=== PATIENT | male | born 2000 | race Caucasian/White ===

== ENCOUNTER 2023-02-16 22:16 | Inpatient (IN) | payer MEDICAID, SELFPAY ==
[2023-02-16 22:25] VITALS: BP 154/103; PULSE 87; RESP 18; TEMP 36.4; O2SAT 94
[2023-02-16 22:35] VITALS: BMI 64.5
[2023-02-17 06:00] VITALS: BP 158/101; PULSE 95; RESP 18; O2SAT 94
[2023-02-17 14:00] VITALS: BP 149/103; PULSE 75; RESP 16; TEMP 36.6; O2SAT 96
--- NOTE | 2023-02-17 16:03 | P.NPUHP_ITS ---
Providers/Chief Complaint Admitting Physician: Robbin Rojo MD Chief Complaint: Manic-Schi HPI NPU History of Present Illness Giovanni Bo is a 22 year old male who presented initially to [facility] ED in [facility] with disorganized thinking and disorganized behavior. The patient was transferred to the neuropsychiatric unit in [facility] for further treatment and diagnostic clarification. Patient reports that he has been hospitalized more than 20 times and per records he has been previously prescribed monthly injections for treating schizophrenia but had stopped the injection a few months ago. The patient's mother had corroborated this information and stated that the patient had been residing with the grandmother and had been more agitated while making physical threats to throw objects at the grandmother. Patient acknowledges that he resides with his grandmother and states that he has been gaining weight. He reports that he had previously been treated through [facility] in [facility]. He reports that he hears several voices in his head and stated that it interferes with his thoughts. He reports that he struggles with knowing the difference between reality and fantasy. Patient reports that he has been in the hospital for several days and appeared somewhat confused during the initial evaluation. Inpatient psychiatric history: He had acknowledged having been diagnosed with schizophrenia and states he has been hospitalized more than 20 times throughout his life. Outpatient psychiatric history: Followed by [facility] per patient in [place]. Previous medications-schizoaffective disorder. Drug and alcohol history: He had reported previously using marijuana but states that he uses no drugs or alcohol currently. Allergies: No known drug allergies Surgical history: None reported Medical history: He reports a history of a back injury with some history of disc herniation, history of morbid obesity Current medications: None Family psychiatric history: None Social history: He is a 2 pack/day smoker lives with his grandparents. He has 2 brothers and 1 sister. He dropped out of school in the 12th grade. He reports that he was raised by his grandparents. He had denied any history of abuse. He had reported having some difficulties with learning growing up. Meds NPU Home Medications Medication Instructions Recorded Confirmed Last Taken Type Unable to Assess 02/16/23 02/16/23 Unknown History Allergies Allergy/AdvReac Type Severity Reaction Status Date / Time No Known Allergies Allergy Verified 02/16/23 23:04 Mental Status Exam MSE Comments: He is an morbidly obese white male who appeared his stated age with poor eye contact. His hygiene was poor. There was no evidence of any abnormal involuntary motor movements tics or tremors appreciated. His speech was monotone in quality within significant paucity of speech and increased latency in speech with normal volume. His mood was described as confused. His affect was blunted. His thought process appeared linear and logical. His thought content showed no evidence of homicidal or suicidal ideation. He did appear to be responding to internal stimuli. There were no overt delusions noted. There was significant evidence of confusion with recent and remote memory being impaired. His insight is impaired. His judgment is poor. His impulse control appeared limited. He was alert and oriented to person and place only. Vitals/I&O/Wt Last Vital Signs Temp 98 F 02/17/23 14:00 Pulse 75 02/17/23 14:00 Resp 16 02/17/23 14:00 BP 149/103 02/17/23 14:00 Pulse Ox 96 02/17/23 14:00 O2 Del Method Room Air 02/17/23 14:00 Weight last 48 hrs Weight 204.117 kg A&P Assessment and plan (1) Schizophrenia: (2) Schizoaffective disorder: Plan 22-year-old male with a history of psychosis likely schizophrenia or schizoaffective disorder currently not taking his medications and actively psychotic. 1. Encourage individual, group and milieu therapy. 2. Recommend sober living treatment at the highest level of care to which the patient is willing to commit. 3. Continue q-15 minute checks for safety.? 4.? Trial of oral antipsychotic, discussed trial of latuda 20mg at night. Involuntary Hold Information 96 Hour Hold: 96 Hour Involuntary Admission: No Attestations NPU Medical Necessity Statement*: Inpatient hospitalization is medically necessary and deemed to be the clinically appropriate intervention at this time. The patient will be started on medicatio ns and medications will be titrated as indicated. Patient will be hospitalized for at least 2 midnights. The patient's likely length of stay is 8-10 days. Coding Level of Care Code Acute Code for [facility] Fwd Diagnoses Schizophrenia F20.9 Schizoaffective disorder F25.9
[2023-02-17] MEDS: lurasidone 20 mg Tablet PO (17:20)
[2023-02-17 19:47] VITALS: BP 156/104; PULSE 98; RESP 18; TEMP 36.8; O2SAT 98
[2023-02-17] MEDS: hyDROXYzine 25 mg Capsule 50 MG PO (23:49)
[2023-02-18 06:00] VITALS: BP 133/79; PULSE 78; RESP 15; TEMP 36.6; O2SAT 96
--- NOTE | 2023-02-18 08:53 | PC.NURSE ---
limited assessment r/t pt asleep in bed in room snoring. rest even et unlabored
--- NOTE | 2023-02-18 10:14 | PC.NURSE ---
contact info mother Megan Noriega [phone]
[2023-02-18 14:00] VITALS: BP 141/104; PULSE 114; RESP 20; TEMP 36.6; O2SAT 95
--- NOTE | 2023-02-18 15:12 | W.PM.NPUPNS ---
Subjective NPU Subjective: 22-year-old male with a history of schizophrenia admitted with disorganized thinking and disorganized behavior along with the presence of command auditory hallucinations. He continued to report that he was hearing voices and stated that it was difficult to hear his own thoughts due to the intensity and frequency of the hallucinations. He had isolated himself on the milieu. He had reported no side effects from his Latuda given last night. There was no evidence of aggression on the milieu. He continued to isolate himself on the milieu and had required some prompting to eat food. Mental Status Exam MSE Comments: He is an morbidly obese white male who appeared his stated age with poor eye contact and extremely poor hygiene. There was no evidence of any abnormal involuntary motor movements tics or tremors appreciated. His speech was monotone in quality with significant paucity of speech and increased speech latency with normal volume. His mood was described as okay. His affect was blunted and mood incongruent. His thought process appeared linear and logical. His thought content showed no evidence of homicidal or suicidal ideation. He did appear to be responding to internal stimuli. There were no overt delusions noted. There was significant evidence of confusion with recent and remote memory being impaired. His insight is impaired. His judgment is poor. His impulse control appeared limited. He was alert and oriented to person and place only. Vitals/I&O/Wt Last Vital Signs Temp 97.9 F 02/18/23 14:00 Pulse 114 H 02/18/23 14:00 Resp 20 H 02/18/23 14:00 BP 141/104 02/18/23 14:00 Pulse Ox 95 02/18/23 14:00 O2 Del Method Room Air 02/18/23 06:00 Weight last 48 hrs Weight 204.117 kg A&P Assessment and plan (1) Schizophrenia: (2) Schizoaffective disorder: Plan 22-year-old male with a history of psychosis likely schizophrenia or schizoaffective disorder currently not taking his medications and actively psychotic. 1. Encourage individual, group and milieu therapy. 2. Recommend sober living treatment at the highest level of care to which the patient is willing to commit. 3. Continue q-15 minute checks for safety.? 4.? Increase latuda 40mg at night. Involuntary Hold Information 96 Hour Hold: 96 Hour Involuntary Admission: No Attestations NPU Medical Necessity Statement*: Inpatient hospitalization is medically necessary and deemed to be the clinically appropriate intervention at this time. The patient will be started on medications and medications will be titrated as indicated. The patient's likely length of stay is 8-10 days. Coding Level of Care Code Acute Code for [facility] Fwd Diagnoses Schizophrenia F20.9 Schizoaffective disorder F25.9
[2023-02-18] MEDS: lurasidone 20 mg Tablet 40 MG PO (18:20)
[2023-02-18 19:51] VITALS: BP 117/76; PULSE 84; RESP 18; TEMP 36.6; O2SAT 95
[2023-02-19 06:00] VITALS: RESP 16
[2023-02-19 14:00] VITALS: BP 120/78; PULSE 86; RESP 18; TEMP 36.6; O2SAT 97
--- NOTE | 2023-02-19 15:58 | P.NPUPN_ITS ---
Subjective NPU Subjective: 22-year-old male with a history of schiz ophrenia admitted with disorganized thinking and disorganized behavior along with the presence of command auditory hallucinations. The patient had appeared excessively tired and continued to have limited interaction with staff or peers. He had made some attempt to try to leave the hospital but was redirectable. He had reported no side effects from his Latuda. He continued to endorse being distracted by his thoughts. Mental Status Exam MSE Comments: He is an morbidly obese white male who appeared his stated age with poor eye contact and extremely poor hygiene. There was no evidence of any abnormal involuntary motor movements tics or tremors appreciated. His speech was monotone in quality with significant paucity of speech and increased speech latency with normal volume. His mood was described as allright. His affect was blunted and mood incongruent. His thought process appeared linear but derailed later. His thought content showed no evidence of homicidal or suicidal ideation. He did appear to be responding to internal stimuli reporting multiple voices around him. There were no overt delusions noted. There was signi ficant evidence of confusion with recent and remote memory being impaired. His insight is impaired. His judgment is poor. His impulse control appeared limited. He was alert and oriented to person and place only. Vitals/I&O/Wt Last Vital Signs Temp 97.9 F 02/18/23 19:51 Pulse 84 02/18/23 19:51 Resp 16 02/19/23 06:00 BP 117/76 02/18/23 19:51 Pulse Ox 95 02/18/23 19:51 O2 Del Method Room Air 02/18/23 19:51 A&P Assessment and plan (1) Schizophrenia: (2) Schizoaffective disorder: Plan 22-year-old male with a history of psychosis likely schizophrenia or schizoaffective disorder currently not taking his medications and actively psychotic. 1. Encourage individual, group and milieu therapy. 2. Recommend sober living treatment at the highest level of care to which the patient is willing to commit. 3. Continue q-15 minute checks for safety.? 4.? Continue latuda 40mg at night. Involuntary Hold Information 96 Hour Hold: 96 Hour Involuntary Admission: No Attestations NPU Medical Necessity Statement*: Inpatient hospitalization is medically necessary and deemed to be the clinically appropriate intervention at this time. The patient will be started on medications and medications will be titrated as indicated. The patient's likely length of stay is 8-10 days. Coding Level of Care Code Acute Code for [facility] Fwd Diagnoses Schizophrenia F20.9 Schizoaffective disorder F25.9
[2023-02-19] MEDS: lurasidone 20 mg Tablet 40 MG PO (17:48)
[2023-02-19] MEDS: OLANZapine 5 mg ODT PO (19:43)
--- NOTE | 2023-02-19 20:13 | PC.NURSE ---
SITTING ON BED STARRING AT FLOOR, LIMITED EYE CONTACT NOTED. PT IS OBSERVED TO HAVE A FLAT AFFECT AND GUARDED, SPEECH IS DELAYED OR POSSIBLY LIMITED. PT DENIES SI/HI AND AVH AT THIS TIME. 5ATES ANXIETY 11/10 AND DEPRESSION 12/10. PT WAS OFFERED MEDICATION TO HELP HIS ANXIETY GO DOWN. PT ACCEPTED. PT WAS GIVEN ZYDIS 5 MG ORDERED FOR INCREASED ANXIETY AND AGITATION. PT DENIES PAIN. PT WAS OFFERED A SHOWER DUE TO HYGIENE BEING POOR. PT SHOWERED AND HOSPITAL WARD CLERK WENT TO GET CLOTHING THAT FIT. PT AGREES TO WEAR GOWN IF SCRUBS DO NOT GO UP TO HIS SIZE. ALL QUESTIONS ANSWERED AND SUPPORT VOICED.
[2023-02-19 20:47] VITALS: BP 141/95; PULSE 129; RESP 20; TEMP 36.4; O2SAT 93
--- NOTE | 2023-02-19 22:24 | PC.NURSE ---
AT 2200 PT WAS OBSERVED ON PHONE TALKING AND STATING YOU BETTER TELL THEM TO LET ME OUT OR I'M GONNA START PUNCHING PEOPLE. PT STARTED TO YELL AND CUSS WHILE ON PHONE. STAFF INFORMED PT THAT OTHER PATIENTS ARE SLEEPING AND HE NEEDS TO BE QUIET. PT THEN TOLD STAFF TO FUCK OFF AND LET ME OUT. THEN BANGED THE PHONE AGAINST THE HANDSET ON THE WALL. PT THEN WALKED OFF STOMPING SAYING I'M GOING TO GET OUT OF HERE IF YOU LET ME OUT OR NOT. PT STARTED CHECKING DOORS AND RATTLING KNOBS. SECURITY AND [employer] EMERGENCY DISPATCHER CALLED FOR STANDBY ASSIST IF NEEDED. PT CONTINUED TO CHECK DOORS BUT DID STOP YELLING. AT 2228 PT IS CURRENTLY SITTING ON BED STARRING OUT THE WINDOW.
[2023-02-20 06:00] VITALS: RESP 18
--- NOTE | 2023-02-20 12:08 | PC.NURSE ---
Patient yelled at nurses' station, macarenay, is anyone gonna talk to the doctor?! This RN was on the phone and told him we would be with him in a moment. After getting off of the phone patient was asked what we could do for him and he asked again, has anyone talked to the doctor? This RN asked him what he would like us to talk to the doctor about and he rolled his eyes and walked to his room.
[2023-02-20 14:00] VITALS: BP 146/109; PULSE 98; RESP 15; O2SAT 93
--- NOTE | 2023-02-20 14:55 | W.PM.NPUPNS ---
Subjective NPU Subjective: 22-year-old male with a history of schizophrenia admitted with disorganized thinking and disorganized behavior along with the presence of command auditory hallucinations. The patient reported no side effects from his Latuda at this time. He continued to appear very confused on the milieu. He continued to report that his thoughts were not his own. He reported hearing several voices in his head that interfered with his ability to concentrate and think. He had isolated himself throughout the day in his room. He continued to show evidence of poor hygiene with significant prompting required for showering and engaging in self-care including brushing his teeth. Mental Status Exam MSE Comments: He is an morbidly obese white male who appeared his stated age with poor eye contact and extremely poor hygiene. There was no evidence of any abnormal involuntary motor movements tics or tremors appreciated. His speech was monotone in quality with significant paucity of speech and continued increase in speech latency with normal volume. His mood was described as okay. His affect was blunted and mood incongruent. His thought process appeared linear but derailed later. His thought content showed no evidence of homicidal or suicidal ideation. He did appear to be responding to internal stimuli. There were no overt delusions noted. There was significant evidence of confusion with recent and remote memory being impaired. His insight is impaired. His judgment is poor. His impulse control appeared limited. He was alert and oriented to person and place only. Vitals/I&O/Wt Last Vital Signs Temp 97.6 F 02/19/23 20:47 Pulse 129 H 02/19/23 20:47 Resp 18 02/20/23 06:00 BP 141/95 02/19/23 20:47 Pulse Ox 93 02/19/23 20:47 O2 Del Method Room Air 02/19/23 20:47 A&P Assessment and plan (1) Schizophrenia: (2) Schizoaffective disorder: Plan 22-year-old male with a history of psychosis likely schizophrenia or schizoaffective disorder currently not taking his medications and actively psychotic. 1. Encourage individual, group and milieu therapy. 2. Recommend sober living treatment at the highest level of care to which the patient is willing to commit. 3. Continue q-15 minute checks for safety.? 4.?Increase latuda to 60mg at night. Involuntary Hold Information 96 Hour Hold: 96 Hour Involuntary Admission: No Attestations NPU Medical Necessity Statement*: Inpatient hospitalization is medically necessary and deemed to be the clinically appropriate intervention at this time. The patient will be started on medications and medications will be titrated as indicated. The patient's likely length of stay is 8-10 days. Coding Level of Care Code Acute Code for [facility] Fwd Diagnoses Schizophrenia F20.9 Schizoaffective disorder F25.9
--- NOTE | 2023-02-20 16:16 | PC.NURSE ---
Patient checking doors and demanding to be discharged. He appears somewhat confused, making strange statements such as, you guys pushed the button. You did it. Patient was unable to clarify what this statement meant. He also walked to room 170 and pushed the code blue button. This RN attempted to redirect him and he stated, I did something for you, now you do something for me. Let me out. Nursing staff also attempted to give patient clothes that would fit him better, but he refused to try to utilize them.
[2023-02-20 19:55] VITALS: BP 127/80; PULSE 85; RESP 18; O2SAT 93
[2023-02-20] MEDS: trazodone 50 mg Tablet PO (20:03)
[2023-02-20] MEDS: lurasidone 20 mg Tablet 60 MG PO (20:03)
[2023-02-20] MEDS: haloperidol 5 mg Tablet PO (20:03)
--- NOTE | 2023-02-20 20:22 | PC.NURSE ---
IN BED AWAKE, PT HAS BEEN TO NURSES STATION WITHOUT SHIRT AND KEEPS CLOSING HIS DOOR ALL THE WAY. PT HAS BEEN VERBALLY REDIRECTED AND INSTRUCTED TO LEAVE DOOR OPEN AND PUT SHIRT ON WHEN HE COMES OUT OF ROOM. PT DID GET UPSET BUT WAS ABLE TO FOLLOW DIRECTIONS. PT DENIES PAIN. DENIES SI/HI AND AVH AT THIS TIME. PT STILL STATES HE WANTS TO LEAVE. PT EDUCATED HE IS ON A HOLD AND STAFF ARE TRYING TO HELP HIM. PT REFUSED LATUDA AT 1900 FOR AM NURSE. PT REQUESTED MEDICATIONS FOR SLEEP AND ANXIETY. RATES ANXIETY 07/10 AND DEPRESSION 12/10. PT DID TAKE LATUDA 60 MG WITH EDUCATION AND ENCOURAGEMENT FROM THIS RN. PT WAS ALSO GIVEN TRAZODONE 50 MG REQUESTED FOR SLEEP ORDERED AND HALDOL 5 MG FOR INCREASED ANXIETY ORDERED. PT TOOK MEDICATIONS WITHOUT ISSUES. ALL QUESTIONS ANSWERED AND SUPPORT WAS VOICED. PT NOTED TO HAVE FLAT AFFECT AND IS GUARDED AND SUSPICIOUS ABOUT STAFF AND WHY HE IS HERE.
--- NOTE | 2023-02-21 06:38 | PC.NURSE ---
pt resp documented.
--- NOTE | 2023-02-21 13:18 | P.NPUPN_ITS ---
Subjective NPU Subjective: 22-year-old male with a history of schiz ophrenia admitted with disorganized thinking and disorganized behavior along with the presence of command auditory hallucinations. The patient continue to isolate himself on the milieu. He appeared to have extremely poor hygiene and was disinterested. He had been compliant with his medication and reported no change in his thoughts. He continued to report hearing multiple voices in his head. He stated that he continued to be distracted by his thoughts. Mental Status Exam MSE Comments: He is an morbidly obese white male who appeared his stated age with poor eye contact and extremely poor hygiene. There was no evidence of any abnormal involuntary motor movements tics or tremors appreciated. His speech was monotone in quality with significant paucity of speech and continued increase in speech latency with normal volume. His mood was described as okay. His affect was blunted and mood incongruent. His thought process appeared walker perficial but linear. His thought content showed no evidence of homicidal or suicidal ideation. He did appear to be responding to internal stimuli. There were no overt delusions noted although there was vague ideas of reference. There was significant evidence of confusion with recent and remote memory being impaired. His insight is impaired. His judgment is poor. His impulse control appeared limited. He was alert and oriented to person and place only. Vitals/I&O/Wt Last Vital Signs Temp 97.6 F 02/19/23 20:47 Pulse 85 02/20/23 19:55 Resp 18 02/20/23 19:55 BP 127/80 02/20/23 19:55 Pulse Ox 93 02/20/23 19:55 O2 Del Method Room Air 02/20/23 19:55 A&P Assessment and plan (1) Schizophrenia: (2) Schizoaffective disorder: Plan 22-year-old male with a history of psychosis likely schizophrenia or schizoaffective disorder currently not taking his medications and actively psychotic. 1. Encourage individual, group and milieu therapy. 2. Recommend sober living treatment at the highest level of care to which the patient is willing to commit. 3. Continue q-15 minute checks for safety.? 4.?Continue latuda at 60mg at night. Involuntary Hold Information 96 Hour Hold: 96 Hour Involuntary Admission: No Attestations NPU Medical Necessity Statement*: Inpatient hospitalization is medically necessary and deemed to be the clinically appropriate intervention at this time. The patient will be started on medications and medications will be titrated as indicated. The patient's likely length of stay is 8-10 days. Coding Level of Care Code Acute Code for [facility] Fwd Diagnoses Schizophrenia F20.9 Schizoaffective disorder F25.9
[2023-02-21 16:00] VITALS: BP 132/77; PULSE 78; RESP 14; TEMP 36.6; O2SAT 93
[2023-02-21] MEDS: lurasidone 20 mg Tablet 60 MG PO (17:44)
[2023-02-21 21:22] VITALS: BP 156/106; PULSE 87; RESP 20; TEMP 36.3; O2SAT 92
[2023-02-21] MEDS: nicotine 2 mg Gum BUCCAL (22:06)
[2023-02-22 06:00] VITALS: RESP 16
[2023-02-22] MEDS: nicotine 2 mg Gum BUCCAL ×2 (07:13→18:03)
--- NOTE | 2023-02-22 07:54 | PC.NURSE ---
Patient denies avh and hi. Patient did say he felt very depressed and described it as you know when you're at a republican and then you come back and it doesn't feel the same anymore? That's how it feels. When asked if he had felt like hurting himself he replied, I wouldn't say that. But I would definitely say I'm at my lowest. Patient does endorse low energy and decreased desire to do things he would normally want to do.
--- NOTE | 2023-02-22 12:10 | W.PM.NPUPNS ---
Subjective NPU Subjective: Patient presented today reporting that he is feeling okay. We did talk about trying to get him close this felt better. He reports that he feels the medication is helping and it does not appear that he had been on medication prior to coming to the hospital. We discussed that taking time and that we would monitor him daily to identify improvement in the medication. Mental Status Exam MSE Comments: This is a morbidly obese white male who appeared his stated age with poor eye contact and extremely poor hygiene. There was no evidence of any abnormal involuntary motor movements tics or tremors appreciated. There was mild psychomotor retardation. He was mostly cooperative with exam in mild distress. His speech was monotone in quality with significant paucity of speech and continued increase in speech latency with normal volume. His mood was described as okay. His affect was blunted . His thought process appeared superficial but linear. His thought content showed no evidence of homicidal or suicidal ideation. He did appear to be responding to internal stimuli. There were no overt delusions noted although there was vague ideas of reference. There was significant evidence of confusion with recent and remote memory being impaired. His insight is impaired. His judgment is poor. His impulse control appeared limited. He was alert and oriented to person and place only. Vitals/I&O/Wt Last Vital Signs Temp 97.3 F L 02/21/23 21:22 Pulse 87 02/21/23 21:22 Resp 16 02/22/23 06:00 BP 156/106 02/21/23 21:22 Pulse Ox 92 02/21/23 21:22 O2 Del Method Room Air 02/21/23 16:00 A&P Assessment and plan (1) Schizophrenia: (2) Schizoaffective disorder: Plan 22-year-old male with a history of psychosis likely schizophrenia or schizoaffective disorder currently not taking his medications and actively psychotic. 1. Encourage individual, group and milieu therapy. 2. Recommend sober living treatment at the highest level of care to which the patient is willing to commit. 3. Continue q-15 minute checks for safety.? 4.?Continue latuda at 60mg at night. Involuntary Hold Information 96 Hour Hold: 96 Hour Involuntary Admission: No Attestations NPU Medical Necessity Statement*: Inpatient hospitalization is medically necessary and deemed to be the clinically appropriate intervention at this time. The patient will be started on medications and medications will be titrated as indicated. The patient's likely length of stay is 7-9 days. Coding Level of Care Code Acute Code for g Fwd Diagnoses Schizophrenia F20.9 Schizoaffective disorder F25.9
[2023-02-22 14:00] VITALS: BP 128/77; PULSE 80; RESP 16; TEMP 36.8; O2SAT 95
[2023-02-22] MEDS: lurasidone 20 mg Tablet 60 MG PO (18:02)
[2023-02-22 19:58] VITALS: BP 144/82; PULSE 110; RESP 18; O2SAT 94
[2023-02-23 06:00] VITALS: BP 102/63; PULSE 69; RESP 15; TEMP 36.8; O2SAT 83
[2023-02-23] MEDS: nicotine 2 mg Gum BUCCAL ×5 (08:08→20:03)
--- NOTE | 2023-02-23 11:59 | PC.NURSE ---
PT MOTHER CALLED THIS NURSE ENSURED THAT PT HAS MOTHER ON HIS PT CONTACT LIST AND SHE IS. PT MOTHER IS CONCERNED ABOUT PT PLACEMENT AFTER HOSPITAL STAY. PT MOTHER DOES NOT WISH FOR PT TO GO BACK TO STAY WITH HIS GRANDMOTHER SHE DOES NOT FEEL SHE IS ABLE TO CARE FOR HIM AT THIS TIME. PT MOTHER WOULD PREFER TO HAVE PLACEMENT IN A FACILITY OR A NURSING HOME TO CARE FOR HIM THAT IS NEAR HER.
--- NOTE | 2023-02-23 12:22 | P.NPUPN_ITS ---
Subjective NPU Subjective: Patient presented today continuing to struggle with his psychosis. He identified that he was supposed to be discharged today with there being no evidence to that end. He also claimed that he had been here for 4 weeks when he has not been here for even a week. He said that they are doing something with the time. At 1 point while reporting that he was calling a friend he called 911 and they called us back and identified that they know him from this kind of behavior. We discussed the fact that we are going to need to increase the Latuda and possibly add another agent in an attempt to clear his psychosis and will likely need a 21-day hold. Mental Status Exam MSE Comments: This is a morbidly obese white male who appeared his stated age with poor eye contact and extremely poor hygiene. There was no evidence of any abnormal involuntary motor movements tics or tremors appreciated. There was mild psychomotor retardation. He was mostly cooperative with exam in mild distress. His speech was monotone in quality with significant paucity of speech and continued increase in speech latency with normal volume. His mood was described as okay. His affect was blunted . His thought process appeared superficial but linear. His thought content showed no evidence of homicidal or suicidal ideation. He did appear to be responding to internal stimuli. There were no overt delusions noted although there was vague ideas of reference. There was significant evidence of confusion with recent and remote memory being impaired. His insight is impaired. His judgment is poor. His impulse control appeared limited. He was alert and oriented to person and place only. Vitals/I&O/Wt Last Vital Signs Temp 98.2 F 02/23/23 06:00 Pulse 69 02/23/23 06:00 Resp 15 02/23/23 06:00 BP 102/63 02/23/23 06:00 Pulse Ox 83 L 02/23/23 06:00 O2 Del Method Room Air 02/23/23 06:00 Weight last 48 hrs Weight 199.581 kg Weight 204.117 kg A&P Assessment and plan (1) Schizophrenia: (2) Schizoaffective disorder: Plan 22-year-old male with a history of psychosis likely schizophrenia or schizoaffective disorder currently not taking his medications and actively psychotic. 1. Encourage individual, group and milieu therapy. 2. Recommend sober living treatment at the highest level of care to which the patient is willing to commit. 3. Continue q-15 minute checks for safety.? 4.?Continue latuda at 60mg at night. May have to consider Invega or Abilify in addition to increasing Latuda to assist with psychosis Involuntary Hold Information 96 Hour Hold: 96 Hour Involuntary Admission: No Attestations NPU Medical Necessity Statement*: Inpatient hospitalization is medically necessary and deemed to be the clinically appropriate intervention at this time. The patient will be started on me dications and medications will be titrated as indicated. The patient's likely length of stay is 7-9 days. Coding Level of Care Code Acute Code for [facility] Fwd Diagnoses Schizophrenia F20.9 Schizoaffective disorder F25.9
--- NOTE | 2023-02-23 13:31 | PC.NURSE ---
THE POLICE DEPARTMENT CONTACTED THE UNIT STATING THAT THIS PT HAD CONTACTED THEM TELLING THEM TAHT WE NEEDED THEM. ATTEMPTED EDUCATION ON THAT THE PT SHOULD NOT CONTACT 911 HE IS ON A HOLD. PT IS RESISTANT TO LEARNING AND IRRITABLE ABOUT NOT BEING ABLE TO LEAVE THE UNIT AT THIS TIME.
[2023-02-23 14:00] VITALS: BP 153/86; PULSE 85; RESP 15; TEMP 36.4; O2SAT 92
[2023-02-23] MEDS: lurasidone 20 mg Tablet 60 MG PO (18:06)
[2023-02-23 19:38] VITALS: BP 145/94; PULSE 87; RESP 15; TEMP 36.7; O2SAT 95
[2023-02-24 06:00] VITALS: BP 153/83; PULSE 69; RESP 16; TEMP 36.5; O2SAT 93
--- NOTE | 2023-02-24 09:45 | P.NPUPN_ITS ---
Subjective NPU Subjective: Patient presented today reporting that he is doing okay. He was appearing a little less confused per staff and slightly less so and direct interview. He reports he is not having any problems with the Latuda but insinuated or alluded to the fact that he is essentially doing what ever is asked of him and likely will not take the medication when he is gone. We discussed how that would likely lead to him returning or some situation with him having less control. He then alluded to his grandmother being his guardian and it was unclear if he understood what that meant but he suggested that his head is attached to her house. We agreed we would have the social work team connect with her to make sure we understood the relationship. Mental Status Exam MSE Comments: This is a morbidly obese white male who appeared his stated age with poor eye contact and extremely poor hygiene. There was no evidence of any abnormal involuntary motor movements tics or tremors appreciated. There was mild psychomotor retardation. He was mostly cooperative with exam in mild distress. His speech was monotone in quality with significant paucity of speech and continued increase in speech latency with normal volume. His mood was described as okay. His affect was blunted . His thought process appeared superficial but linear. His thought content showed no evidence of homicidal or suicidal ideation. He did appear to be responding to internal stimuli. There were no overt delusions noted although there was vague ideas of reference. There was significant evidence of confusion with recent and remote memory being impaired. His insight is impaired. His judgment is poor. His impulse control appeared limited. He was alert and oriented to person and place only. Vitals/I&O/Wt Last Vital Signs Temp 97.7 F 02/24/23 06:00 Pulse 69 02/24/23 06:00 Resp 16 02/24/23 06:00 BP 153/83 02/24/23 06:00 Pulse Ox 93 02/24/23 06:00 O2 Del Method Room Air 02/24/23 06:00 Weight last 48 hrs Weight 199.581 kg Weight 204.117 kg A&P Assessment and plan (1) Schizophrenia: (2) Schizoaffective disorder: Plan 22-year-old male with a history of psychosis likely schizophrenia or schizoaffective disorder currently not taking his medications and actively psychotic. 1. Encourage individual, group and milieu therapy. 2. Recommend sober living treatment at the highest level of care to which the patient is willing to commit. 3. Continue q-15 minute checks for safety.? 4.?Continue latuda at 60mg at night. May have to consider Invega or Abilify in addition to increasing Latuda to assist with psychosis Involuntary Hold Information 96 Hour Hold: 96 Hour Involuntary Admission: No Attestations NPU Medical Necessity Statement*: Inpatient hospitalization is medically necessary and deemed to be the clinically appropriate intervention at this time. The patient will be started on medications and medications will be titrated as indicated. The patient's likely length of stay is 7-9 days. Coding Level of Care Code Acute Code for [facility] Fwd Diagnoses Schizophrenia F20.9 Schizoaffective disorder F25.9
[2023-02-24] MEDS: nicotine 2 mg Gum BUCCAL (13:08)
[2023-02-24 14:00] VITALS: BP 141/87; PULSE 68; RESP 20; TEMP 36.9; O2SAT 96
[2023-02-24] MEDS: lurasidone 20 mg Tablet 60 MG PO (17:54)
[2023-02-24 20:09] VITALS: BP 138/82; PULSE 110; RESP 18; TEMP 36.9; O2SAT 94
[2023-02-24] MEDS: trazodone 50 mg Tablet PO ×2 (20:34→22:08)
[2023-02-24] MEDS: haloperidol 5 mg Tablet PO (20:34)
--- NOTE | 2023-02-24 21:47 | PC.NURSE ---
IN BED RESTING AROUSES TO VOICE. PT DENIES SI/HI AND AVH AT THIS TIME. PT DENIES PAIN. CONTINUES TO HAVE A FLAT AFFECT AND ISOLATES AND IS WITHDRAWN TO ROOM. PT APPEARS SAD AND DISTANT. RATES ANXIETY AND DEPRESSION 10/. PT REQUEST SOMETHING FOR ANXIETY AND TO HELP HIM SLEEP. PT WAS GIVENS HALDOL 5 MG FOR INCREASED ANXIETY AND TRAZODONE 50 MG ORDERED FOR INSOMNIA. PT WAS GIVEN A SANDWHICH AND DRINK REQUESTED. ALL QUESTIONS ANSWERED AND SUPPORT VOICED.
[2023-02-24] MEDS: hyDROXYzine 25 mg Capsule 50 MG PO (22:08)
--- NOTE | 2023-02-25 05:12 | PC.NURSE ---
PT CONTINUED TO BE AGITATED AND UNABLE TO SLEEP AFTER TRAZODONE 50 MG AND HALDOL 5MG THAT WAS GIVEN LAST NIGHT. TRAZODONE 50 MG WAS REPEATED ORDERED AND VISTARIL 50 MG WAS GIVEN ORDERED FOR CONTINUED ANXIETY. MEDICATIONS DEEMED EFFECTIVE. PT HAS SLEPT APPROXIMATELY 9 HOURS THIS SHIFT.
[2023-02-25 06:00] VITALS: RESP 16
[2023-02-25] MEDS: eucerin cream 113 gm Jar 1 APPLIC TOPICAL (10:48)
[2023-02-25] MEDS: nicotine 2 mg Gum BUCCAL (11:21)
[2023-02-25 14:00] VITALS: BP 122/80; PULSE 73; RESP 20; TEMP 36.3; O2SAT 95
[2023-02-25] MEDS: lurasidone 80 mg Tablet PO (18:27)
--- NOTE | 2023-02-25 18:47 | P.NPUPN_ITS ---
Subjective NPU Subjective: Patient presented today reporting that he is doing okay. He was appearing confused still per staff. He reports he is not having any problems with the Latuda but insinuated or alluded to the fact that he is essentially doing what ever is asked of him and likely will not take the medication when he is gone. He then alluded to his grandmother being his guardian and so we discussed we are trying to reach her to figure this out. We discussed likelihood we would need to file for 21 day hold. Mental Status Exam MSE Comments: This is a morbidly obese white male who appeared his stated age with poor eye contact and extremely poor hygiene. There was no evidence of any abnormal involuntary motor movements tics or tremors appreciated. There was mild psychomotor retardation. He was mostly cooperative with exam in mild distress. His speech was monotone in quality with significant paucity of speech and continued increase in speech latency with normal volume. His mood was described as okay. His affect was blunted . His thought process appeared superficial but linear. His thought content showed no evidence of homicidal or suicidal ideation. He did appear to be responding to internal stimuli. There were no overt delusions noted although there was vague ideas of reference. There was significant evidence of confusion with recent and remote memory being impaired. His insight is impaired. His judgment is poor. His impulse control appeared limited. He was alert and oriented to person and place only. Vitals/I&O/Wt Last Vital Signs Temp 98.2 F 02/25/23 20:01 Pulse 86 02/25/23 20:01 Resp 20 H 02/25/23 20:01 BP 136/81 02/25/23 20:01 Pulse Ox 97 02/25/23 20:01 O2 Del Method Room Air 02/25/23 20:01 A&P Assessment and plan (1) Schizophrenia: (2) Schizoaffective disorder: Plan 22-year-old male with a history of psychosis likely schizophrenia or schizoaffective disorder currently not taking his medications and actively psychotic. 1. Encourage individual, group and milieu therapy. 2. Recommend sober living treatment at the highest level of care to which the patient is willing to commit. 3. Continue q-15 minute checks for safety.? 4.?Continue latuda at 60mg at night. Increase to 80 mg. May have to consider Invega or Abilify to assist with psychosis Involuntary Hold Information 96 Hour Hold: 96 Hour Involuntary Admission: No Attestations NPU Medical Necessity Statement*: Inpatient hospitalization is medically necessary and deemed to be the clinically appropriate intervention at this time. The patient will be started on medications and medications will be titrated as indicated. The patient's likely length of stay is 7-9 days. Coding Level of Care Code Acute Code for [facility] Fwd Diagnoses Schizophrenia F20.9 Schizoaffective disorder F25.9
[2023-02-25 20:01] VITALS: BP 136/81; PULSE 86; RESP 20; TEMP 36.8; O2SAT 97
[2023-02-26 06:00] VITALS: RESP 18
[2023-02-26] MEDS: nicotine 2 mg Gum BUCCAL ×4 (08:38→18:54)
[2023-02-26 14:00] VITALS: RESP 18
--- NOTE | 2023-02-26 14:16 | PC.NURSE ---
at phone, patient upset, stating that he needs to be discharged. patient states that if he had a cigarrette then he might be able to stay. patient at door. patient stating that we need to release him
--- NOTE | 2023-02-26 14:36 | W.PM.NPUPNS ---
Subjective NPU Subjective: Patient presented today reporting that he is wanting to leave but unable to articulate the reason why speaking about a lot of different subjects not relating to discharge. He had a code 10 moment yesterday and discussed filing for the 21-day hold. We discussed not having a guardian and need for a more reliable antipsychotic like injectable or Clozaril. Mental Status Exam MSE Comments: This is a morbidly obese white male who appeared his stated age with poor eye contact and extremely poor hygiene. There was no evidence of any abnormal involuntary motor movements tics or tremors appreciated. There was mild psychomotor retardation. He was mostly cooperative with exam in mild distress. His speech was monotone in quality with significant paucity of speech and continued increase in speech latency with normal volume. His mood was described as okay. His affect was blunted . His thought process appeared superficial but linear. His thought content showed no evidence of homicidal or suicidal ideation. He did appear to be responding to internal stimuli. There were no overt delusions noted although there was vague ideas of reference. There was significant evidence of confusion with recent and remote memory being impaired. His insight is impaired. His judgment is poor. His impulse control appeared limited. He was alert and oriented to person and place only. Vitals/I&O/Wt Last Vital Signs Temp 98.2 F 02/25/23 20:01 Pulse 86 02/25/23 20:01 Resp 18 02/26/23 06:00 BP 136/81 02/25/23 20:01 Pulse Ox 97 02/25/23 20:01 O2 Del Method Room Air 02/25/23 20:01 A&P Assessment and plan (1) Schizophrenia: (2) Schizoaffective disorder: Plan 22-year-old male with a history of psychosis likely schizophrenia or schizoaffective disorder currently not taking his medications and actively psychotic. 1. Encourage individual, group and milieu therapy. 2. Recommend sober living treatment at the highest level of care to which the patient is willing to commit. 3. Continue q-15 minute checks for safety.? 4.?Continue latuda at 60mg at night. Increased to 80 mg. May have to consider Invega or Abilify to assist with psychosis Involuntary Hold Information 96 Hour Hold: 96 Hour Involuntary Admission: No Attestations NPU Medical Necessity Statement*: Inpatient hospitalization is medically necessary and deemed to be the clinically appropriate intervention at this time. The patient will be started on medications and medications will be titrated as indicated. The patient's likely length of stay is 7-9 days. Which may be lengthened by 21-day hold. Coding Level of Care Code Acute Code for [facility] Fwd Diagnoses Schizophrenia F20.9 Schizoaffective disorder F25.9
--- NOTE | 2023-02-26 15:03 | DCPLANNER ---
IMM was printed and copy was placed in pts file.
--- NOTE | 2023-02-26 17:03 | PC.NURSE ---
CODE 10 called. Patient at using full body weight against door. patient punching at glass around nurse station. Patient demanding to be let out. No medications administered. Patient appears to be delusional. talking to self about DNA patches and how DNA is intermingled. Difficult to redirect patient. After code called, patient eventually calmed down and staff gave him space. Patient continued to talk to self.
--- NOTE | 2023-02-26 18:16 | PC.NURSE ---
REFUSED VITALS PT REFUSED 1400 VITALS. RESPIRATIONS WERE COUNTED AT 18. WILL CONTINUE TO MONITOR.
[2023-02-26] MEDS: lurasidone 80 mg Tablet PO (18:56)
--- NOTE | 2023-02-26 19:00 | PC.NURSE ---
patient refused latuda, stating that the timing isn't right. When asked about what timing would be more fitting, patient stated in a next life . Multiple attempts, patient still refused.
[2023-02-26 20:30] VITALS: BP 165/106; PULSE 113; RESP 18; TEMP 36.3; O2SAT 96
--- NOTE | 2023-02-26 21:11 | PC.NURSE ---
Patient has been on the bench by the nurses station for at least the past hour. Patient has been talking to himself about delusional thoughts. Talking about the law and bible. Demanding that we let him out and stating that he does not have a problem with fighting anyone that messes with him. Patient stated that he has been waiting all day to be discharged and we just need to open the doors and let him out.
--- NOTE | 2023-02-26 21:42 | PC.NURSE ---
AT NURSES STATION DEMANDING HE BE DISCHARGED,APPEARS TO BE RESPONDING TO EXTERNAL STIMULI, HAS BEEN CONVERSING WITH UNSEEN OTHERS NOW FOR 3 HOURS. REFUSED ANY ANTI ANXIETY MEDICATIONS TO HELP HIM RELAX. PT IS CONSTANTLY SPEAKING WITHOUT TAKING A BREAK, CONVERSATION IS NONSENSICAL IN NATURE. MAKING STATEMENT ABOUT HOW THINGS ARE ILLEGAL AND HE KNOWS IT. PT VERBALLY REDIRECTED WITH LITTLE RESOLVE. PT DENIES SI/HI AND AVH AT THIS TIME. DENIES PAIN. DECLINES RATING ANXIETY AND DEPRESSION STATING I'M DONE BEING FORCED MEDICATIONS. PT WAS EDUCATED THAT NO ONE HERE HAS FORCED HIM TO TAKE MEDICATIONS. PT STATED I KNOW ITS JUST NOT GOING TO HAPPEN ANYMORE. SUPPORT VOICED, INCREASE IN STAFF PRESENCE FOR VERBAL REDIRECTION AND PT CHOICES.
--- NOTE | 2023-02-26 22:20 | PC.NURSE ---
Patient continues to talk to himself with delusional thoughts near the nurses station. Patient stated that for legal reason we need to let him out. Patient then proceeded to push on the door to the front lobby. Patient then continue to talk about releasing him for legal reason.
--- NOTE | 2023-02-27 00:26 | PC.NURSE ---
Patient still on the bench near the nurses station stating that this is malpractice and that he will be leaving tomorrow no matter what. This tech informed patient that he would need to speak with the doctor about this in the morning. Patient is not being compliant with directions or instructions of lowering his voice or walking away from the nurses station. Patient is continuing to speak in a loud voice about how people need to stop pushing his fucking buttons and that this is all malpractice and that we had better let him out. Patient is now making treats that if anyone has anything to say to him they can step in the akers and say it to his fucking face Charge Nurse informed of patients threats.
--- NOTE | 2023-02-27 00:59 | PC.NURSE ---
PT CONTINUES TO SIT ON BENCH BY NURSES STATION AND SPEAK TO UNSEEN OTHERS WELL YELL AT THE NURSING STAFF THINGS LIKE THIS IS MALPRACTICE AND YOU KNOW IT. MAYBE YOU ALL NEED TO COME OUT IN THE [place] AND TELL ME THAT SHIT TO MY FACE AND I'M GONNA KNOCK YOU ALL OUT. PT HAS BEEN ENCOURAGED TO GO TO DAY ROOM OR TO ROOM. PT HAS ALSO BEEN OFFERED PHARMACEUTICAL INTERVENTION BUT PT STATES :NAH THAT STUFF DON'T WORK ON MY SYSTEM ANYMORE I CAN'T TAKE IT, RN INFORMED PT HE COULD TRY AND SEE IF THE MEDICATIONS HELPS AND HE CAN GET SOME REST THEN TALK TO THE DRKatheryn IN THE MORNING. PT CONTINUES TO DECLINE DEMANDING HE BE LET OUT OF THE FACILITY AT ONCE. SUPPORT VOICED.
--- NOTE | 2023-02-27 04:09 | PC.NURSE ---
CONTINUES TO SIT ON BENCH BY NURSES STATION DEMANDING TO LEAVE. PT IS DELUSIONAL THREATENS STAFF AND REFUSES TO GO TO ROOM OR DAY ROOM.
--- NOTE | 2023-02-27 05:02 | PC.NURSE ---
DR. LEIJA IN [place]. NOTIFIED OF PT BEHAVIORS AND PT NOT SLEEPING. NO NEW ORDERS WERE RECEIVED. IS CONSIDERING A LONG ACTING INJECTABLE.
--- NOTE | 2023-02-27 05:51 | PC.NURSE ---
PT HAS BEEN ON BENCH NEAR NURSES STATION ALL SHIFT SINCE 190 LAST NIGHT. PT HAS NOT SLEPT AND HAS REFUSED ALL PHARMACEUTICAL INTERVENTIONS. PT HAS BEEN GIVEN MULTIPLE CHOICES AND VERBAL REDIRECTION WITHOUT ANY RESOLVE. PT CONTINUES TO MAKE THREATS TO STAFF IF IS NOT ALLOWED TO LEAVE THIS MORNING. PT HAS BEEN EDUCATED THAT HE WILL NOT BE DISCHARGING. ALL QUESTIONS ANSWERED AND SUPPORT VOICED.
[2023-02-27 06:00] VITALS: BP 126/70; PULSE 73; RESP 20; TEMP 36.6; O2SAT 97
--- NOTE | 2023-02-27 08:26 | PC.NURSE ---
Resting in bed this morning. He says he slept poorly last night, which coinsides with the report shift supervisor rn gave. Patient denies avh and si/hi. When asked to rate his depression and anxiety he responded that he feels rough and that they are up there. He denies any exacerbating factors.
[2023-02-27] MEDS: nicotine 2 mg Gum BUCCAL (14:19)
--- NOTE | 2023-02-27 15:55 | PC.NURSE ---
Patient repeatedly asking if he is going to be released today despite being told he is not multiple times. Patient then ran into the door near the vestibule to try to get it to open and when it did not he began saying staff was holding him hostage. After that, he walked to the door at the end of the akers that leads to the [facility] and attempted multiple times to open that door. Security, Ian, was already present and nursing staff were able to redirect patient. He is now on the phone and is saying, this is like a sentence man. Why won't you come and get me? When someone already has problems because of certain situations it's laura like putting someone in a sentence.
--- NOTE | 2023-02-27 19:23 | W.PM.NPUPNS ---
Subjective NPU Subjective: Patient is a 22-year-old male with schizophrenia with a rule out of schizoaffective disorder. The patient remained confused on the unit. the patient had made attempts to call 911 stating that he was being kidnapped. He had made attempts to leave the hospital and required addition as needed medications as he had become increasingly agitated on the unit. A code 10 was called and the patient had refused his Latuda initially. He continued to appear confused and was unable to state where he was today on interview. He had refused his Latuda yesterday. The patient had limited oral intake as he had appeared somewhat suspicious about his food being poisoned. Mental Status Exam MSE Comments: This is a morbidly obese white male who appeared his stated age with poor eye contact and extremely poor hygiene. There was no evidence of any abnormal involuntary motor movements tics or tremors appreciated. There was mild psychomotor retardation. He was minimally cooperative with exam in mild distress. His speech was monotone in quality with significant paucity of speech and continued increase in speech latency with normal volume. His mood was not endorsed. His affect was blunted . His thought process appeared superficial but linear. His thought content showed no evidence of homicidal or suicidal ideation. He did appear to be responding to internal stimuli. There was overt paranoia. There was significant evidence of confusion with recent and remote memory being impaired. His insight is impaired. His judgment is poor. His impulse control appeared limited. He was alert and oriented to person only. Vitals/I&O/Wt Last Vital Signs Temp 97.8 F 02/27/23 06:00 Pulse 73 02/27/23 06:00 Resp 20 H 02/27/23 06:00 BP 126/70 02/27/23 06:00 Pulse Ox 97 02/27/23 06:00 O2 Del Method Room Air 02/27/23 06:00 A&P Assessment and plan (1) Schizophrenia: (2) Schizoaffective disorder: Plan 22-year-old male with a history of psychosis likely schizophrenia or schizoaffective disorder currently not taking his medications and actively psychotic. 1. Encourage individual, group and milieu therapy. 2. Recommend sober living treatment at the highest level of care to which the patient is willing to commit. 3. Continue q-15 minute checks for safety.? 4.?Continue latuda to 80 mg. Patient not taking medications and may require forced medications. Involuntary Hold Information 96 Hour Hold: 96 Hour Involuntary Admission: No Attestations NPU Medical Necessity Statement*: Inpatient hospitalization is medically necessary and deemed to be the clinically appropriate intervention at this time. The patient will be started on medications and medications will be titrated as indicated. The patient's likely length of stay is 10-14 days. Coding Level of Care Code Acute Code for [facility] Fwd Diagnoses Schizophrenia F20.9 Schizoaffective disorder F25.9
[2023-02-28 05:56] VITALS: RESP 18
--- NOTE | 2023-02-28 08:54 | PC.NURSE ---
patient upset, stating that he is wanting to be let out. Patient called 911 so staff shut off phone. patient beat phone against wall a few times. Patient then slammed himself against the door. Security called. Attempts to redirect were not beneficial to situation. Security is doing well at redirection
--- NOTE | 2023-02-28 08:54 | PC.NURSE ---
patient stated to security that he knows the door is invinsible because he made it. Patient states that he made it for punching
[2023-02-28] MEDS: nicotine 2 mg Gum BUCCAL (08:56)
[2023-02-28] MEDS: haloperidol inj 5 mg/mL INJ 1 mL IM (09:40)
[2023-02-28] MEDS: diphenhydrAMINE 50 mg/mL SDV 1mL IM (09:40)
[2023-02-28] MEDS: LORazepam 2 mg/mL INJ 1 mL IM (09:40)
--- NOTE | 2023-02-28 09:43 | PC.NURSE ---
Patient began banging phone against wall. Patient then started ramming the door. Security and Code 10 called. Attempts to stop patient were not successful. Attempts to redirect were not successful. Dr. Covington ordered B52 IM and restraints. This nurse went to pull meds as staff had to physically transfer patient to restraints room. Nate came quickly. Attempts to de-esculate were not successful. When this nurse attempted to administer shots, patient began flalling, attempting to get out of restraints. Patient was able to escape the leg restrains. Staff present: warehouse trainer Judith Grewal, Dakota Watson, Kush Villanueva, Stephan Lanier, Nate Langston.
--- NOTE | 2023-02-28 10:35 | W.PM.BREST ---
Face to Face: Restrn/Seclusion Events leading up to initiation: Demonstrating self-destructive behavior (cutting, hitting velasco etc.) Evaluation of patient's immediate situation: Alert and oriented and Signs of psychological distress Patient reaction since intervention applied: De-escalation/no displays of violent/destructive behavior Recent labs reviewed: No Review of medications: Yes Patient's current medical/behavioral condition: No new concerns since last ROS Need for restraint or seclusion is: No longer present Attending notified: Attending completed assessment
--- NOTE | 2023-02-28 11:28 | PC.NURSE ---
Dr. Covington performed an evaluation on patient at 1040. Security and pressing department supervisor were present. Patient cooperative.
--- NOTE | 2023-02-28 11:28 | PC.NURSE ---
Patient released from restrains/seclusion at 1050 and then lead to his room
--- NOTE | 2023-02-28 19:27 | W.PM.NPUPNS ---
Subjective NPU Subjective: Patient is a 22-year-old male with schizophrenia with a rule out of schizoaffective disorder. the patient had required restraint and seclusion today as he had attempted to leave the hospital and break the door on the unit. Patient had continued to report that it was too late for Latuda to work. He had stated that he wished to go home to live with his grandmother. Patient had been informed that the patient's family had wanted the patient to get treatment the patient was unable to provide any information regarding his current whereabouts and how he would be able to get home. He had defecated on himself and had been unable to manage his basic hygiene including wiping his bottom after defecating in the toilet. He had continued to report that he was distracted by the voices in his head. He reported that he did not wish to take Latuda any further. He had not endorsed a history of a trial on Abilify and stated that he would consider taking this medication if it would shorten his hospital stay. Mental Status Exam MSE Comments: This is a morbidly obese white male who appeared his stated age with poor eye contact and extremely poor hygiene. There was no evidence of any abnormal involuntary motor movements tics or tremors appreciated. There was continued psychomotor slowing. He was minimally cooperative with exam in mild distress. His speech was monotone in quality with significant paucity of speech and continued increase in speech latency with normal volume. His mood was not endorsed. His affect was blunted . His thought process appeared superficial but linear. His thought content showed no evidence of homicidal or suicidal ideation. He did appear to be responding to internal stimuli and endorsed hearing multiple voices. There was overt paranoia regarding food being poisoned. There was significant evidence of confusion with recent and remote memory being impaired. His insight is impaired. His judgment is poor. His impulse control appeared limited. He was alert and oriented to person only. Vitals/I&O/Wt Last Vital Signs Temp 97.8 F 02/27/23 06:00 Pulse 73 02/27/23 06:00 Resp 18 02/28/23 05:56 BP 126/70 02/27/23 06:00 Pulse Ox 97 02/27/23 06:00 O2 Del Method Room Air 02/27/23 06:00 A&P Assessment and plan (1) Schizophrenia: (2) Schizoaffective disorder: Plan 22-year-old male with a history of psychosis likely schizophrenia or schizoaffective disorder currently not taking his medications and actively psychotic. 1. Encourage individual, group and milieu therapy. 2. Recommend sober living treatment at the highest level of care to which the patient is willing to commit. 3. Continue q-15 minute checks for safety.? 4.?Discontinue latuda and attempt trial of abilify 10mg today; if patient continues to refuse, he will require forced medications through extended involuntary stay. Involuntary Hold Information 96 Hour Hold: 96 Hour Involuntary Admission: No Attestations NPU Medical Necessity Statement*: Inpatient hospitalization is medically necessary and deemed to be the clinically appropriate intervention at this time. The patient will be started on medications and medications will be titrated as indicated. The patient's likely length of stay is 10-14 days. Coding Level of Care Code Acute Code for [facility] Diagnoses Schizophrenia F20.9 Schizoaffective disorder F25.9
[2023-02-28] MEDS: ARIPiprazole 10 mg Tablet PO (19:56)
[2023-02-28 21:04] VITALS: RESP 18
[2023-03-01 06:00] VITALS: RESP 16
[2023-03-01] MEDS: nicotine 2 mg Gum BUCCAL ×3 (06:38→18:09)
--- NOTE | 2023-03-01 13:52 | W.PM.NPUPNS ---
Subjective NPU Subjective: Patient is a 22-year-old male with schizophrenia with a rule out of schizoaffective disorder. No restraints or seclusions, Patient refused his abilify and remains psychotic and barely redirectable. He refused his Abilify today. He continued to appear extremely guarded and suspicious about taking medications. He had repeatedly attempted to call family members and continued to have evidence of extremely poor self-care. Mental Status Exam MSE Comments: This is a morbidly obese white male who appeared his stated age with poor eye contact and extremely poor hygiene. There was no evidence of any abnormal involuntary motor movements tics or tremors appreciated. There was continued psychomotor slowing. He was minimally cooperative with exam in mild distress. His speech was monotone in quality with significant paucity of speech and continued increase in speech latency with normal volume. His mood was described as okay. His affect was blunted . His thought process appeared superficial but linear. His thought content showed no evidence of homicidal or suicidal ideation. He did appear to be responding to internal stimuli and endorsed hearing multiple voices. There was overt paranoia regarding food contamination. His recent and remote memory were impaired. His insight is impaired. His judgment is poor. His impulse control appeared limited. He was alert and oriented to person only. Vitals/I&O/Wt Last Vital Signs Temp 97.8 F 02/27/23 06:00 Pulse 73 02/27/23 06:00 Resp 16 03/01/23 06:00 BP 126/70 02/27/23 06:00 Pulse Ox 97 02/27/23 06:00 O2 Del Method Room Air 02/27/23 06:00 A&P Assessment and plan (1) Schizophrenia: (2) Schizoaffective disorder: Plan 22-year-old male with a history of psychosis likely schizophrenia or schizoaffective disorder currently not taking his medications and actively psychotic. 1. Encourage individual, group and milieu therapy. 2. Recommend sober living treatment at the highest level of care to which the patient is willing to commit. 3. Continue q-15 minute checks for safety.? 4.?Patient refusing any psychotropics and will likely require forced medications as patient is unlikely to improve without antipsychotic medications. Involuntary Hold Information 96 Hour Hold: 96 Hour Involuntary Admission: No Attestations NPU Medical Necessity Statement*: Inpatient hospitalization is medically necessary and deemed to be the clinically appropriate intervention at this time. The patient will be started on medications and medications will be titrated as indicated. The patient's likely length of stay is 10-14 days. Coding Level of Care Code Acute Code for g Fwd Diagnoses Schizophrenia F20.9 Schizoaffective disorder F25.9
[2023-03-01 14:00] VITALS: BP 136/83; PULSE 103; RESP 15; TEMP 36.6; O2SAT 95
[2023-03-01 19:51] VITALS: BP 155/102; PULSE 85; RESP 18; TEMP 36.3; O2SAT 96
[2023-03-02 06:00] VITALS: BP 138/84; PULSE 69; RESP 16; O2SAT 97
--- NOTE | 2023-03-02 09:33 | PC.NURSE ---
PT DENIES SI/HI AND AVH AT THIS TIME. PT STATES MY HEAD IS MESSED UP. THIS RN SUGGESTED PT TAKE HIS AM MEDICATION, PT REFUSED STATING THAT WON'T HELP. ATTEMPTED THREE MORE TIMES FOR PT TO TAKE MEDICATIONS BUT PT DECLINES. DENIES PAIN. PT HAS A FLAT AFFECT AND IS EVASIVE WITH QUESTIONS. RATES ANXIETY 0/10 AND DEPRESSION 6/10. ALL QUESTIONS ANSWERED AND SUPPORT VOICED.
[2023-03-02] MEDS: nicotine 2 mg Gum BUCCAL ×3 (09:35→21:21)
[2023-03-02] MEDS: nicotine 4 mg lozenge MUCOUS MEM ×2 (16:23→19:43)
--- NOTE | 2023-03-02 17:51 | W.PM.NPUPNS ---
Subjective NPU Subjective: Patient is a 22-year-old male with schizophrenia with a rule out of schizoaffective disorder. No restraints or seclusions noted today. He continued to refuse any medications. He continued to appear unwilling to take medication with worries about being poisoned. He reported that it was too late. He was redirectable but not engaged at all on the milieu staying in his bed all day. Mental Status Exam MSE Comments: This is a morbidly obese white male who appeared his stated age with poor eye contact and extremely poor hygiene. There was no evidence of any abnormal involuntary motor movements tics or tremors appreciated. There was continued psychomotor slowing. He was minimally cooperative with exam in mild distress. His speech was monotone in quality with significant paucity of speech and continued increase in speech latency with normal volume. His mood was not endorsed. His affect was blunted. His thought process appeared superficial but linear. His thought content showed no evidence of homicidal or suicidal ideation. He did appear to be responding to internal stimuli. There was overt paranoia regarding food contamination. His recent and remote memory were impaired. His insight is impaired. His judgment is poor. His impulse control appeared limited. He was alert and oriented to person only. Vitals/I&O/Wt Last Vital Signs Temp 97.3 F L 03/01/23 19:51 Pulse 69 03/02/23 06:00 Resp 16 03/02/23 06:00 BP 138/84 03/02/23 06:00 Pulse Ox 97 03/02/23 06:00 O2 Del Method Room Air 03/02/23 06:00 Weight last 48 hrs Weight 183.251 kg Weight 183.251 kg A&P Assessment and plan (1) Schizophrenia: (2) Schizoaffective disorder: Plan 22-year-old male with a history of psychosis likely schizophrenia or schizoaffective disorder currently not taking his medications and actively psychotic. 1. Encourage individual, group and milieu therapy. 2. Recommend sober living treatment at the highest level of care to which the patient is willing to commit. 3. Continue q-15 minute checks for safety.? 4.?Patient refusing any psychotropics and will likely require forced medications as patient is unlikely to improve without antipsychotic medications. Involuntary Hold Information 96 Hour Hold: 96 Hour Involuntary Admission: No Attestations NPU Medical Necessity Statement*: Inpatient hospitalization is medically necessary and deemed to be the clinically appropriate intervention at this time. The patient will be started on medications and medications will be titrated as indicated. The patient's likely length of stay is 10-14 days. Coding Level of Care Code Acute Code for g Fwd Diagnoses Schizophrenia F20.9 Schizoaffective disorder F25.9
--- NOTE | 2023-03-02 19:36 | PC.NURSE ---
pt stated no i don't see what's point. respiration rate 18.
[2023-03-03 06:00] VITALS: BP 147/99; PULSE 83; RESP 17; O2SAT 97
[2023-03-03] MEDS: nicotine 2 mg Gum BUCCAL ×4 (06:21→20:54)
--- NOTE | 2023-03-03 09:05 | PC.NURSE ---
PATIENT SAID HE WOULD TAKE HIS ABILIFY MEDS. THEN AFTER THIS NURSE REMOVED THEM FROM THE PACKAGE, THE PATIENT SAID HE DIDN'T WANT THEM, THAT THEY WOULDN'T HELP. PATIENT STATED, MY HEAD'S NOT RIGHT . MULTIPLE ATTEMPTS FROM THIS NURSE WERE UNSUCCESSFUL.
[2023-03-03 14:00] VITALS: BP 158/102; PULSE 90; RESP 18; O2SAT 96
--- NOTE | 2023-03-03 15:48 | P.NPUPN_ITS ---
Subjective NPU Subjective: Patient is a 22-year-old male with schizophrenia with a rule out of schizoaffective disorder. No restraints or seclusions noted today. The patient refuses to take any medications. He had spent most of the afternoon and night lying in his bed. He was uncooperative and refused to respond to prompting to engage in self-care. He reported concern about taking the medications stating that it was not right, it was too late. Patient remains somewhat confused and minimally interactive with other peers. Mental Status Exam MSE Comments: This is a morbidly obese white male who appeared his stated age with poor eye contact and extremely poor hygiene. There was no evidence of any abnormal involuntary motor movements tics or tremors appreciated. There was continued psychomotor slowing. He was noncooperative with exam in mild distress. His speech was monotone in quality with significant paucity of speech and continued increase in speech latency with normal volume. His mood was not endorsed. His affect was blunted. His thought process appeared superficial but linear. His thought content showed no evidence of homicidal or suicidal ideation. He did appear to be responding to internal stimuli. There was overt paranoia noted His recent and remote memory was impaired. His insight is impaired. His judgment is poor. His impulse control appeared limited. He was alert and oriented to person only. Vitals/I&O/Wt Last Vital Signs Temp 97.3 F L 03/01/23 19:51 Pulse 83 03/03/23 06:00 Resp 17 03/03/23 06:00 BP 147/99 03/03/23 06:00 Pulse Ox 97 03/03/23 06:00 O2 Del Method Room Air 03/03/23 06:00 Weight last 48 hrs Weight 183.251 kg Weight 183.251 kg A&P Assessment and plan (1) Schizophrenia: (2) Schizoaffective disorder: Plan 22-year-old male with a history of psychosis likely schizophrenia or schizoaffective disorder currently not taking his medications and actively psychotic. 1. Encourage individual, group and milieu therapy. 2. Recommend sober living treatment at the highest level of care to which the patient is willing to commit. 3. Continue q-15 minute checks for safety.? 4.?Patient refusing any psychotropics and will likely require forced medications as patient is unlikely to improve without antipsychotic medications. Court hearing scheduled tommorow. Involuntary Hold Information 96 Hour Hold: 96 Hour Involuntary Admission: No Attestations NPU Medical Necessity Statement*: Inpatient hospitalization is medically necessary and deemed to be the clinically appropriate intervention at this time. The patient will be started on medications and medications will be titrated as indicated. The patient's likely length of stay is 10-14 days. Coding Level of Care Code Acute Code for [facility] Fwd Diagnoses Schizophrenia F20.9 Schizoaffective disorder F25.9
[2023-03-03 19:35] VITALS: BP 162/107; PULSE 103; RESP 18; O2SAT 93
--- NOTE | 2023-03-03 20:21 | PC.NURSE ---
AT NURSES STATION. PT CONTINUES TO VOICE DELUSIONS. IS ABLE TO ANSWER ASSESSMENT QUESTIONS. HAS NO EYE CONTACT AND HITS HAND TO HIS LEFT LEG WHEN SPEAKING CONTINUALLY. DENIES SI/HI AND AVH AT THIS TIME. DENIES PAIN. RATES ANXIETY 0/10 AND DEPRESSION 4/10. REPEATS MULTIPLE TIMES I THINK THERES SOMETHING WRONG WITH MY HEAD. PT WAS OFFERED MEDIATIONS TO HELP HIM SLEEP AND DECREASE ANXIETY. PT STATES OH NO THAT STUFF DON'T WORK FOR ME. SUPPORT WAS VOICED.
--- NOTE | 2023-03-04 04:05 | PC.NURSE ---
PT UP TO NURSES STATION SITTING ON BENCH TALKING TO UNSEEN OTHERS AND DEMANDING HE BE DISCHARGED TODAY. PT IS OBSERVED BEING IMPULSIVE AND INTRUSIVE. APPEARS TO BE RESPONDING TO EXTERNAL STIMULI. OFFERED MEDICATIONS TO CALM SELF BUT PT DECLINES. VERBALLY REDIRECTED TO ROOM OR DAY ROOM DUE TO PT GETTING LOUD WHEN TALKING. PT DID EVENTUALLY GO TO DAY ROOM. PT TOOK OFF SHIRT AND WAS INSTRUCTED TO PUT IT BACK ON. SUPPORT VOICED.
--- NOTE | 2023-03-04 05:49 | PC.NURSE ---
PT CONTINUES TO SIT AT NURSES STATION BEING ARGUMENTATIVE WITH STAFF, DEMANDING THAT HE BE DISCHARGED SAYING THIS HAS TO GO THROUGH THE CHANNELS AND IT HASN'T THIS IS ILLEGAL IF YOU DON'T DISCHARGE ME NOW. PT HAS WOKE UP THREE PTS AND HAS BEEN REDIRECTED SERVAL TIMES TO GO TO HIS ROOM OR DAY ROOM. PT REFUSES AND CONTINUES TO ESCALATE TELLING STAFF YOUR GONNA HAVE TO MAKE ME. THEN PT LAUGHS. MULTIPLE PTS HAVE COME OUT OF ROOMS ASKING IF STAFF CAN TELL THE PT TO BE QUIET SO THEY CAN SLEEP. SECURITY CALLED SO NURSES CAN GIVE INJECTIONS. SECURITY ON UNIT AND ALSO GAVE THE PT MULTIPLE CHOICES TO GO TO ROOM OR DAY ROOM SO OTHERS COULD SLEEP. PT CONTINUED TO REFUSE TELLING STAFF AGAIN I GUESS YOUR GONNA HAVE TO MAKE ME CAUSE I'M NOT TAKING THE SHOTS CODE TEN WAS CALLED AT 0542, MULTIPLE STAFF RESPONDED. AFTER SPEAKING WITH PT FOR FIVE MINUTES PT AGREES TO GO TO ROOM IF THE NURSES WILL NOT GIVE HIS THE SHOTS. THIS RN AGREED IF PT WOULD GO TO ROOM UNTIL IT WAS TIME TO GET UP FOR COFFEE AND HE COULD BE QUIET THEN THIS RN WOULD NOT GIVE THE INJECTION. PT THEN WALKED TO ROOM ARGUING WITH STAFF REGARDING HIS HOLD. SUPPORT WAS VOICED.
[2023-03-04 06:00] VITALS: BP 155/114; PULSE 90; RESP 18; O2SAT 97
[2023-03-04] MEDS: nicotine 2 mg Gum BUCCAL ×3 (07:31→21:47)
[2023-03-04] MEDS: ARIPiprazole 10 mg Tablet 15 MG PO (08:22)
--- NOTE | 2023-03-04 09:41 | PC.NURSE ---
Pt refused to have this nurse listen to heart and lungs during morning assessment.
--- NOTE | 2023-03-04 10:31 | PC.NURSE ---
Pt just punched the wall near the nurses station and stated I'd like to crush one of your heads in !!
[2023-03-04 14:00] VITALS: BP 155/90; PULSE 124; RESP 18; TEMP 36.4; O2SAT 95
--- NOTE | 2023-03-04 14:16 | P.NPUPN_ITS ---
Subjective NPU Subjective: Patient presented today reporting that he is doing better since this morning. He had a near code 10 this morning secondary to agitation and aggression. He he reports not remembering what was upsetting him. He continues to at times not make sense per staff and direct observation. He reports a desire to go to the 21-day hold hearing today and plead his case to be discharged. We discussed our belief that he needs to stay and be restarted on long-acting injectables so that he is stable on his medication. Mental Status Exam MSE Comments: This is a morbidly obese white male who appeared his stated age with poor eye contact and extremely poor hygiene. There was no evidence of any abnormal involuntary motor movements tics or tremors appreciated. There was continued psychomotor slowing. He was noncooperative with exam in mild distress. His speech was monotone in quality with significant paucity of speech and continued increase in speech latency with normal volume. His mood was not endorsed. His affect was blunted. His thought process appeared superficial but linear. His thought content showed no evidence of homicidal or suicidal ideation. He did appear to be responding to internal stimuli. There was overt paranoia noted His recent and remote memory was impaired. His insight is impaired. His judgment is poor. His impulse control appeared limited. He was alert and oriented to person only. Vitals/I&O/Wt Last Vital Signs Temp 97.3 F L 03/01/23 19:51 Pulse 90 03/04/23 06:00 Resp 18 03/04/23 06:00 BP 155/114 03/04/23 06:00 Pulse Ox 97 03/04/23 06:00 O2 Del Method Room Air 03/04/23 06:00 A&P Assessment and plan (1) Schizophrenia: (2) Schizoaffective disorder: Plan 22-year-old male with a history of psychosis likely schizophrenia or schiz oaffective disorder currently not taking his medications and actively psychotic. 1. Encourage individual, group and milieu therapy. 2. Recommend sober living treatment at the highest level of care to which the patient is willing to commit. 3. Continue q-15 minute checks for safety.? 4.?Patient refusing any psychotropics and will likely require forced medications as patient is unlikely to improve without antipsychotic medications. Court hearing scheduled at 1500 today. We will consider long-acting injectable when return after some conversation with grandmother about past exposure and effective medication Involuntary Hold Information 96 Hour Hold: 96 Hour Involuntary Admission: No Attestations NPU Medical Necessity Statement*: Inpatient hospitalization is medically necessary and deemed to be the clinically appropriate intervention at this time. The patient will be started on medications and medications will be titrated as indicated. The patient's likely length of stay is 10-14 days. Could change with 21-day hold. Coding Level [facility] Sch[facility] F20.9 Schizoaffective disorder F25.9
--- NOTE | 2023-03-04 15:06 | PC.NURSE ---
1505 Pt is off the unit, escorted to Court by 2 officers of the law.
--- NOTE | 2023-03-04 15:46 | PC.NURSE ---
1536 Pt escorted back to the unit by officers of the law.
--- NOTE | 2023-03-04 15:49 | PC.NURSE ---
Pt has removed ID bracelet from his wrist. Encouraged by nursing staff to please keep it on.
[2023-03-04 20:00] VITALS: RESP 16
[2023-03-05 06:00] VITALS: RESP 18
[2023-03-05] MEDS: nicotine 2 mg Gum BUCCAL ×2 (08:29→18:30)
--- NOTE | 2023-03-05 09:08 | PC.NURSE ---
IN BED RESTING FOR ASSESSMENT. PT DENIES SI/HI AND AVH AT THIS TIME. DENIES PAIN. PT IS WITHDRAWN AT TIMES. RATES ANXIETY 11/10 AND DEPRESSION 11/10. PT WAS GIVEN AM MEDICATIONS BUT THEN LOOKED AT THEM AND DECLINED THEM. PT WAS ENCOURAGED TO TAKE MEDICATIONS BUT STATES, I TOOK IT YESTERDAY AND IT MESSED WITH MY HEAD, YOU ALL ARE TAKING MY STEM CELLS. I'M NOT GOING TO TAKE IT ANYMORE. PT THEN GOT ON PHONE AND BECAME AGITATED WHEN THIS RN ASKED IF IT WAS HIS GRANDMA AND TO HAVE HER CALL US. PT BECAME ARGUMENTATIVE SAYING, I'M NOT GOING TO HAVE HER CALL YOU, YOU JUIST WANT TO GET ME ALL MESSED UP ON MEDICINE AND I'M NOT TAKING IT. PT WAS REDIRECTED TO FINISH HIS PHONE CALL. PT DID COMPLETE CALL. THIS RN ATTEMPTED TO CALL GRANDMOTHER THAT IS ON HIS CONTACT LIST BUT THE CALL WENT STRAIGHT TO AN ADIMATED MESSAGE SAYING SHE IS NOT TAKING CALLS NOW. WILL UPDATE DR. LEIJA. ALL QUESTIONS ANSWERED AND SUPPORT VOICED.
--- NOTE | 2023-03-05 10:49 | PC.NURSE ---
CALLED MEDICAID TO VERIFY WHAT MEDICATION THEY HAVE BEEN PAYING FOR. MEDICAID SECURITY SPECIALIST STATES SHE CAN NOT FIND ANY POLICY ON THAT NUMBER. SHE THEN RAN PT NAME AND STILL COULD NOT FIND ANY MEDICAID POLICY ON THIS PT. THIS RN HAS TRIED TO CALL PTS GRANDMOTHER SEVERAL TIMES THIS AM TO VERIFY MEDICATIONS BUT GRANDMOTHERS PHONE HAS AUTOMATED MESSAGE THAT SHE IS NOT RECEIVING CALLS WILL TRY AGAIN LATER.
[2023-03-05 14:00] VITALS: RESP 20
--- NOTE | 2023-03-05 15:04 | PC.NURSE ---
pt refused vitals.
[2023-03-05] MEDS: paliperidone palmitate 234 mg Syringe IM (17:21)
[2023-03-05] MEDS: diphenhydrAMINE 50 mg/mL SDV 1mL IM (17:25)
[2023-03-05] MEDS: LORazepam 2 mg/mL INJ 1 mL IM (17:25)
--- NOTE | 2023-03-05 17:35 | W.PM.BREST ---
Face to Face: Restrn/Seclusion Events leading up to initiation: Verbalizing threat to self or others and Combative/Striking out at staff or others Evaluation of patient's immediate situation: Alert and oriented, Signs of physical distress and Signs of psychological distress Patient reaction since intervention applied: Continued attempts/displays harmful behavior Recent labs reviewed: Yes Review of medications: Yes Patient's current medical/behavioral condition: New concerns (describe) (Still expressing aggression and lashing out towards staff in physical restraint) Need for restraint or seclusion is: Continued (Moved to seclusion.) Attending notified: Attending completed assessment
--- NOTE | 2023-03-05 17:48 | W.PM.NPUPNS ---
Subjective NPU Subjective: Patient presented today reporting that he is not wanting to be on medication and does not feel it helps or that he needs it. We discussed him being on a 21-day hold and will be forced to take the medication if necessary. We identified his last effective medication regimen which was Invega Sustenna. We discussed a vision of him getting to Invega Trinza or Invega Hafyera allowing for 4 or 2 shots a year respectively. It is unclear if he appreciates these options and we discussed hoping that he gets better so that he will have better insight into these choices. Mental Status Exam MSE Comments: This is a morbidly obese white male who appeared his stated age with poor eye contact and extremely poor hygiene. There was no evidence of any abnormal involuntary motor movements tics or tremors appreciated. There was continued psychomotor slowing except for when he was given the injection and he had a extremely aggressive outburst. He was noncooperative with exam in mild distress which escalated to extreme distress. His speech was monotone in quality with significant paucity of speech and continued increase in speech latency with normal volume. His mood was not endorsed. His affect was blunted. His thought process appeared superficial but linear. His thought content showed no evidence of homicidal or suicidal ideation. He did appear to be responding to internal stimuli. There was overt paranoia noted His recent and remote memory was impaired. His insight is impaired. His judgment is poor. His impulse control appeared impaired. He was alert and oriented to person only. Vitals/I&O/Wt Last Vital Signs Temp 97.5 F L 03/04/23 14:00 Pulse 124 H 03/04/23 14:00 Resp 20 H 03/05/23 14:00 BP 155/90 03/04/23 14:00 Pulse Ox 95 03/04/23 14:00 O2 Del Method Room Air 03/04/23 06:00 A&P Assessment and plan (1) Schizophrenia: (2) Schizoaffective disorder: Plan 22-year-old male with a history of psychosis likely schizophrenia or schizoaffective disorder currently not taking his medications and actively psychotic. 1. Encourage individual, group and milieu therapy. 2. Recommend sober living treatment at the highest level of care to which the patient is willing to commit. 3. Continue q-15 minute checks for safety.? 4.?Patient refusing any psychotropics and will likely require forced medications as patient is unlikely to improve without antipsychotic medications. Patient placed on 21-day hold 03/04/2023. After researching and calling insurance companies and old providers etc. we were able to determine his last successful treatment was Invega Sustenna and his last injection was Invega Sustenna 156 mg IM in November 2022. Patient given Invega Sustenna 234 mg IM to the deltoid loading dose which led to a code 10 and him ending up in seclusion. Next loading dose of Invega 156 mg IM to the deltoid 03/11/2023. Involuntary Hold Information 96 Hour Hold: 96 Hour Involuntary Admission: No Attestations NPU Medical Necessity Statement*: Inpatient hospitalization is medically necessary and deemed to be the clinically appropriate intervention at this time. The patient will be started on medications and medications will be titrated as indicated. The patient's likely length of stay is 10-14 days. Could change with 21-day hold. Coding Level of Care Code Acute Code for [facility] Fwd Diagnoses Schizophrenia F20.9 Schizoaffective disorder F25.9
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
[2023-03-05 20:24] VITALS: BP 125/76; PULSE 120; RESP 18; O2SAT 96
[2023-03-06 06:00] VITALS: BP 145/87; PULSE 82; RESP 18; O2SAT 96
--- NOTE | 2023-03-06 10:56 | W.PM.NPUPNS ---
Subjective NPU Subjective: Patient presented today reporting that he is doing better than yesterday. He did not have any responses as per usual. We discussed the fact that we are hopeful that his Invega will continue to get to a therapeutic level and he will have better and more clarity of thought and being able to collaborate with the treatment team on what he wants to do next. He did not report any problems with the medication or injection. He is sleeping well and eating appropriately per staff. Mental Status Exam MSE Comments: This is a morbidly obese white male who appeared his stated age with poor eye contact and extremely poor hygiene. There was no evidence of any abnormal involuntary motor movements tics or tremors appreciated. There was continued psychomotor slowing. He was noncooperative with exam in mild distress. His speech was monotone in quality with significant paucity of speech and continued increase in speech latency with normal volume. His mood was not endorsed. His affect was blunted. His thought process appeared superficial but linear. His thought content showed no evidence of homicidal or suicidal ideation. He did appear to be responding to internal stimuli. There was overt paranoia noted His recent and remote memory was impaired. His insight is impaired. His judgment is poor. His impulse control appeared impaired. He was alert and oriented to person only. Vitals/I&O/Wt Last Vital Signs Temp 97.5 F L 03/04/23 14:00 Pulse 82 03/06/23 06:00 Resp 18 03/06/23 06:00 BP 145/87 03/06/23 06:00 Pulse Ox 96 03/06/23 06:00 O2 Del Method Room Air 03/06/23 06:00 A&P Assessment and plan (1) Schizophrenia: (2) Schizoaffective disorder: Plan 22-year-old male with a history of psychosis likely schizophrenia or schizoaffective disorder currently not taking his medications and actively psychotic. 1. Encourage individual, group and milieu therapy. 2. Recommend sober living treatment at the highest level of care to which the patient is willing to commit. 3. Continue q-15 minute checks for safety.? 4.?Patient refusing any psychotropics and will likely require forced medications as patient is unlikely to improve without antipsychotic medications. Patient placed on 21-day hold 03/04/2023. After researching and calling insurance companies and old providers etc. we were able to determine his last successful treatment was Ottoniel Mendoza and his last injection was Invega Sustenna 156 mg IM in November 2022. Patient given Invega Sustenna 234 mg IM to the deltoid loading dose 03/05/2023 which led to a code 10 and him ending up in seclusion. Next loading dose of Invega 156 mg IM to the deltoid 03/12/2023. Patient being offered oral Invega until 03/12/2023 with second dose. Involuntary Hold Information 96 Hour Hold: 96 Hour Involuntary Admission: No Attestations NPU Medical Necessity Statement*: Inpatient hospitalization is medically necessary and deemed to be the clinically appropriate intervention at this time. The patient will be started on medications and medications will be titrated as indicated. The patient's likely length of stay is 10-14 days. Could change with 21-day hold. Coding Level of Care Code Acute Code for [facility] Fwd Diagnoses Schizophrenia F20.9 Schizoaffective disorder F25.9
[2023-03-06 14:00] VITALS: BP 134/90; PULSE 124; RESP 18; TEMP 36.6; O2SAT 98
[2023-03-06] MEDS: nicotine 2 mg Gum BUCCAL ×3 (15:44→21:55)
[2023-03-06] MEDS: nicotine 4 mg lozenge MUCOUS MEM (20:20)
[2023-03-06 20:33] VITALS: BP 156/97; PULSE 94; RESP 20; TEMP 36.3; O2SAT 97
--- NOTE | 2023-03-06 21:34 | PC.NURSE ---
Patient behavior Patient was getting agitated on the phone. The phone was turned off. He stated if anyone put their hands on him they would know what would happen to him. He is demanding nicotine gum and it is not time yet. Security called and is present. Physical Laboratory Assistant notified.
[2023-03-07 06:00] VITALS: RESP 18
--- NOTE | 2023-03-07 07:12 | W.PM.NPUPNS ---
Subjective NPU Subjective: Patient presented today reporting that he is feeling better. He identified that he was having no specific side effects from the medication and continues to have limited response to conversation. No restraints or other difficulties reported by staff. He continues to be fairly isolative but is seen out in the day room occasionally. Mental Status Exam MSE Comments: This is a morbidly obese white male who appeared his stated age with poor eye contact and extremely poor hygiene. There was no evidence of any abnormal involuntary motor movements tics or tremors appreciated. There was continued psychomotor slowing. He was noncooperative with exam in mild distress. His speech was monotone in quality with significant paucity of speech and continued increase in speech latency with normal volume. His mood was not endorsed. His affect was blunted. His thought process appeared superficial but linear. His thought content showed no evidence of homicidal or suicidal ideation. He did appear to be responding to internal stimuli. There was overt paranoia noted His recent and remote memory was impaired. His insight is impaired. His judgment is poor. His impulse control appeared impaired. He was alert and oriented to person only. Vitals/I&O/Wt Last Vital Signs Temp 97.4 F L 03/06/23 20:33 Pulse 94 03/06/23 20:33 Resp 18 03/07/23 06:00 BP 156/97 03/06/23 20:33 Pulse Ox 97 03/06/23 20:33 O2 Del Method Room Air 03/06/23 20:33 A&P Assessment and plan (1) Schizophrenia: (2) Schizoaffective disorder: Plan 22-year-old male with a history of psychosis likely schizophrenia or schizoaffective disorder currently not taking his medications and actively psychotic. 1. Encourage individual, group and milieu therapy. 2. Recommend sober living treatment at the highest level of care to which the patient is willing to commit. 3. Continue q-15 minute checks for safety.? 4.?Patient refusing any psychotropics and will likely require forced medications as patient is unlikely to improve without antipsychotic medications. Patient placed on 21-day hold 03/04/2023. After researching and calling insurance companies and old providers etc. we were able to determine his last successful treatment was Invega Sustenna and his last injection was Invega Sustenna 156 mg IM in November 2022. Patient given Invega Sustenna 234 mg IM to the deltoid loading dose 03/05/2023 which led to a code 10 and him ending up in seclusion. Next loading dose of Invega 156 mg IM to the deltoid 03/12/2023. Patient being offered oral Invega until 03/12/2023 with second dose. Involuntary Hold Information 96 Hour Hold: 96 Hour Involuntary Admission: No Attestations NPU Medical Necessity Statement*: Inpatient hospitalization is medically necessary and deemed to be the clinically appropriate intervention at this time. The patient will be started on medications and medications will be titrated as indicated. The patient's likely length of stay is 10-14 days. Could change with 21-day hold. Coding Level of Care Code Acute Code for [facility] Fwd Diagnoses Schizophrenia F20.9 Schizoaffective disorder F25.9
[2023-03-07] MEDS: nicotine 2 mg Gum BUCCAL ×5 (11:12→22:49)
[2023-03-07 14:00] VITALS: BP 154/99; PULSE 95; RESP 18; O2SAT 98
[2023-03-07 20:15] VITALS: BP 163/97; PULSE 96; RESP 20; TEMP 36.3; O2SAT 95
[2023-03-07] MEDS: nicotine 4 mg lozenge MUCOUS MEM (20:59)
[2023-03-08] MEDS: nicotine 2 mg Gum BUCCAL ×5 (00:48→16:19)
[2023-03-08 06:00] VITALS: RESP 18
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
--- NOTE | 2023-03-08 08:21 | PC.NURSE ---
Patient sitting near phone by nurses' station. He denies hi and avh. He does endorse si with no plan and states, I'm just feeling frustrated. I'm just ready to go home. The is system is just wicked. It traps you every time.
--- NOTE | 2023-03-08 10:05 | PC.NURSE ---
Patient refused medication this morning. This RN explained the benefits of taking the medication, but patient replied, ya..[facility]...maybe later. Patient walked off with clear intentions of not taking the medication as he rolled his eyes.
[2023-03-08 14:00] VITALS: BP 156/97; PULSE 91; RESP 18; TEMP 36.4; O2SAT 98
[2023-03-09 06:00] VITALS: BP 149/97; PULSE 85; RESP 18; TEMP 36.6; O2SAT 97
[2023-03-09] MEDS: nicotine 2 mg Gum BUCCAL ×3 (06:49→23:36)
--- NOTE | 2023-03-09 07:08 | W.PM.NPUPNS ---
Subjective NPU Subjective: Patient presented today reporting that he is feeling a little better. He reports that his sleep is not as good as it used to be but could not elaborate on that. Patient as verbal as he has been with this insurance underwriter sales and we discussed the possibility that this roberts the Invega Sustenna starting to have some clinical availability. His answers were mostly yes and no and continued to lack spontaneity but he was more consistent in giving responses to questions asked and we discussed this is possibly being a sign of improvement. He was encouraged to take the oral Invega but ultimately we identified that the next injection is days away and the oral medication will be less necessary or unnecessary after that. He denied any specific side effects to the medication. Mental Status Exam MSE Comments: This is a morbidly obese white male who appeared his stated age with poor eye contact and extremely poor hygiene. There was no evidence of any abnormal involuntary motor movements tics or tremors appreciated. There was continued psychomotor slowing. He was noncooperative with exam in mild distress. Speech continued to lack spontaneity and be monotone in quality with significant paucity of speech and continued increase in speech latency with normal volume. His mood was not endorsed. His affect was blunted. His thought process appeared superficial but linear. His thought content showed no evidence of homicidal or suicidal ideation. He did appear to be responding to internal stimuli. There was overt paranoia noted His recent and remote memory was impaired. His insight is impaired. His judgment is poor. His impulse control appeared impaired. He was alert and oriented to person only. Vitals/I&O/Wt Last Vital Signs Temp 97.9 F 03/09/23 06:00 Pulse 85 03/09/23 06:00 Resp 18 03/09/23 06:00 BP 149/97 03/09/23 06:00 Pulse Ox 97 03/09/23 06:00 O2 Del Method Room Air 03/09/23 06:00 Weight last 48 hrs Weight 201.758 kg A&P Assessment and plan (1) Schizophrenia: (2) Schizoaffective disorder: Plan 22-year-old male with a history of psychosis likely schizophrenia or schizoaffective disorder currently not taking his medications and actively psychotic. 1. Encourage individual, group and milieu therapy. 2. Recommend sober living treatment at the highest level of care to which the patient is willing to commit. 3. Continue q-15 minute checks for safety.? 4.?Patient refusing any psychotropics and will likely require forced medications as patient is unlikely to improve without antipsychotic medications. Patient placed on 21-day hold 03/04/2023. After researching and calling insurance companies and old providers etc. we were able to determine his last successful treatment was Invega Sustenna and his last injection was Invega Sustenna 156 mg IM in November 2022. Patient given Invega Sustenna 234 mg IM to the deltoid loading dose 03/05/2023 which led to a code 10 and him ending up in seclusion. Next loading dose of Invega 156 mg IM to the deltoid 03/12/2023. Patient being offered oral Invega until 03/12/2023 with second dose. Involuntary Hold Information 96 Hour Hold: 96 Hour Involuntary Admission: No Attestations NPU Medical Necessity Statement*: Inpatient hospitalization is medically necessary and deemed to be the clinically appropriate intervention at this time. The patient will be started on medications and medications will be titrated as indicated. The patient's likely length of stay is 10-14 days. Could change with 21-day hold. Coding Level of Care Code Acute Code for [facility] Fwd Diagnoses Schizophrenia F20.9 Schizoaffective disorder F25.9
--- NOTE | 2023-03-09 09:01 | PC.NURSE ---
Denies si/hi and anxiety and depression. Patient endorses avh, but unable to elaborate much. When asked to elaborate he stated, I don't know. I have it all the time, like stuff normal people don't see. Like being scatterbrained. And scatterbrained is like when certain needs need to be met. During morning report night staff reported he only slept about half of the night. Patient confirmed this and when asked if that was how he normally slept at home he said, ya. It's a weird process. Patient also refused invega po this morning. This RN explained the benefits of the medication, but he continued to refuse because he says the medication will make him brain .
[2023-03-09 14:00] VITALS: BP 108/73; PULSE 81; RESP 20; TEMP 36.4; O2SAT 96
[2023-03-09 19:45] VITALS: RESP 18
[2023-03-10 06:00] VITALS: RESP 18
--- NOTE | 2023-03-10 09:03 | PC.NURSE ---
REFUSED SCHEDULED INVEGA
[2023-03-10] MEDS: nicotine 2 mg Gum BUCCAL ×2 (11:17→17:59)
[2023-03-10] MEDS: paliperidone palmitate 156 mg Syringe IM (12:13)
--- NOTE | 2023-03-10 12:21 | PC.NURSE ---
PT RECEIVED INVEGA 156MG INJECTION TO THE LEFT DELTOID.
--- NOTE | 2023-03-10 12:27 | W.PM.NPUPNS ---
Subjective NPU Subjective: Patient presented today reporting he was doing okay except for he needed to discharge. We discussed that he was in the window for receiving his second loading dose of the medication and he was resistant reporting that it would block him from being able to serve God. We discussed the purpose of the medication and the role that we will play in him being able to get home and return home. We assembled staff in preparation for a repeat COVID 10 and after a lengthy discussion he allow the injection to be administered. Otherwise he denied any other issues. Mental Status Exam MSE Comments: This is a morbidly obese white male who appeared his stated age with poor eye contact and extremely poor hygiene. There was no evidence of any abnormal involuntary motor movements tics or tremors appreciated. There was continued psychomotor slowing. He was noncooperative with exam in mild distress. Speech continued to lack spontaneity and be monotone in quality with significant paucity of speech and continued increase in speech latency with normal volume. His mood was not endorsed. His affect was blunted. His thought process appeared superficial but linear. His thought content showed no evidence of homicidal or suicidal ideation. He did appear to be responding to internal stimuli. There was overt paranoia noted with some hyperreligious nature. His recent and remote memory was impaired. His insight is impaired. His judgment is poor. His impulse control appeared impaired. He was alert and oriented to person only. Vitals/I&O/Wt Last Vital Signs Temp 97.6 F 03/09/23 14:00 Pulse 81 03/09/23 14:00 Resp 18 03/10/23 06:00 BP 108/73 03/09/23 14:00 Pulse Ox 96 03/09/23 14:00 O2 Del Method Room Air 03/09/23 06:00 Weight last 48 hrs Weight 201.758 kg A&P Assessment and plan (1) Schizophrenia: (2) Schizoaffective disorder: Plan 22-year-old male with a history of psychosis likely schizophrenia or schizoaffective disorder currently not taking his medications and actively psychotic. 1. Encourage individual, group and milieu therapy. 2. Recommend sober living treatment at the highest level of care to which the patient is willing to commit. 3. Continue q-15 minute checks for safety.? 4.?Patient refusing any psychotropics and will likely require forced medications as patient is unlikely to improve without antipsychotic medications. Patient placed on 21-day hold 03/04/2023. After researching and calling insurance companies and old providers etc. we were able to determine his last successful treatment was Invega Sustenna and his last injection was Invega Sustenna 156 mg IM in November 2022. Patient given Invega Sustenna 234 mg IM to the deltoid loading dose 03/05/2023 which led to a code 10 and him ending up in seclusion. Next loading dose of Invega 156 mg IM to the deltoid given today in the tolerable window for the second injection, 03/10/2023. He showed some improvement that after a long conversation he was able to allow the nurse to give him the injection willingly. Involuntary Hold Information 96 Hour Hold: 96 Hour Involuntary Admission: No Attestations NPU Medical Necessity Statement*: Inpatient hospitalization is medically necessary and deemed to be the clinically appropriate intervention at this time. The patient will be started on medications and medications will be titrated as indicated. The patient's likely length of stay is 10-14 days. Could change with 21-day hold. Coding Level of Care Code Acute Code for g Fwd Diagnoses Schizophrenia F20.9 Schizoaffective disorder F25.9
[2023-03-10 20:29] VITALS: BP 132/100; PULSE 104; RESP 20; O2SAT 96
[2023-03-11 06:00] VITALS: RESP 18
--- NOTE | 2023-03-11 13:13 | P.NPUPN_ITS ---
Subjective NPU Subjective: Patient presented today reporting that he is not sure how he is doing. Staff report slightly more spontaneity in his speech which is observed directly as well. No aggressive issues for many days now. We continue to encourage him to take medication as prescribed in hopes of expediting his recovery. He denied any specific side effects to the medication. Mental Status Exam MSE Comments: This is a morbidly obese white male who appeared his stated age with poor eye contact and extremely poor hygiene. There was no evidence of any abnormal involuntary motor movements tics or tremors appreciated. There was continued psychomotor slowing. He was noncooperative with exam in mild distress. Speech continued to lack spontaneity and be monotone in quality with significant paucity of speech and continued increase in speech latency with normal volume. His mood endorsed as okay I guess I do not know. His affect was blunted. His thought process appeared superficial but linear. His thought content showed no evidence of homicidal or suicidal ideation. He did appear to be responding to internal stimuli. There was overt paranoia noted with some hyperreligious nature. His recent and remote memory was impaired. His insight is impaired. His judgment is poor. His impulse control appeared impaired. He was alert and oriented to person and place. Vitals/I&O/Wt Last Vital Signs Temp 97.6 F 03/09/23 14:00 Pulse 104 H 03/10/23 20:29 Resp 18 03/11/23 06:00 BP 132/100 03/10/23 20:29 Pulse Ox 96 03/10/23 20:29 O2 Del Method Room Air 03/10/23 20:29 A&P Assessment and plan (1) Schizophrenia: (2) Schizoaffective disorder: Plan 22-year-old male with a history of psychosis likely schizophrenia or schizoaffective disorder currently not taking his medications and actively psychotic. 1. Encourage individual, group and milieu therapy. 2. Recommend sober living treatment at the highest level of care to which the patient is willing to commit. 3. Continue q-15 minute checks for safety.? 4.?Patient refusing any psychotropics and will likely require forced medications as patient is unlikely to improve without antipsychotic medications. Patient placed on 21-day hold 03/04/2023. After researching and calling insurance companies and old providers etc. we were able to determine his last successful treatment was Invega Sustenna and his last injection was Invega Sustenna 156 mg IM in November 2022. Patient given Invega Sustenna 234 mg IM to the deltoid loading dose 03/05/2023 which led to a code 10 and him ending up in seclusion. Next loading dose of Invega 156 mg IM to the deltoid given today in the tolerable window for the second injection, 03/10/2023. He showed some improvement that after a long conversation he was able to allow the nurse to give him the injection willingly. Next injection 04/09/2023. Involuntary Hold Information 96 Hour Hold: 96 Hour Involuntary Admission: No Attestations NPU Medical Necessity Statement*: Inpatient hospitalization is medically necessary and deemed to be the clinically appropriate intervention at this time. The patient will be started on medications and medications will be titrated as indicated. The patient's likely length of stay is 10-14 days. Could change with 21-day hold. Coding Level of Care Code Acute Code for [facility] Fwd Diagnoses Schizophrenia F20.9 Schizoaffective disorder F25.9
[2023-03-11 14:00] VITALS: BP 124/79; PULSE 65; RESP 20; TEMP 36.6; O2SAT 98
[2023-03-11] MEDS: nicotine 2 mg Gum BUCCAL (18:53)
[2023-03-11 20:24] VITALS: BP 166/117; PULSE 101; RESP 20; TEMP 36.4; O2SAT 98
[2023-03-12] MEDS: nicotine 2 mg Gum BUCCAL ×6 (00:53→18:35)
[2023-03-12 06:00] VITALS: RESP 18
--- NOTE | 2023-03-12 11:39 | W.PM.NPUPNS ---
Subjective NPU Subjective: Patient presented today reporting that he is doing okay. Conversations with his grandmother suggest that there were concerns about weight gain related to the medication. Unfortunately patient fairly sedentary and we discussed blaming the medication for the weight gain is challenging. We discussed possibly referring for some weight management. We discussed discontinuing oral dose given that he has gotten his second loading dose of Invega Sustenna. Mental Status Exam MSE Comments: This is a morbidly obese white male who appeared his stated age with poor eye contact and extremely poor hygiene. There was no evidence of any abnormal involuntary motor movements tics or tremors appreciated. There was continued psychomotor slowing. He was noncooperative with exam in mild distress. Speech continued to lack spontaneity and be monotone in quality with significant paucity of speech and continued increase in speech latency with normal volume. His mood endorsed as okay I guess I do not know. His affect was blunted. His thought process appeared superficial but linear. His thought content showed no evidence of homicidal or suicidal ideation. He did appear to be responding to internal stimuli. There was overt paranoia noted with some hyperreligious nature. His recent and remote memory was impaired. His insight is impaired. His judgment is poor. His impulse control appeared impaired. He was alert and oriented to person and place. Vitals/I&O/Wt Last Vital Signs Temp 97.6 F 03/11/23 20:24 Pulse 101 H 03/11/23 20:24 Resp 18 03/12/23 06:00 BP 166/117 03/11/23 20:24 Pulse Ox 98 03/11/23 20:24 O2 Del Method Room Air 03/11/23 20:24 A&P Assessment and plan (1) Schizophrenia: (2) Schizoaffective disorder: Plan 22-year-old male with a history of psychosis likely schizophrenia or schizoaffective disorder currently not taking his medications and actively psychotic. 1. Encourage individual, group and milieu therapy. 2. Recommend sober living treatment at the highest level of care to which the patient is willing to commit. 3. Continue q-15 minute checks for safety.? 4.?Patient refusing any psychotropics and will likely require forced medications as patient is unlikely to improve without antipsychotic medications. Patient placed on 21-day hold 03/04/2023. After researching and calling insurance companies and old providers etc. we were able to determine his last successful treatment was Invega Sustenna and his last injection was Invega Sustenna 156 mg IM in November 2022. Patient given Invega Sustenna 234 mg IM to the deltoid loading dose 03/05/2023 which led to a code 10 and him ending up in seclusion. Next loading dose of Invega 156 mg IM to the deltoid given today in the tolerable window for the second injection, 03/10/2023. He showed some improvement that after a long conversation he was able to allow the nurse to give him the injection willingly. Next injection 04/09/2023. Involuntary Hold Information 96 Hour Hold: 96 Hour Involuntary Admission: No Attestations NPU Medical Necessity Statement*: Inpatient hospitalization is medically necessary and deemed to be the clinically appropriate intervention at this time. The patient will be started on medications and medications will be titrated as indicated. The patient's likely length of stay is 10-14 days. Could change with 21-day hold. Coding Level of Care Code Acute Code for [facility] Diagnoses Schizophrenia F20.9 Schizoaffective disorder F25.9
[2023-03-12 14:00] VITALS: BP 156/105; PULSE 108; RESP 20; TEMP 36.4; O2SAT 97
[2023-03-13] MEDS: nicotine 2 mg Gum BUCCAL ×4 (01:04→17:59)
--- NOTE | 2023-03-13 03:18 | PC.NURSE ---
Patient Behavior Patient started becoming agitated stating to the effect that he wanted out of here and that he was going to start hurting people and ready to fight. Security and house super here.
[2023-03-13 06:00] VITALS: RESP 17
--- NOTE | 2023-03-13 08:24 | W.PM.NPUPNS ---
Subjective NPU Subjective: Patient presents today continuing to be slightly more verbal but less spontaneous than 1 would expect. He did have an episode last night where he was agitated but he could not explain what happened last night. He continues to be more directable by staff and so they are attempting to get him to be more responsible for his hygiene and upkeep of his room. He continues to be resistant to the need for medication and there are concerns about his weight that are legitimate and we discussed trying to connect him to his provider for possible weight management services once he demonstrates more improvement. Mental Status Exam MSE Comments: This is a morbidly obese white male who appeared his stated age with poor eye contact and extremely poor hygiene. There was no evidence of any abnormal involuntary motor movements tics or tremors appreciated. There was continued psychomotor slowing. He was noncooperative with exam in mild distress. Speech continued to lack spontaneity and be monotone in quality with significant paucity of speech and continued increase in speech latency with normal volume. His mood endorsed as okay I guess I do not know. His affect was blunted. His thought process appeared superficial but linear. His thought content showed no evidence of homicidal or suicidal ideation. He did appear to be responding to internal stimuli. There was overt paranoia noted with some hyperreligious nature. His recent and remote memory was impaired. His insight is impaired. His judgment is poor. His impulse control appeared impaired. He was alert and oriented to person and place. Vitals/I&O/Wt Last Vital Signs Temp 97.6 F 03/12/23 14:00 Pulse 108 H 03/12/23 14:00 Resp 17 03/13/23 06:00 BP 156/105 03/12/23 14:00 Pulse Ox 97 03/12/23 14:00 O2 Del Method Room Air 03/11/23 20:24 A&P Assessment and plan (1) Schizophrenia: (2) Schizoaffective disorder: Plan 22-year-old male with a history of psychosis likely schizophrenia or schizoaffective disorder currently not taking his medications and actively psychotic. 1. Encourage individual, group and milieu therapy. 2. Recommend sober living treatment at the highest level of care to which the patient is willing to commit. 3. Continue q-15 minute checks for safety.? 4.?Patient refusing any psychotropics and will likely require forced medications as patient is unlikely to improve without antipsychotic medications. Patient placed on 21-day hold 03/04/2023. After researching and calling insurance companies and old providers etc. we were able to determine his last successful treatment was Invega Sustenna and his last injection was Invega Sustenna 156 mg IM in November 2022. Patient given Invega Sustenna 234 mg IM to the deltoid loading dose 03/05/2023 which led to a code 10 and him ending up in seclusion. Next loading dose of Invega 156 mg IM to the deltoid given today in the tolerable window for the second injection, 03/10/2023. He showed some improvement that after a long conversation he was able to allow the nurse to give him the injection willingly. Next injection 04/09/2023. Involuntary Hold Information 96 Hour Hold: 96 Hour Involuntary Admission: No Attestations NPU Medical Necessity Statement*: Inpatient hospitalization is medically necessary and deemed to be the clinically appropriate intervention at this time. The patient will be started on medications and medications will be titrated as indicated. The patient's likely length of stay is 10-14 days. Could change with 21-day hold. Coding Level of Care Code Acute Code for [facility] Fwd Diagnoses Schizophrenia F20.9 Schizoaffective disorder F25.9
[2023-03-13 14:00] VITALS: BP 146/98; PULSE 99; RESP 17; O2SAT 97
[2023-03-13 20:23] VITALS: RESP 18
[2023-03-13] MEDS: nicotine 2 mg Gum 4 MG BUCCAL (22:10)
[2023-03-14 06:00] VITALS: RESP 18
--- NOTE | 2023-03-14 07:40 | W.PM.NPUPNS ---
Subjective NPU Subjective: Patient presented today reporting that he was doing okay but wanting to get out of here soon as possible. We continue to discuss that taking his medication and then working on getting him back to full functioning was the goal. We discussed feeling there was slight improvement and awaiting the injection becoming fully available at a appropriate level. He denied any current side effects. Mental Status Exam MSE Comments: This is a morbidly obese white male who appeared his stated age with poor eye contact and extremely poor hygiene. There was no evidence of any abnormal involuntary motor movements tics or tremors appreciated. There was continued psychomotor slowing. He was noncooperative with exam in mild distress. Speech continued to lack spontaneity and be monotone in quality with significant paucity of speech and continued increase in speech latency with normal volume. His mood endorsed as okay I guess I do not know. His affect was blunted. His thought process appeared superficial but linear. His thought content showed no evidence of homicidal or suicidal ideation. He did appear to be responding to internal stimuli. There was overt paranoia noted with some hyperreligious nature. His recent and remote memory was impaired. His insight is impaired. His judgment is poor. His impulse control appeared impaired. He was alert and oriented to person and place. Vitals/I&O/Wt Last Vital Signs Temp 97.6 F 03/12/23 14:00 Pulse 99 03/13/23 14:00 Resp 18 03/14/23 06:00 BP 146/98 03/13/23 14:00 Pulse Ox 97 03/13/23 14:00 O2 Del Method Room Air 03/11/23 20:24 A&P Assessment and plan (1) Schizophrenia: (2) Schizoaffective disorder: Plan 22-year-old male with a history of psychosis likely schizophrenia or schizoaffective disorder currently not taking his medications and actively psychotic. 1. Encourage individual, group and milieu therapy. 2. Recommend sober living treatment at the highest level of care to which the patient is willing to commit. 3. Continue q-15 minute checks for safety.? 4.?Patient refusing any psychotropics and will likely require forced medications as patient is unlikely to improve without antipsychotic medications. Patient placed on 21-day hold 03/04/2023. After researching and calling insurance companies and old providers etc. we were able to determine his last successful treatment was Invega Sustenna and his last injection was Invega Sustenna 156 mg IM in November 2022. Patient given Invega Sustenna 234 mg IM to the deltoid loading dose 03/05/2023 which led to a code 10 and him ending up in seclusion. Next loading dose of Invega 156 mg IM to the deltoid given today in the tolerable window for the second injection, 03/10/2023. He showed some improvement that after a long conversation he was able to allow the nurse to give him the injection willingly. Next injection 04/09/2023. Involuntary Hold Information 96 Hour Hold: 96 Hour Involuntary Admission: No Attestations NPU Medical Necessity Statement*: Inpatient hospitalization is medically necessary and deemed to be the clinically appropriate intervention at this time. The patient will be started on medications and medications will be titrated as indicated. The patient's likely length of stay is 10-14 days. Could change with 21-day hold. Coding Level of Care Code Acute Code for [facility] Fwd Diagnoses Schizophrenia F20.9 Schizoaffective disorder F25.9
[2023-03-14 14:00] VITALS: BP 150/85; PULSE 89; RESP 15; TEMP 36.4; O2SAT 98
[2023-03-14] MEDS: nicotine 2 mg Gum 4 MG BUCCAL ×4 (15:11→23:08)
--- NOTE | 2023-03-14 18:03 | PC.NURSE ---
Patient standing at doorway to [facility], stating that he wants to be let out for a smoke break. refusing nicotine gum
[2023-03-14 21:21] VITALS: RESP 20
[2023-03-15] MEDS: nicotine 2 mg Gum 4 MG BUCCAL ×4 (01:43→17:49)
[2023-03-15 06:00] VITALS: RESP 16
--- NOTE | 2023-03-15 09:24 | P.NPUPN_ITS ---
Subjective NPU Subjective: Patient presents today continuing to be focused on when he might be discharged. We continue to discuss him continuing to improve on his ADLs and participation in treatment. Still reporting his grandmother and mother having some conflict as to what is best for him at discharge. It is reported that he has primarily been with grandmother for some time. We discussed that he would need to have significant improvement in functioning for resuming any level of independence. Mental Status Exam MSE Comments: This is a morbidly obese white male who appeared his stated age with poor eye contact and extremely poor hygiene. There was no evidence of any abnormal involuntary motor movements tics or tremors appreciated. There was continued psychomotor slowing. He was noncooperative with exam in mild distress. Speech continued to lack spontaneity and be monotone in quality with significant paucity of speech and continued increase in speech latency with normal volume. His mood endorsed as okay I guess I do not know. His affect was blunted. His thought process appeared superficial but linear. His thought content showed no evidence of homicidal or suicidal ideation. He did appear to be responding to internal stimuli. There was overt paranoia noted with some hyperreligious nature. His recent and remote memory was impaired. His insight is impaired. His judgment is poor. His impulse control appeared impaired. He was alert and oriented to person and place. Vitals/I&O/Wt Last Vital Signs Temp 97.6 F 03/14/23 14:00 Pulse 89 03/14/23 14:00 Resp 16 03/15/23 06:00 BP 150/85 03/14/23 14:00 Pulse Ox 98 03/14/23 14:00 O2 Del Method Room Air 03/11/23 20:24 A&P Assessment and plan (1) Schizophrenia: (2) Schizoaffective disorder: Plan 22-year-old male with a history of psychosis likely schizophrenia or schizoaffective disorder currently not taking his medications and actively psychotic. 1. Encourage individual, group and milieu therapy. 2. Recommend sober living treatment at the highest level of care to which the patient is willing to commit. 3. Continue q-15 minute checks for safety.? 4.?Patient refusing any psychotropics and will likely require forced medications as patient is unlikely to improve without antipsychotic medications. Patient placed on 21-day hold 03/04/2023. After researching and calling insurance companies and old providers etc. we were able to determine his last successful treatment was Invega Sustenna and his last injection was Invega Sustenna 156 mg IM in November 2022. Patient given Invega Sustenna 234 mg IM to the deltoid loading dose 03/05/2023 which led to a code 10 and him ending up in seclusion. Next loading dose of Invega 156 mg IM to the deltoid given today in the tolerable window for the second injection, 03/10/2023. He showed some improvement that after a long conversation he was able to allow the nurse to give him the injection willingly. Next injection 04/09/2023. Involuntary Hold Information 96 Hour Hold: 96 Hour Involuntary Admission: No Attestations NPU Medical Necessity Statement*: Inpatient hospitalization is medically necessary and deemed to be the clinically appropriate intervention at this time. The patient will be started on medications and medications will be titrated as indicated. The patient's lik brandy length of stay is 10-14 days. Could change with 21-day hold. Coding Level of Care Code [facility] Diagnoses Schizophrenia F20.9 Schizoaffective disorder F25.9
[2023-03-15] MEDS: nicotine 4 mg lozenge MUCOUS MEM (14:00)
--- NOTE | 2023-03-15 15:07 | PC.NURSE ---
patient agitated, near door. patient has been pressing on the door stating that when the door opens, he is getting out. Patient stated that if the doctor touches him, he is going to punch the doctor.
[2023-03-15 21:10] VITALS: BP 145/101; PULSE 99; RESP 20; O2SAT 97
[2023-03-16] MEDS: nicotine 2 mg Gum 4 MG BUCCAL ×4 (00:52→14:49)
--- NOTE | 2023-03-16 06:25 | P.NPUPN_ITS ---
Subjective NPU Subjective: Patient presented today reporting that he does not know how he is doing. He continued to present with limited spontaneous speech per staff reports and direct observation. He has however improved to at least giving responses even if they are less than thoughtful. We continue to discuss the importance of him taking medication and continuing with his injection to increase the likelihood of returning to his grandmother's place. I explained that there would be a new physician tomorrow. Mental Status Exam MSE Comments: This is a morbidly obese white male who appeared his stated age with poor eye contact and extremely poor hygiene. There was no evidence of any abnormal involuntary motor movements tics or tremors appreciated. There was continued psychomotor slowing. He was noncooperative with exam in mild distress. Speech continued to lack spontaneity and be monotone in quality with significant paucity of speech and continued increase in speech latency with normal volume. His mood endorsed as okay I guess I do not know. His affect was blunted. His thought process appeared superficial but linear. His thought content showed no evidence of homicidal or suicidal ideation. He did appear to be responding to internal stimuli. There was overt paranoia noted with some hyperreligious nature. His recent and remote memory was impaired. His insight is impaired. His judgment is poor. His impulse control appeared impaired. He was alert and oriented to person and place. Vitals/I&O/Wt Last Vital Signs Temp 97.6 F 03/14/23 14:00 Pulse 99 03/15/23 21:10 Resp 20 H 03/15/23 21:10 BP 145/101 03/15/23 21:10 Pulse Ox 97 03/15/23 21:10 O2 Del Method Room Air 03/11/23 20:24 A&P Assessment and plan (1) Schizophrenia: (2) Schizoaffective disorder: Plan 22-year-old male with a history of psychosis likely schizophrenia or schizoaffective disorder currently not taking his medications and actively psychotic. 1. Encourage individual, group and milieu therapy. 2. Recommend sober living treatment at the highest level of care to which the patient is willing to commit. 3. Continue q-15 minute checks for safety.? 4.?Patient refusing any psychotropics and will likely require forced medications as patient is unlikely to improve without antipsychotic medications. Patient placed on 21-day hold 03/04/2023. After researching and calling insurance companies and old providers etc. we were able to determine his last successful treatment was Invega Sustenna and his last injection was Invega Sustenna 156 mg IM in November 2022. Patient given Invega Sustenna 234 mg IM to the deltoid loading dose 03/05/2023 which led to a code 10 and him ending up in seclusion. Next loading dose of Invega 156 mg IM to the deltoid given today in the tolerable window for the second injection, 03/10/2023. He showed some improvement that after a long conversation he was able to allow the nurse to give him the injection willingly. Next injection 04/09/2023. Involuntary Hold Information 96 Hour Hold: 96 Hour Involuntary Admission: No Attestations NPU Medical Necessity Statement*: Inpatient hospitalization is medically necessary and deemed to be the clinically appropriate intervention at this time. The patient will be started on medications and medications will be titrated as indicated. The patient's likely length of stay is 10-14 days. Could change with 21-day hold. Coding Level of Care Code Acute Code for [facility] Fwd Diagnoses Schizophrenia F20.9 Schizoaffective disorder F25.9
[2023-03-16 14:00] VITALS: BP 165/109; PULSE 97; RESP 15; O2SAT 98
[2023-03-16 20:11] VITALS: PULSE 98; RESP 20; TEMP 36.4; O2SAT 96
[2023-03-16] MEDS: nicotine 4 mg lozenge MUCOUS MEM (20:14)
[2023-03-17 06:00] VITALS: RESP 16
[2023-03-17] MEDS: nicotine 2 mg Gum 4 MG BUCCAL ×3 (08:45→17:28)
--- NOTE | 2023-03-17 08:48 | PC.NURSE ---
Patient continues to be fixated on his dogs and marijuana. He states he had dreams about smoking a big ol bowl of marijuana last night. He denies si/hi and avh. He was very flighty with his thought process. 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
[2023-03-17 14:00] VITALS: RESP 14
--- NOTE | 2023-03-17 20:04 | W.PM.NPUPNS ---
Subjective NPU Subjective: Patient is a 22-year-old male with schizophrenia with a rule out of schizoaffective disorder. No side effects noted from her medications. Patient continues to report hearing multiple voices. He had continued to isolate himself on the unit. He reports that he felt as if the voices continued to flow through his brain nearly all of the day. Mental Status Exam MSE Comments: This is a morbidly obese white male who appeared his stated age with poor eye contact and extremely poor hygiene. There was no evidence of any abnormal involuntary motor movements tics or tremors appreciated. There was continued psychomotor slowing. He was more cooperative with exam in mild distress. Speech continued to lack spontaneity and be monotone in quality with significant paucity of speech and continued increase in speech latency with normal volume. His mood endorsed as OKAY. His affect was blunted and mood incongruent. His thought process appeared linear and logical. His thought content showed no evidence of homicidal or suicidal ideation. He did appear to be responding to internal stimuli. There was no overt paranoia. His recent and remote memory was impaired. His insight is impaired. His judgment is poor. His impulse control appeared impaired. He was alert and oriented to person and place. Vitals/I&O/Wt Last Vital Signs Temp 97.5 F L 03/16/23 20:11 Pulse 98 03/16/23 20:11 Resp 14 03/17/23 14:00 BP 165/109 03/16/23 14:00 Pulse Ox 96 03/16/23 20:11 O2 Del Method Room Air 03/16/23 20:11 Weight last 48 hrs Weight 217.724 kg A&P Assessment and plan (1) Schizophrenia: (2) Schizoaffective disorder: Plan 22-year-old male with a history of psychosis likely schizophrenia or schizoaffective disorder currently not taking his medications and actively psychotic. 1. Encourage individual, group and milieu therapy. 2. Recommend sober living treatment at the highest level of care to which the patient is willing to commit. 3. Continue q-15 minute checks for safety.? 4.?Patient on 21 day hold. Patient may benefit from clozaril therapy. Involuntary Hold Information 96 Hour Hold: 96 Hour Involuntary Admission: No Attestations NPU Medical Necessity Statement*: Inpatient hospitalization is medically necessary and deemed to be the clinically appropriate intervention at this time. The patient will be started on medications and medications will be titrated as indicated. The patient's likely length of stay is 10-14 days. Coding Level of Care Code Acute Code for [facility] Fwd Diagnoses Schizophrenia F20.9 Schizoaffective disorder F25.9
--- NOTE | 2023-03-17 20:14 | PC.NURSE ---
pt refused vital signs.
[2023-03-17] MEDS: nicotine 4 mg lozenge MUCOUS MEM (20:32)
--- NOTE | 2023-03-17 22:17 | PC.NURSE ---
RN WENT TO DO ASSESSMENT PT GRABBED HIS HEAD AND SHOOK IT STATING GET AWAY FROM ME GET AWAY FROM I'M NOT ANSWERING YOUR FUCKING QUESTIONS RIGHT NOW I MEAN IT GET AWAY OR I'M GONNA BLOW. RN TOLD PT THAT WAS FINE AND LEFT HIM ALONE ON THE BENCH WHERE PT CONTINUED TO TALK TO HIS SELF, REFUSE VITALS AND BAD MOUTH STAFF. SUPPORT WAS VOICED.
[2023-03-18 06:00] VITALS: RESP 18
[2023-03-18] MEDS: nicotine 4 mg lozenge MUCOUS MEM ×2 (12:37→22:29)
[2023-03-18 14:00] VITALS: BP 123/80; PULSE 76; RESP 18; TEMP 36.4; O2SAT 95
--- NOTE | 2023-03-18 18:40 | W.PM.NPUPNS ---
Subjective NPU Subjective: Patient is a 22-year-old male with schizophrenia with a rule out of schizoaffective disorder. No side effects noted from her medications. Patient continues to report that he was hearing voices. He continued to show evidence of a lack of motivation and drive. He had minimal interaction with peers or staff. He had been able to eat. He had reported a desire to get out of here . He did not report side effects from his medication. Mental Status Exam MSE Comments: This is a morbidly obese white male who appeared his stated age with poor eye contact and extremely poor hygiene. There was no evidence of any abnormal involuntary motor movements tics or tremors appreciated. There was continued psychomotor slowing. He was minimally cooperative with exam in mild distress. Speech continued to lack spontaneity and be monotone in quality with significant paucity of speech and continued increase in speech latency with normal volume. His mood endorsed as allright. His affect was blunted and mood incongruent. His thought process appeared linear and logical. His thought content showed no evidence of homicidal or suicidal ideation. He did appear to be responding to internal stimuli. There was no overt paranoia. His recent and remote memory was impaired. His insight is impaired. His judgment is poor. His impulse control appeared impaired. He was alert and oriented to person and place. Vitals/I&O/Wt Last Vital Signs Temp 97.6 F 03/18/23 14:00 Pulse 76 03/18/23 14:00 Resp 18 03/18/23 14:00 BP 123/80 03/18/23 14:00 Pulse Ox 95 03/18/23 14:00 O2 Del Method Room Air 03/16/23 20:11 A&P Assessment and plan (1) Schizophrenia: (2) Schizoaffective disorder: Plan 22-year-old male with a history of psychosis likely schizophrenia or schizoaffective disorder currently not taking his medications and actively psychotic. 1. Encourage individual, group and milieu therapy. 2. Recommend sober living treatment at the highest level of care to which the patient is willing to commit. 3. Continue q-15 minute checks for safety.? 4.?Patient on 21 day hold. Patient may benefit from clozaril therapy. Involuntary Hold Information 96 Hour Hold: 96 Hour Involuntary Admission: No Attestations NPU Medical Necessity Statement*: Inpatient hospitalization is medically necessary and deemed to be the clinically appropriate intervention at this time. The patient will be started on medications and medications will be titrated as indicated. The patient's likely length of stay is 10-14 days. Coding Level of Care Code Acute Code for [facility] Fwd Diagnoses Schizophrenia F20.9 Schizoaffective disorder F25.9
[2023-03-18 20:49] VITALS: RESP 18
[2023-03-19] MEDS: nicotine 2 mg Gum 4 MG BUCCAL (12:22)
[2023-03-19 14:00] VITALS: RESP 15
--- NOTE | 2023-03-19 18:04 | PC.NURSE ---
PT IS RESTING QUIETLY, RESPIRATIONS OBTAINED AT 15. WILL CONTINUE TO MONITOR.
--- NOTE | 2023-03-19 19:11 | W.PM.NPUPNS ---
Subjective NPU Subjective: Patient is a 22-year-old male with schizophrenia admitted with noncompliance with medications and disorganized behavior and disorganized thinking. Patient continued to isolate himself on the milieu. He had left his room briefly only to eat and consume fluids. He had continued to appear suspicious of others intention on the milieu. the patient reported no mood symptoms. He had made no clear attempts to try to flee or elope off the unit. Mental Status Exam MSE Comments: This is a morbidly obese white male who appeared his stated age with poor eye contact and extremely poor hygiene. There was no evidence of any abnormal involuntary motor movements tics or tremors appreciated. There was continued psychomotor slowing. He was minimally cooperative with exam in mild distress. Speech continued to show limited spontaneity and be monotone in quality with significant paucity of speech and continued increase in speech latency with normal volume. His mood endorsed as OKAY. His affect was blunted and mood incongruent. His thought process appeared linear and logical. His thought content showed no evidence of homicidal or suicidal ideation. He did appear to be responding to internal stimuli. There was continued evidence of paranoia. His recent and remote memory was impaired. His insight is impaired. His judgment is poor. His impulse control appeared impaired. He was alert and oriented to person and place. Vitals/I&O/Wt Last Vital Signs Temp 97.6 F 03/18/23 14:00 Pulse 76 03/18/23 14:00 Resp 15 03/19/23 14:00 BP 123/80 03/18/23 14:00 Pulse Ox 95 03/18/23 14:00 O2 Del Method Room Air 03/16/23 20:11 A&P Assessment and plan (1) Schizophrenia: (2) Schizoaffective disorder: Plan 22-year-old male with a history of psychosis likely schizophrenia or schizoaffective disorder currently not taking his medications and actively psychotic. 1. Encourage individual, group and milieu therapy. 2. Recommend sober living treatment at the highest level of care to which the patient is willing to commit. 3. Continue q-15 minute checks for safety.? 4.?Patient on 21 day hold. Patient may benefit from clozaril therapy. Continue Invega IM given. Patient refusing oral invega. Involuntary Hold Information 96 Hour Hold: 96 Hour Involuntary Admission: No Attestations NPU Medical Necessity Statement*: Inpatient hospitalization is medically necessary and deemed to be the clinically appropriate intervention at this time. The patient will be started on medications and medications will be titrated as indicated. The patient's likely length of stay is 10-14 days. Coding Level of Care Code Acute Code for [facility] Fwd Diagnoses Schizophrenia F20.9 Schizoaffective disorder F25.9
[2023-03-19] MEDS: nicotine 4 mg lozenge MUCOUS MEM ×3 (19:38→23:29)
[2023-03-19 20:52] VITALS: RESP 20
--- NOTE | 2023-03-19 20:52 | PC.NURSE ---
Patient refused vitals. RR obtained
[2023-03-20 06:00] VITALS: RESP 18
--- NOTE | 2023-03-20 06:46 | PC.NURSE ---
Patient resting. RR obtained
[2023-03-20] MEDS: nicotine 2 mg Gum 4 MG BUCCAL (13:22)
[2023-03-20 14:00] VITALS: BP 136/98; PULSE 84; RESP 16; TEMP 36.6; O2SAT 99
--- NOTE | 2023-03-20 17:27 | P.NPUPN_ITS ---
Subjective NPU Subjective: Patient is a 22-year-old male with schizophrenia admitted with noncompliance with medications and disorganized behavior and disorganized thinking. Patient spent much of the day in his room. He had eaten well but continued to show a lack of appropriate self-care. He had refused oral medications. He continued to have limited spontaneous engagements with staff or with his peers. He had expressed a desire to go home but was informed that he was now on a hold here in the hospital Mental Status Exam MSE Comments: This is a morbidly obese white male who appeared his stated age with poor eye contact and extremely poor hygiene. There was no evidence of any abnormal involuntary motor movements tics or tremors appreciated. There was continued psychomotor slowing. He was minimally cooperative with exam in mild distress. Speech continued to show limited spontaneity and be monotone in quality with significant paucity of speech and continued increase in speech latency with norm al volume. His mood endorsed as allright His affect was blunted and mood incongruent. His thought process appeared linear but derailed later. His thought content showed no evidence of homicidal or suicidal ideation. He did appear to be responding to internal stimuli. There was continued evidence of paranoia. His recent and remote memory was impaired. His insight is impaired. His judgment is poor. His impulse control appeared impaired. He was alert and oriented to person and place. Vitals/I&O/Wt Last Vital Signs Temp 98 F 03/20/23 14:00 Pulse 84 03/20/23 14:00 Resp 16 03/20/23 14:00 BP 136/98 03/20/23 14:00 Pulse Ox 99 03/20/23 14:00 O2 Del Method Room Air 03/16/23 20:11 A&P Assessment and plan (1) Schizophrenia: (2) Schizoaffective disorder: Plan 22-year-old male with a history of psychosis likely schizophrenia or schizoaffective disorder currently not taking his medications and actively psychotic. 1. Encourage individual, group and milieu therapy. 2. Recommend sober living treatment at the highest level of care to which the patient is willing to commit. 3. Continue q-15 minute checks for safety.? 4.?Patient on 21 day hold. Patient may benefit from clozaril therapy. Continue Invega IM given.Both doses of invega IM given. VERY limited improvement appreciated at this time since IM invega initiated. Involuntary Hold Information 96 Hour Hold: 96 Hour Involuntary Admission: No Attestations NPU Medical Necessity Statement*: Inpatient hospitalization is medically necessary and deemed to be the clinically appropriate intervention at this time. The patient will be started on medications and medications will be titrated as indicated. The patient's [facility] length of stay is 10-14 days. Coding Level of Care Code Acute Code for [facility] Fwd Diagnoses Schizophrenia F20.9 Schizoaffective disorder F25.9
[2023-03-20] MEDS: nicotine 4 mg lozenge MUCOUS MEM (20:40)
--- NOTE | 2023-03-20 21:27 | PC.NURSE ---
PT CONTINUES TO REFUSE TO ANSWER ASSESSMENT QUESTIONS. PT STATES I TOLD YOU I'M NOT ANSWERING THOSE QUESTIONS, I'M STAYING HERE FOREVER ANYWAY SO OH WELL. PT WAS AGAIN ENCOURAGED TO PARTICIPATE BUT DECLINES. PT DID EVENTUALLY LET RN KNOW HE WASN'T SUICIDAL, THEN SAID SO WHY AM I HERE? THIS RN GAVE PT INFORMATION ON WHY HE WAS HERE AND HIS TREATMENT GOALS FOR DISCHARGE. PT STARRED AT FLOOR AND RAMBLED ON ABOUT HATING THIS PLACE. COULD NOT MAKE ANYTHING ELSE OUT PT IS KNOWN TO MUMBLE WHEN SPEAKING. NO S/S OF PAIN OBSERVED.
[2023-03-21 06:00] VITALS: RESP 18
--- NOTE | 2023-03-21 08:02 | PC.NURSE ---
During morning assessment, patient stated I'm fine . Patient reports depression because he is stuck in the same situation. Patient denies SI, HI, AVH, and anxiety. Patient picked up room this morning. Patient currently in the shower. This nurse changed bedding and wiped down bed, toilet and windowsill.
[2023-03-21] MEDS: nicotine 4 mg lozenge MUCOUS MEM ×3 (08:14→22:07)
[2023-03-21 14:00] VITALS: BP 127/77; PULSE 64; RESP 18; TEMP 36.3; O2SAT 97
--- NOTE | 2023-03-21 17:12 | W.PM.NPUPNS ---
Subjective NPU Subjective: Patient is a 22-year-old male with schizophrenia admitted with noncompliance with medications and disorganized behavior and disorganized thinking. The patient had responded to some behavioral intervention as he had cleaned his room and had taken a shower with some significant prompting. He continued to endorse hearing voices. He had continued to refuse oral medications. Patient reported no mood symptoms at this time. He had made no attempts to elope from the unit. He continues to endorse that his thoughts were not of his own. Mental Status Exam MSE Comments: This is a morbidly obese white male who appeared his stated age with poor eye contact and extremely poor hygiene. There was no evidence of any abnormal involuntary motor movements tics or tremors appreciated. There was continued psychomotor slowing. He was minimally cooperative with exam in mild distress. Speech continued to show limited spontaneity and be monotone in quality with significant paucity of speech and continued increase in speech latency with normal volume. His mood endorsed as ok His affect was blunted and mood incongruent. His thought process appeared linear. His thought content showed no evidence of homicidal or suicidal ideation. He did appear to be responding to internal stimuli. There was continued evidence of paranoid ideation. There was continued presence of ideas of reference. His recent and remote memory was impaired. His insight is impaired. His judgment is poor. His impulse control appeared impaired. He was alert and oriented to person and place. Vitals/I&O/Wt Last Vital Signs Temp 97.4 F L 03/21/23 14:00 Pulse 64 03/21/23 14:00 Resp 18 03/21/23 14:00 BP 127/77 03/21/23 14:00 Pulse Ox 97 03/21/23 14:00 O2 Del Method Room Air 03/16/23 20:11 A&P Assessment and plan (1) Schizophrenia: (2) Schizoaffective disorder: Plan 22-year-old male with a history of psychosis likely schizophrenia or schizoaffective disorder currently not taking his medications and actively psychotic. 1. Encourage individual, group and milieu therapy. 2. Recommend sober living treatment at the highest level of care to which the patient is willing to commit. 3. Continue q-15 minute checks for safety.? 4.?Patient on 21 day hold. Patient may benefit from clozaril therapy. Continue Invega IM given.Both doses of invega IM given. Involuntary Hold Information 96 Hour Hold: 96 Hour Involuntary Admission: No Attestations NPU Medical Necessity Statement*: Inpatient hospitalization is medically necessary and deemed to be the clinically appropriate intervention at this time. The patient will be started on medications and medications will be titrated as indicated. The patient's likely length of stay is 10-14 days. Coding Level of Care Code Acute Code for [facility] Fwd Diagnoses Schizophrenia F20.9 Schizoaffective disorder F25.9
[2023-03-21 20:43] VITALS: BP 146/91; PULSE 96; RESP 18; O2SAT 97
--- NOTE | 2023-03-21 20:56 | PC.NURSE ---
ON PHONE THROUGH OUT ASSESSMENT. PT EVASIVE AND STATES HE DOES NOT WANT TO TALK TO STAFF UNLESS THEY CAN GIVE HIM A SANDWICH. PT DID DENY SI/HI AND AVH. DENIES PAIN. PT CONTINUES TO BE DEMANDING WITH STAFF, INTUSIVE AT TIMES AND IMPULSIVE. SUPPORT WAS VOICED.
--- NOTE | 2023-03-22 02:06 | PC.NURSE ---
PT CONTINUES TO COME TO WINDOW AND MAKE ACCUSATIONS TOWARDS STAFF THAT THE OTHER PATIENTS ARE OUT BACK SMOKING ON YOUR WATCH, SO LET ME OUT BACK TO HAVE A CIGARETTE. PT WAS INFORMED THERE ARE NO PATIENTS IN THE [place] SMOKING AND IT IS THE FACILITY POLICY THAT NO PATIENTS CAN GO OUTSIDE AND SMOKE. PT QUICKLY ESCALATED AND BEGAN TO LIZBET DOOR DEMANDING TO LEAVE. PT STATED YOU KNOW I DIDN'T SIGN THAT PAPER, I NEVER SIGNED A WAIVER TO STAY HERE AND NOT SMOKE. PT WAS AGAIN EDUCATED THAT THE PLASTER FORM MAKER SIGNED HIS PAPER WORK AND HE IS ON A HOLD AND ONLY THE CAN RELEASE HIM. SECURITY OBSERVED PT RAMMING DOOR AND CAME TO THE UNIT TO ASSIST. SECURITY ATTEMPTED TO SPEAK TO PT AND REITERATE THE POLICIES ON SMOKING. PT WAS OVER HEARD MAKING STATEMENTS THAT HE TRANSPORTS BETWEEN [facility] AND HERE AND ALSO SEES OTHER PATIENTS TRANSPORTING THROUGH [facility] THEN COMING BACK. SECURITY SPOKE WITH PT AT LENGTH. PT WAS OFFERED MEDICATIONS WHEN PT STATED, OH YOU WANNA GIVE ME THE MEDICINE THAT GETS YOU PUNCHED IN THE FACE. THIS RN ASSURED PT THAT WE WERE ONLY GIVING HIM CHOICES TO CALM DOWN SINCE HE IS HAVING DIFFICULTY DOING SO. PT DID FINALLY DEESCALATE AFTER SEVERAL INTERACTIONS WITH STAFF. PT DOES CONTINUE TO PACE HALLWAYS AND GO INTO BATHROOM. SUPPORT WAS VOICED.
[2023-03-22 06:00] VITALS: RESP 18
--- NOTE | 2023-03-22 06:35 | PC.NURSE ---
Patient sleeping. RR obtained.
[2023-03-22] MEDS: nicotine 4 mg lozenge MUCOUS MEM ×3 (12:16→20:25)
[2023-03-22 14:00] VITALS: BP 155/95; PULSE 96; RESP 18; TEMP 36.2; O2SAT 96
--- NOTE | 2023-03-22 16:31 | P.NPUPN_ITS ---
Subjective NPU Subjective: Patient is a 22-year-old male with schizophrenia admitted with noncompliance with medications and disorganized behavior and disorganized thinking. Patient appeared more alert today. He had acknowledged hearing voices still. He reported that he continued to be distracted by his thoughts. He had a appeared somewhat suspicious of specific foods and drinks often staring at his coffee fearing to wonder whether there was something that was placed in it. He reported no changes in regards to energy and motivation. He had been keeping his room more kept without any noticeable paper or wrappers or food left in his room unattended. He had reported adequate appetite. He had continued to refuse oral medications. He continued to spend much of the day in his bedroom but did appear out later for lunch breakfast and dinner. Mental Status Exam MSE Comments: This is a morbidly obese white male who appeared his stated age with poor eye contact and extremely poor hygiene. There was no evidence of any abnormal involuntary motor movements tics or tremors appreciated. There was continued psychomotor slowing. He was minimally cooperative with exam in mild distress. Speech continued to show limited spontaneity and be monotone in quality with significant paucity of speech and continued increase in speech latency with normal volume. His mood endorsed as ok His affect was blunted and mood incongruent. His thought process appeared linear. His thought content showed no evidence of homicidal or suicidal ideation. He did appear to be responding to internal stimuli. There was continued evidence of paranoid ideation. There was continued presence of paranoia. His recent and remote memory was impaired. His insight is impaired. His judgment is poor. His impulse control appeared impaired. He was alert and oriented to person and place but not date or time. Vitals/I&O/Wt Last Vital Signs Temp 97.4 F L 03/21/23 14:00 Pulse 96 03/21/23 20:43 Resp 18 03/22/23 06:00 BP 146/91 03/21/23 20:43 Pulse Ox 97 03/21/23 20:43 O2 Del Method Room Air 03/16/23 20:11 A&P Assessment and plan (1) Schizophrenia: (2) Schizoaffective disorder: Plan 22-year-old male with a history of psychosis likely schizophrenia or schizoaffective disorder currently not taking his medications and actively psychotic. 1. Encourage individual, group and milieu therapy. 2. Recommend sober living treatment at the highest level of care to which the patient is willing to commit. 3. Continue q-15 minute checks for safety.? 4.?Patient on 21 day hold. Patient may benefit from clozaril therapy. Continue Invega IM given.Both doses of invega IM given. Involuntary Hold Information 96 Hour Hold: 96 Hour Involuntary Admission: No Attestations NPU Medical Necessity Statement*: Inpatient hospitalization is medically necessary and deemed to be the clinically appropriate intervention at this time. The patient will be started on medications and medications will be titrated as indicated. The patient's likely length of stay is 10-14 days. Coding Level of Care Code Acute Code for [facility] Fwd Diagnoses Schizophrenia F20.9 Schizoaffective disorder F25.9
--- NOTE | 2023-03-22 21:15 | PC.NURSE ---
PT IS EVASIVE WITH ASSESSMENT. STATES HE DOESN'T WANT TO ANSWER THESE QUESTIONS AGAIN. DENIES PAIN, SI/HI AND AVH AT THIS TIME. PT IS OBSERVED TO HAVE FLAT AFFECT AND IS INTRUSIVE AT TIMES. SUPPORT VOICED.
[2023-03-22 22:00] VITALS: RESP 16
[2023-03-23] MEDS: nicotine 4 mg lozenge MUCOUS MEM ×3 (00:30→17:40)
[2023-03-23] MEDS: acetaminophen 325 mg Tablet 650 MG PO (05:41)
[2023-03-23 06:00] VITALS: BP 152/103; PULSE 100; RESP 18; TEMP 36.3; O2SAT 96
--- NOTE | 2023-03-23 08:10 | PC.NURSE ---
During morning assessment, patient stated that my brain is off. It doesn't register the same as it used to. Patient also stated to this nurse that it isn't too bad here on the unit, but that his stay would be better if he could have [employer] like once every three weeks. Patient states that he feels homesick, that he is essentially a home-body. When he was home, patient said that things were not going well because he constantly felt like he was going to snap. Patient states that he still this way, but that it's not as bad .
--- NOTE | 2023-03-23 13:52 | W.PM.NPUPNS ---
Subjective NPU Subjective: Patient is a 22-year-old male with schizophrenia admitted with noncompliance with medications and disorganized behavior and disorganized thinking. Patient was isolative on the milieu. He had reported that he was still distracted by his thoughts. He continued to struggle with completion of activities of daily living. He reported no side effects from his medication. He had still appeared somewhat paranoid but had stated that he was feeling a little better . He had continued at times to appear suspicious of specific foods and drinks. He had not answered when asked if he felt that his coffee was poisoned. Mental Status Exam MSE Comments: This is a morbidly obese white male who appeared his stated age with poor eye contact and extremely poor hygiene. There was no evidence of any abnormal involuntary motor movements tics or tremors appreciated. There was continued psychomotor slowing. He was minimally cooperative with exam in mild distress. Speech continued to show limited spontaneity and be monotone in quality with significant paucity of speech and continued increase in speech latency with normal volume. His mood endorsed as cold His affect was blunted. His thought process appeared linear. His thought content showed no evidence of homicidal or suicidal ideation. There was evident of concrete thinking. He did appear to be responding to internal stimuli. There was continued evidence of paranoid ideation. There was continued presence of paranoia. His recent and remote memory was impaired. His insight is impaired. His judgment is poor. His impulse control appeared impaired. He was alert and oriented to person and place but not date or time. Vitals/I&O/Wt Last Vital Signs Temp 97.4 F L 03/23/23 06:00 Pulse 100 03/23/23 06:00 Resp 18 03/23/23 06:00 BP 152/103 03/23/23 06:00 Pulse Ox 96 03/23/23 06:00 O2 Del Method Room Air 03/23/23 06:00 Weight last 48 hrs Weight 182.344 kg A&P Assessment and plan (1) Schizophrenia: (2) Schizoaffective disorder: Plan 22-year-old male with a history of psychosis likely schizophrenia or schizoaffective disorder currently not taking his medications and actively psychotic. 1. Encourage individual, group and milieu therapy. 2. Recommend sober living treatment at the highest level of care to which the patient is willing to commit. 3. Continue q-15 minute checks for safety.? 4.?Patient on 21 day hold. Patient may benefit from clozaril therapy. Continue Invega IM given.Both doses of invega IM given. Involuntary Hold Information 96 Hour Hold: 96 Hour Involuntary Admission: No Attestations NPU Medical Necessity Statement*: Inpatient hospitalization is medically necessary and deemed to be the clinically appropriate intervention at this time. The patient will be started on medications and medications will be titrated as indicated. The patient's likely length of stay is 10-14 days. Coding Level of Care Code Acute Code for [facility] Diagnoses Schizophrenia F20.9 Schizoaffective disorder F25.9
[2023-03-23 14:00] VITALS: BP 126/76; PULSE 73; RESP 18; TEMP 36.5; O2SAT 98
[2023-03-23] MEDS: diphenhydrAMINE 50 mg/mL SDV 1mL IM (19:38)
[2023-03-23] MEDS: LORazepam 2 mg/mL INJ 1 mL IM (19:38)
[2023-03-23] MEDS: haloperidol inj 5 mg/mL INJ 1 mL IM (19:38)
--- NOTE | 2023-03-23 19:38 | PC.NURSE ---
PATIENT GIVEN B52, CONSISTING OF BENADRYL 50MG IM, ATIVAN 2MG IM, AND 5MG HALDOL IM AT 1938. PATIENT HAS BEEN NONCOMPLIANT WITH STAFF WHEN ASKED HIM TO STEP AWAY FROM AND TO QUIT TRYING TO PUSH/KNOCK SOUTH SIDE FOYER DOOR. PATIENT HAS BROKE THIS SAME DOOR BEFORE. PRIOR TO THIS PARTICULAR OUTBURST, PATIENT WAS YELLING AT SOMEONE ON THE PHONE. PATIENT IS THREATENING TO HARM ANY AND ALL STAFF THAT IS ATTEMPTING TO DEAL WITH HIM. CODE 10 WAS CALLED AND OTHER HOSPITAL STAFF RESPONDED FROM ER, ICU, ADMINISTRATION, AND [employer] HAS BEEN NOTIFIED, AND [place] [employer] ALSO RESPONDED PATIENT WAS GESTURING AND POSTURING TOWARDS STAFF, AND THREATENING THAT SOMEONE IS GOING TO TONIGHT, LET ME OUT, OR SOMEONE IS GOING TO TONIGHT!
--- NOTE | 2023-03-23 19:55 | W.PM.BREST ---
Face to Face: Restrn/Seclusion Events leading up to initiation: Verbalizing threat to self or others, Demonstrating self-destructive behavior (cutting, hitting velasco etc.) and Combative/Striking out at staff or others Evaluation of patient's immediate situation: Alert and oriented, No signs of physical distress and Signs of psychological distress Patient reaction since intervention applied: Behaviors/threats have lessened, but still present Recent labs reviewed: No Review of medications: Yes Patient's current medical/behavioral condition: No new concerns since last ROS Need for restraint or seclusion is: Continued Attending notified: Attending completed assessment
[2023-03-23] MEDS: ziprasidone 20 mg/mL SDV IM (20:23)
--- NOTE | 2023-03-23 20:43 | PC.NURSE ---
Pt serverally agitated. RN aware, Doc aware. Code 10 called.
[2023-03-23] MEDS: water for injection-sterile 10 ML (22:57)
--- NOTE | 2023-03-23 23:19 | PC.NURSE ---
Addendum entered and electronically signed by Lacy Ballard RN 03/23/23 23:47: Code 10 Smooth Rodrigues Linseybrittany TellezLast Ashley Ballard Original Note: Patient behavior At approximately 1855 this patient started ramming the door with his shoulders. Security and house supervisors were present with several staff members. Verbal de-escalation was not working and patient was threatening to harm staff if we did not let him out. A code 10 was called. See list below for members that came. Patient continued to karen the door a staff had to go on the other side and put resistance on the door because of concern he could get the magnet locked door open with his body weight. Patient continued to karen the door, threaten to harm staff and refused medication. Dr Rojo was called and he wanted him in seclusion. To better protect the safety of the staff, [place] [employer] was called. They arrived at 1930. Officer Jake, Officer Radha and Officer Mo. The PD got him to take the prn injection, see HARDY and he walked to the seclusion room at approximately 1940. The officers left. Staff stayed and watched patient behavior. At 1954 patient started ramming the seclusion room door and punching the window and banging his on the window. Dr Rojo was notified and he ordered and another injection so the PD was called back. Patient behavior has not changed and he is still not responding to verbal de-escalation. The same officers arrived back at 2014.At 2022 the patient agreed to another injection, see HARDY. PD left again when patient laid down on the floor. Dr. Hercules was called and asked to come in and evaluate the patient. He arrived at 2056 and stated if patient remains calm to let him out of seclusion at 2114. At that time patient agreed to correct his behavior and understood that he was not going to be released tonight. He went straight too bed and continues to sleep at the time of this note. Will continue to monitor.
--- NOTE | 2023-03-24 01:51 | PC.NURSE ---
Code 10 Code 10 was called over head at 1910 due to pt becoming aggressive with staff and pushing on the exit door. Upon entering unit, staff was verbally deescalating pt unsuccessfully. Pt repeatedly hitting door and pushing door Let me out, I want out now! I dont care if your a man or woman, I'll f*cking hit them! Staff directed to support door from opposite side due to door bending when pt pushed on it. Pt directed to return to room or sit in chair to receive medications. Pt refused to leave door or to let nurses administer shots. This RN contacted head of security. I requested police presence due to nature of pt violent past with staff members and verbal threats already made. Staff directed to back away from pt until police arrived. Pt initially refused treatment when police tried to deescalate, reluctantly agreed to medications and seclusion room. Police left after pt calmed. Pt began hitting seclusion room door with his body weight and his fist. Let me f*cking out of here! Multiple staff members holding door closed due to pt weight bowing door from metal frame. Head of security contacted at that time for police presence again. This nurse called Dr Rojo to give update, physician ordered 20 IM Geodon to be administered 30 minutes after B-52 administration time. Pt remained in seclusion until NPU physician could assess pt. Approximately 1 Hr 30 Min under constant supervision.
[2023-03-24 06:00] VITALS: RESP 16
--- NOTE | 2023-03-24 06:33 | PC.NURSE ---
Per Charge nurse, only RR obtained and documented.
[2023-03-24] MEDS: nicotine 4 mg lozenge MUCOUS MEM ×3 (09:43→21:03)
--- NOTE | 2023-03-24 12:51 | XR_ITS ---
WS: [id number] XR hand RT min 3V* [id number] REASON FOR EXAM: ACUTE HAND INJURY FINDINGS: No fracture or focal bone lesion. The joint spaces of the right hand are intact and relatively well preserved. Mild narrowing of the joint space with moderate subchondral sclerosis and mild subluxation of the MP joint of the thumb. IMPRESSION: Mild/moderate osteoarthritis of the right thumb.
[2023-03-24 14:00] VITALS: BP 155/88; PULSE 102; RESP 18; TEMP 36.3; O2SAT 95
[2023-03-24] MEDS: nicotine 2 mg Gum BUCCAL ×2 (16:04→18:14)
--- NOTE | 2023-03-24 18:20 | W.PM.NPUPNS ---
Subjective NPU Subjective: Patient is a 22-year-old male with schizophrenia admitted with noncompliance with medications and disorganized behavior and disorganized thinking. Patient had significant aggression yesterday requiring placement in seclusion. He had become increasingly agitated after he had had a conversation with his grandmother. He had stated that he wished to go home. He had required as needed medications including Geodon and Haldol with patient needing almost 30 minutes before he was able to calm himself and eventually rest at night. Family members had reported to the staff that the patient had been substantially and frequently aggressive at home and had been difficult to redirect. He had been isolative on the milieu and continued to struggle with maintaining appropriate self care with limited ability to complete activities of daily living. He had continued to resist any oral medications and was unwilling to consider alternatives to his Invega. He had also appeared somewhat paranoid and hostile often stating that he did not trust people here while questioning whether his food was contaminated with medication. Mental Status Exam MSE Comments: This is a morbidly obese tall white male who appeared his stated age with poor eye contact and extremely poor hygiene. There was no evidence of any abnormal involuntary motor movements tics or tremors appreciated. There was continued psychomotor slowing. He was minimally cooperative with exam in mild distress. Speech continued to show limited spontaneity and be monotone in quality with significant paucity of speech and continued increase in speech latency with normal volume. His mood endorsed as okay His affect was blunted. His thought process appeared linear. His thought content showed no evidence of homicidal or suicidal ideation. There was evident of concrete thinking. He did appear to be responding to internal stimuli. There was continued evidence of paranoid ideation. There was continued presence of paranoia. His recent and remote memory was impaired. His insight is impaired. His judgment is poor. His impulse control appeared impaired. He was alert and oriented to person and place but not date or time. Vitals/I&O/Wt Last Vital Signs Temp 97.4 F L 03/24/23 14:00 Pulse 102 H 03/24/23 14:00 Resp 18 03/24/23 14:00 BP 155/88 03/24/23 14:00 Pulse Ox 95 03/24/23 14:00 O2 Del Method Room Air 03/23/23 06:00 Weight last 48 hrs Weight 182.344 kg A&P Assessment and plan (1) Schizophrenia: (2) Schizoaffective disorder: Plan 22-year-old male with a history of psychosis likely schizophrenia or schizoaffective disorder currently not taking his medications and actively psychotic. 1. Encourage individual, group and milieu therapy. 2. Recommend sober living treatment at the highest level of care to which the patient is willing to commit. 3. Continue q-15 minute checks for safety.? 4.?Patient on 21 day hold. Patient may benefit from clozaril therapy, but given agitation, aggression and need for frequent blood draws which patient refuses, this appears unlikely. . Continue Invega IM given.Both doses of invega IM given. Patient likely requires director long term care treatment with potential guardianship. 90 day hold filed. Involuntary Hold Information 96 Hour Hold: 96 Hour Involuntary Admission: No Attestations NPU Medical Necessity Statement*: Inpatient hospitalization is medically necessary and deemed to be the clinically appropriate intervention at this time. The patient will be started on medications and medications will be titrated as indicated. The patient's likely length of stay is 10-14 days. Coding Level of Care Code Acute Code for [facility] Fwd Diagnoses Schizophrenia F20.9 Schizoaffective disorder F25.9
[2023-03-24 20:23] VITALS: BP 153/99; PULSE 100; RESP 18; TEMP 36.5; O2SAT 98
--- NOTE | 2023-03-24 21:56 | PC.NURSE ---
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 This tech let patient know that he can not be hanging out at the nurses station and that he will need to speak with the doctor tomorrow in reference to being released. Roughly 5 minutes later patient stated that he needed to know his release date. This tech again informed patient that he needed to speak with the Doctor in reference to his release.
[2023-03-25] MEDS: nicotine 4 mg lozenge MUCOUS MEM ×5 (02:33→23:44)
[2023-03-25 06:00] VITALS: RESP 16
--- NOTE | 2023-03-25 06:40 | PC.NURSE ---
Due to patients up all night and patients agitated state. RR only were obtained per charge nurse.
--- NOTE | 2023-03-25 16:21 | P.NPUPN_ITS ---
Subjective NPU Subjective: Patient is a 22-year-old male with schizophrenia admitted with noncompliance with medications and disorganized behavior and disorganized thinking. Patient continues spend much of the afternoon sleeping. He was minimally communicative or cooperative today. He did not have any acts of aggression and no physical or verbal threats to others noted. He had continued to eat excessively. He had reported frustration with being here. He had stated that he was upset that he could not go back to live with his grandmother until he was better. He reported no mood symptoms. Mental Status Exam MSE Comments: This is a morbidly obese tall white male who appeared his stated age with poor eye contact and extremely poor hygiene. There was no evidence of any abnormal involuntary motor movements tics or tremors appreciated. There was continued psychomotor slowing. He was minimally cooperative with exam in no acute distress on interview. Speech continued to show limited spontaneity and be monotone in quality with significant paucity of speech and continued increase in speech latency with normal volume. His mood was not endorsed today. His affect was blunted. His thought process appeared linear. His thought content showed no evidence of homicidal or suicidal ideation. There was evident of concrete thinking. He did appear to be responding to internal stimuli. There was continued evidence of paranoid ideation. His recent and remote memory was impaired. His insight is impaired. His judgment is poor. His impulse control appeared impaired. He was alert and oriented to person and place but not date or time. Vitals/I&O/Wt Last Vital Signs Temp 97.7 F 03/24/23 20:23 Pulse 100 03/24/23 20:23 Resp 16 03/25/23 06:00 BP 153/99 03/24/23 20:23 Pulse Ox 98 03/24/23 20:23 O2 Del Method Room Air 03/23/23 06:00 A&P Assessment and plan (1) Schizophrenia: (2) Schizoaffective disorder: Plan 22-year-old male with a history of psychosis likely schizophrenia or schizoaffective disorder currently not taking his medications and actively psychotic. 1. Encourage individual, group and milieu therapy. 2. Recommend sober living treatment at the highest level of care to which the patient is willing to commit. 3. Continue q-15 minute checks for safety.? 4.?Patient on 21 day hold. Patient may benefit from clozaril therapy, but given agitation, aggression and need for frequent blood draws which patient refuses, this appears unlikely. . Continue Invega IM given.Both doses of invega IM given. 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 90 day hold filed. Involuntary Hold Information 96 Hour Hold: 96 Hour Involuntary Admission: No Attestations NPU Medical Necessity Statement*: Inpatient hospitalization is medically necessary and deemed to be the clinically appropriate intervention at this time. The patient will be started on medications and medications will be titrated as indicated. The patient's likely length of stay is 10-14 days. Coding Level of Care Code Acute Code for [facility] Fwd Diagnoses Schizophrenia F20.9 Schizoaffective disorder F25.9
[2023-03-25 20:05] VITALS: RESP 20
--- NOTE | 2023-03-25 20:05 | PC.NURSE ---
Due to patients agitated state, vitals were not obtained. RR recorded.
[2023-03-25] MEDS: OLANZapine 5 mg ODT PO (23:35)
--- NOTE | 2023-03-25 23:45 | PC.NURSE ---
Patient Behavior At around 2250 the patient started banging his head on the wall and repeatedly demanding to get out. He then starting pushing on the nurses station door. Security and head of housekeeping were called. At 2335 with the entire time used to verbally de-escalate patient, he agreed to take a Zyprexa Zydis. Made threats to bust up staff if we did not release him. The discharge process was repeated to him repeatedly and patient continued to block. Non-sensical sentences and rambling continued while patient was sitting on the bench at 1157. Will continue to monitor. Patient has calmed somewhat.
[2023-03-26] MEDS: nicotine 2 mg Gum BUCCAL (11:04)
--- NOTE | 2023-03-26 12:33 | PC.NURSE ---
Patient states if that lady comes back he's going to throw some coffee. This RN asked what he was talking about and he said, the lady came and took my shit man. The emergency immigration case manager had recently talked to him and asked him to clean his room, but she did not take anything from him, so this RN asked what was taken. He replied, my head space, man. She always takes my head space. I'm not going to get it back. Patient was verbally redirected successfully at this point and time.
[2023-03-26 14:00] VITALS: RESP 17
--- NOTE | 2023-03-26 15:08 | PC.NURSE ---
PT REFUSED 1400, RESPIRATIONS WERE OBTAINED AT 17. WILL CONTINUE TO MONITOR.
--- NOTE | 2023-03-26 15:38 | W.PM.NPUPNS ---
Subjective NPU Subjective: Patient is a 22-year-old male with schizophrenia admitted with noncompliance with medications and disorganized behavior and disorganized thinking. Patient had been extremely agitated last night and required intramuscular Geodon before he had escalated. He had continued to appear agitated and somewhat uncooperative. He had refused any oral medications. He had reported that he wished to go home. He appeared minimally interested in communicating his needs except reporting that he was frequently hungry. Mental Status Exam MSE Comments: This is a morbidly obese tall white male who appeared his stated age with poor eye contact and extremely poor hygiene. There was no evidence of any abnormal involuntary motor movements tics or tremors appreciated. There was continued psychomotor slowing. He was minimally cooperative with exam in no acute distress on interview. Speech continued to show limited spontaneous speech with monotone quality with significant paucity of speech and continued evidence of increased speech latency. His mood was described as okay. His affect was blunted and mood incongruent. His thought process appeared linear. His thought content showed no evidence of homicidal or suicidal ideation. There was evident of concrete thinking. He did appear to be responding to internal stimuli. There was continued evidence of paranoid ideation. His recent and remote memory was impaired. His insight is impaired. His judgment is poor. His impulse control appeared impaired. He was alert and oriented to person and place but not date or time. Vitals/I&O/Wt Last Vital Signs Temp 97.7 F 03/24/23 20:23 Pulse 100 03/24/23 20:23 Resp 17 03/26/23 14:00 BP 153/99 03/24/23 20:23 Pulse Ox 98 03/24/23 20:23 O2 Del Method Room Air 03/23/23 06:00 A&P Assessment and plan (1) Schizophrenia: (2) Schizoaffective disorder: Plan 22-year-old male with a history of psychosis likely schizophrenia or schizoaffective disorder currently not taking his medications and actively psychotic. 1. Encourage individual, group and milieu therapy. 2. Recommend sober living treatment at the highest level of care to which the patient is willing to commit. 3. Continue q-15 minute checks for safety.? 4.?Patient on 21 day hold. Patient may benefit from clozaril therapy, but given agitation, aggression and need for frequent blood draws which patient refuses, this appears unlikely. . Continue Invega IM given.Both doses of invega IM given. Patient likely requires rn long term care treatment with potential need for guardianship. 90 day hold granted today in court. Patient may benefit from additional IM Abilify possibly. . Involuntary Hold Information 96 Hour Hold: 96 Hour Involuntary Admission: No Attestations NPU Medical Necessity Statement*: Inpatient hospitalization is medically necessary and deemed to be the clinically appropriate intervention at this time. The patient will be started on medications and medications will be titrated as indicated. The patient's likely length of stay is 10-14 days. Coding Level of Care Code Acute Code for [facility] Fwd Diagnoses Schizophrenia F20.9 Schizoaffective disorder F25.9
--- NOTE | 2023-03-26 21:03 | PC.NURSE ---
RESTING IN BED, AROUSES AND ANSWERS ASSESSMENT QUESTIONS THEN ROLLED OVER AND WENT BACK TO SLEEPING. DENIES PAIN, SI/HI And AVH AT THIS TIME. RATES ANXIETY AND DEPRSSION 0/10. NOTED TO HAVE FLAT AFFECT AND EVASIVE WITH QUESTIONS. ALL QUESTIONS ANSWERED AND SUPPORT WAS VOICED.
--- NOTE | 2023-03-26 22:10 | PC.NURSE ---
Patient refused vitals RR 18
--- NOTE | 2023-03-27 01:55 | PC.NURSE ---
CONTINUES TO BE UP AND PACING HALLS, DEMANDING I GET MY GUM NOW. THIS RN HAS OBSERVED PT PUTTING GUM IN THE FLOORS, ROMANO AND BENCHES. PT HAS BEEN EDUCATED NOT TO DO THIS BUT CONTINUES. PT WAS OFFERED LOZGENS BUT PT DECLINES. PT ENCOURAGED TO SLEEP, PT STATES I'M NOT TIRED JUST GIVE ME THE FUCKING GUM. SUPPORT VOICED.
[2023-03-27] MEDS: OLANZapine 5 mg ODT PO (01:57)
[2023-03-27] MEDS: nicotine 4 mg lozenge MUCOUS MEM ×3 (01:57→20:36)
--- NOTE | 2023-03-27 05:52 | PC.NURSE ---
ZYDIS MG WAS GIVEN ORDERED FOR INCREASED ANXIETY AND AGITATION. PT TOOK WITHOUT ISSUE AFTER EDUCATION. MEDICATION WAS , GIVEN AT 0157 AM, SHORTLY AFTER PT LAID DOWN IN BED TO REST AND THEN FELL ASLEEP AT APPROXIMATELY 300 AM, PT CONTINUES TO SLEEP WITH EASE. MEDICATION DEEMED EFFECTIVE.
[2023-03-27 06:00] VITALS: RESP 20
--- NOTE | 2023-03-27 06:53 | PC.NURSE ---
Attempted to obtain vitals from patient. Due to patient being up for the majority of the night, we were unable to wake patient for vitals. RR documented. Charge nurse notified.
--- NOTE | 2023-03-27 13:06 | PC.NURSE ---
DRY ROOM ATTENDANT BROUGHT UP SCALE THAT GAVE ACCURATE WEIGHT FOR PT. PT ACCURATE WEIGHT WAS 461.8LBS.
--- NOTE | 2023-03-27 13:36 | W.PM.NPUPNS ---
Subjective NPU Subjective: Patient presented today reporting that he is doing okay. He seems to be more communicative than when he was last seen a couple weeks ago. Otherwise he has no real insight into where to go next or any identifiable motivation to make changes. We continued to explore whether an additional medication would be indicated and we talked about working with the treatment team to figure out whether guardianship or placement will be necessary. Mental Status Exam MSE Comments: This is a morbidly obese tall white male who appeared his stated age with poor eye contact and extremely poor hygiene. There was no evidence of any abnormal involuntary motor movements tics or tremors appreciated. There was continued psychomotor slowing. He was minimally cooperative with exam in no acute distress on interview. Speech continued to show limited spontaneous speech with monotone quality with significant paucity of speech and continued evidence of increased speech latency. His mood was described as okay. His affect was blunted and odd. His thought process appeared linear. His thought content showed no evidence of homicidal or suicidal ideation. There was evident of concrete thinking. He did appear to be responding to internal stimuli. There was continued evidence of paranoid ideation. His recent and remote memory was impaired. His insight is impaired. His judgment is poor. His impulse control appeared impaired. He was alert and oriented to person and place but not date or time. Vitals/I&O/Wt Last Vital Signs Temp 97.7 F 03/24/23 20:23 Pulse 100 03/24/23 20:23 Resp 20 H 03/27/23 06:00 BP 153/99 03/24/23 20:23 Pulse Ox 98 03/24/23 20:23 O2 Del Method Room Air 03/23/23 06:00 Weight last 48 hrs Weight 209.333 kg A&P Assessment and plan (1) Schizophrenia: (2) Schizoaffective disorder: Plan 22-year-old male with a history of psychosis likely schizophrenia or schizoaffective disorder currently not taking his medications and actively psychotic. 1. Encourage individual, group and milieu therapy. 2. Recommend sober living treatment at the highest level of care to which the patient is willing to commit. 3. Continue q-15 minute checks for safety.? 4.?Patient on 90 day hold. Patient may benefit from clozaril therapy, but given agitation, aggression and need for frequent blood draws which patient refuses, this appears unlikely. . Continue Invega IM given.Both doses of invega IM given. 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 Patient may benefit from additional IM Abilify possibly. . Involuntary Hold Information 96 Hour Hold: 96 Hour Involuntary Admission: No Attestations NPU Medical Necessity Statement*: Inpatient hospitalization is medically necessary and deemed to be the clinically appropriate intervention at this time. The patient will be started on medications and medications will be titrated as indicated. The patient's likely length of stay is 10-14 days. Coding Level of Care Code Acute Code for [facility] Fwd Diagnoses Schizophrenia F20.9 Schizoaffective disorder F25.9
[2023-03-27 20:17] VITALS: BP 146/93; PULSE 100; RESP 20; TEMP 36.2; O2SAT 94
--- NOTE | 2023-03-27 20:53 | PC.NURSE ---
PT ON BENCH YELLING AT STAFF TO TURN ON THESE FUCKING PHONES, STOP DELETING MY FILES SO I CAN LEAVE. PT WAS INFORMED THAT HE IS NOT BEING DISCHARGED. PT APPEARS TO LACK THE MENTAL CAPACITY TO COMPREHEND WHY HE CAN NOT LEAVE. PT CONTINUES TO BE AGITATED YELLING AND CUSSING AT STAFF. PHONE WAS TURNED ON AND PT DID SPEAK TO HIS GRANDMOTHER. PT BEGAN CUSSING ON THE PHONE AND GETTING LOUD PT WAS ENCOURAGED TO BE QUIET DUE TO OTHER PTS RESTING. PT WOULD NOT STOP AND WAS ASKED TO GET OFF THE PHONE SO ANOTHER PT COULD USE IT. PT DID WHAT WAS ASKED. PT DID DENY PAIN, SI/HI AND AVH AT THIS TIME. DECLINES RATING ANXIETY AND DEPRESSION. ALL QUESTIONS ANSWERED AND SUPPORT VOICED.
[2023-03-28] MEDS: OLANZapine 5 mg ODT PO ×2 (00:05→20:04)
[2023-03-28] MEDS: nicotine 4 mg lozenge MUCOUS MEM ×4 (00:05→20:04)
--- NOTE | 2023-03-28 02:01 | PC.NURSE ---
CONTINUES TO PACE HALLS ASKS FOR MULTIPLE SNACKS. PT HAS EATEN 4 SANDWHICHES, 3 BAGS OF GRANDMAS COOKIES, 2 BAGS OF CHEETOES, AND 3 BAGS OF CHIPS, 2 PACKS OF CRACKERS AND HAS DRANK APPROXIMATELY 10 LARGE CUPS OF TEA, LEMONAIDE AND WATER. PT HAS BEEN ENCOURAGED TO GO TO BED AND REST SEVERAL TIMES BUT PT CHOOSES TO SIT ON BENCH AT NURSES STATION AND CUSS, YELL AT STAFF. SUPPORT VOICED.
--- NOTE | 2023-03-28 06:50 | PC.NURSE ---
Attempted to obtain vitals from patients. Patient stated I'm too tired for this shit . Charge Nurse notified.
[2023-03-28] MEDS: ARIPiprazole 10 mg Tablet PO (12:06)
[2023-03-28 14:00] VITALS: BP 120/77; PULSE 74; RESP 16; TEMP 36.6; O2SAT 96
--- NOTE | 2023-03-28 14:59 | P.NPUPN_ITS ---
Subjective NPU Subjective: Patient presented today reporting that he is doing okay. He continues to be more communicative and denied any major problems. We had discussed him taking the second medication which is Abilify 10 mg p.o. every morning. We discussed the risks, benefits and alternatives and he reported that he understood and agreed to proceed as is documented in this note. Mental Status Exam MSE Comments: This is a morbidly obese tall white male who appeared his stated age with poor eye contact and extremely poor hygiene. There was no evidence of any abnormal involuntary motor movements tics or tremors appreciated. There was continued psychomotor slowing. He was minimally cooperative with exam in no acute distress on interview. Speech continued to show limited spontaneous speech with monotone quality with significant paucity of speech and continued evidence of increased speech latency. His mood was described as okay. His affect was blunted and odd. His thought process appeared linear. His thought content showed no evidence of homicidal or suicidal ideation. There was evident of concrete thinking. He did appear to be responding to internal stimuli. There was continued evidence of paranoid ideation. His recent and remote memory was impaired. His insight is impaired. His judgment is poor. His impulse control appeared impaired. He was alert and oriented to person and place but not date or time. Vitals/I&O/Wt Last Vital Signs Temp 97.2 F L 03/27/23 20:17 Pulse 100 03/27/23 20:17 Resp 20 H 03/27/23 20:17 BP 146/93 03/27/23 20:17 Pulse Ox 94 03/27/23 20:17 O2 Del Method Room Air 03/27/23 20:17 Weight last 48 hrs Weight 209.333 kg A&P Assessment and plan (1) Schizophrenia: (2) Schizoaffective disorder: Plan 22-year-old male with a history of psychosis likely schizophrenia or schizoaffective disorder currently not taking his medications and actively psychotic. 1. Encourage individual, group and milieu therapy. 2. Recommend sober living treatment at the highest level of care to which the patient is willing to commit. 3. Continue q-15 minute checks for safety.? 4.?Patient on 90 day hold. Patient may benefit from clozaril therapy, but given agitation, aggression and need for frequent blood draws which patient refuses, this appears unlikely. . Continue Invega IM given.Both doses of invega IM given. Patient likely requires detention treatment with potential need for guardianship. Started Abilify 10 mg p.o. daily aiming towards second long- acting injectable. Involuntary Hold Information 96 Hour Hold: 96 Hour Involuntary Admission: No Attestations NPU Medical Necessity Statement*: Inpatient hospitalization is medically necessary and deemed to be the clinically appropriate intervention at this time. The patient will be started on medications and medications will be titrated as indicated. The patient's likely length of stay is 10-14 days. Coding Level of Care Code Acute Code for [facility] Fw Diagnoses Schizophrenia F20.9 Schizoaffective disorder F25.9
--- NOTE | 2023-03-28 20:41 | PC.NURSE ---
SITTING IN CHAIR ON PHONE WITH GRANDMA OBSERVED YELLING AND CUSSING IN THE PHONE, MAKES STATEMENTS VERY LOUDLY THAT I HATE THIS PLACE THERES NOTHING TO DO AND THEY SIT BEHIND THE GLASS DELETING FILES AND MESSING WITH MY PAPER WORK SO I'M STUCK HERE. PT DID GET OFF PHONE AND WAS INFORMED THAT THE NURSES AND STAFF OUR CHARTING AT THE DESK NO DELETING FILES, PT STATED OH OH OK DENIES PAIN, SI/HI AND AVH AT THIS TIME. RATES ANXIETY AND DEPRESSION 0/10. SUPPORT VOICED.
[2023-03-28 20:42] VITALS: BP 147/99; PULSE 99; RESP 18; TEMP 36.3; O2SAT 97
[2023-03-28] MEDS: nicotine 2 mg Gum BUCCAL (21:56)
[2023-03-28] MEDS: haloperidol inj 5 mg/mL INJ 1 mL 10 MG IM (23:32)
[2023-03-28] MEDS: LORazepam 2 mg/mL INJ 1 mL IM (23:32)
[2023-03-28] MEDS: diphenhydrAMINE 50 mg/mL SDV 1mL IM (23:34)
--- NOTE | 2023-03-28 23:55 | PC.NURSE ---
PT STARTED ESCALATING APPROXIMATELY 2144 DUE TO NOT BEING ABLE TO SMOKE. PT WAS TELLING THIS RN I KNOW YOU HAVE A FORM IN YOUR FILE AND SINCE YOU HAVE MY FORM THEN YOU CAN GIVE ME A CIGARETTE AND LET ME SMOKE. THIS RN ATTEMPTED TO EDUCATE PT ON SMOKING POLICY OF HOSPITAL WITH NO RESOLVE. DR. LEIJA ATTEMPTED TO EDUCATE PT THAT NO ONE CAN SMOKE AT THE HOSPITAL, WITH NO RESOLVE. PT THEN BEGAN RAMMING AND THRUSTING HIS WEIGHT AGAINST THE DOOR BY THE NURSES STATION DEMANDING STAFF LET HIM LEAVE TO SMOKE. PT WAS UNABLE TO BE VERBALLY REDIRECTED. WALL WAS OBSERVED BOWING INWARD, SECURITY WAS CALLED FOR STANDBY AND ASSISTANCE. SECURITY ARRIVED ON UNIT AT 2231 AND ATTEMPTED TO REASON WITH PT AND OFFER CHOICES. PT CONTINUES TO DECLINE ANY INTERVENTION AT THIS TIME. STATES I JUST WANT TO LEAVE. MAKE UP OPERATOR WAS NOTIFIED OF PT BEHAVIORS AND FAILED ATTEMPTS TO DEESCALATE. SECURITY ATTEMPTED TO TALK TO PT AND EXPLAIN TO HIM THAT HE CAN NOT LEAVE DUE TO BEING ON A 90 DAY HOLD SIGNED BY A GAS BRAZER. PT BECAME MORE AGITATED AND THREW HIS TRASH AT THE WINDOWS AND THEN A CUP OF WATER AT THE CLIENT ADVISOR. PT CONTINUED WITH BEHAVIORS UNTIL 2299. SECURITY CALLED JEREMIAH WHO ARRIVED AT 230 AND THEN THE DECISION WAS MADE TO CONTACT [facility] TO ENSURE STAFF AND PT SAFETY. THIS RN NOTIFIED DR. LEIJA AT 230 AND RECEIVED ORDERS FOR 10 MG HALDOL IM NOW, BENADRYL 50 MG IM NOW AND 2 MG OF ATIVAN IM NOW. ORDERS PLACED AND MEDICATIONS PULLED. POLICE ARRIVED AT 2310 AND MADE CONTACT WITH PT AND ATTEMPTED TO CALM HIM AND TALK HIM INTO TAKING MEDIATIONS WITHOUT FIGHTING THE STAFF. PT CONTINUED TO REFUSE STATING IF YOU ALL TOUCH ME THEN YOU ALL ARE GOING TO . Desirae KUMAR AND POLICE OFFICERS SPOKE WITH PT FOR 30 MINUTES TRYING TO GET PT TO UNDERSTAND WHY HE NEEDS THE MEDIATIONS TO CALM DOWN. PT THEN CONTINUED TO STATED YOU TOUCH ME YOU . OFFICER ON SCENE INFORMED PT THAT HE WAS GETTING THE INJECTION THAT THE WANTED HIM TO HAVE. AT 2330 2 OFFICERS CAME TO PTS SIDE AND Desirae KUMAR WAS POSITIONED IN FRONT OF PT WHILE PT WAS SITTING IN CHAIR AND PTS HANDS WERE HELD FOR APPROXIMATELY 20 SECONDS WHILE CRUSHER AND BINDER OPERATOR ADMINISTERED 10 MG OF HALDOL AND 2 MG OF ATIVAN TO LEFT DELTOID AND THIS RN ADMINISTERED 50 MG OF BENADRYL TO RIGHT DELTOID. ORDERS RECEIVED AND PLACED FOR MANUAL HOLD ONE MINUTE WHILE INJECTIONS WERE GIVEN. PT DID NOT ATTEMPT TO FIGHT. PT SAT IN CHAIR AND ALLOWED NURSES TO ADMINISTER INJECTIONS WITHOUT ISSUE. PT DID AGREE TO GET UP AND GO TO ROOM TO REST. PT DID CONTINUE TO ARGUE AND MAKE NEGATIVE REMARKS TO STAFF BUT WAS ABLE TO BE VERBALLY DEESCALATED BY Desirae KUMAR. PT CAME DOWN TO NURSES STATION AT 2345 AND WAS GIVEN TEA AND A SNACK, THEN SAT ON BENCH CALMLY. AT 2355 [place] OFFICERS LEFT UNIT. AT 0045 PT CONTINUES TO BE AWAKE AND IS SITTING IN DAY ROOM COLORING PICTURES AND DRINKING AND EATING SNACKS.
[2023-03-29] MEDS: nicotine 2 mg Gum BUCCAL ×2 (01:58→18:27)
--- NOTE | 2023-03-29 04:07 | PC.NURSE ---
STAFF ATTEMPTED TO GET VITAL SIGNS AN HOUR AFTER HALDOL/ATIVAN AND BENADRYL WAS GIVEN IM DUE TO PT OUTBURST AND BEHAVIORS. PT STATED NAH I'M OK I'M NOT DOING THAT. STAFF ATTEMPTED AGAIN 30 MINUTES LATER PT CONTINUED TO TELL STAFF NO YOUR NOT TOUCHING ME JUST LEAVE ME ALONE. PT IS OBSERVED TO BE CALM, RESPIRATION 18, NO DISTRESS. RN INSTRUCTED STAFF TO OBTAIN VITALS WHEN THEY ARE DUE AT 0600. AT 0400 AM PT DID EVENTUALLY LAY DOWN IN BED. THIS RN WENT TO CHECK ON PT, SHUT PTS LIGHT OUT AND ASKED IF HE NEEDED ANYTHING BEFORE GOING TO SLEEP, PT STATED NO JUST SHUT OFF THE LIGHT GOOD NIGHT. PT HAS NOT SLEPT ANY THIS SHIFT. WILL CONTINUE TO PROMOTE GOOD SLEEP HABITS AND ENCOURAGE SLEEP HYGIENE. SUPPORT VOICED.
[2023-03-29 06:00] VITALS: BP 115/68; PULSE 74; RESP 18; TEMP 36.5; O2SAT 95
[2023-03-29] MEDS: ARIPiprazole 10 mg Tablet PO (12:13)
[2023-03-29] MEDS: OLANZapine 5 mg ODT PO ×2 (12:13→19:55)
[2023-03-29] MEDS: nicotine 4 mg lozenge MUCOUS MEM ×2 (12:14→19:54)
[2023-03-29 14:00] VITALS: BP 133/74; PULSE 74; RESP 17; TEMP 36.4; O2SAT 96
--- NOTE | 2023-03-29 14:01 | W.PM.NPUPNS ---
Subjective NPU Subjective: Patient presented today continuing to report that he is doing fine and being focused on going home. Staff reported significant concerns with his self-care and hygiene leading to us actively getting him to get up and shower and then cleaning the area that he was laying in. Continues to struggle with being able to do basic activities like wipe after defecating per staff. He did report taking his medication again today and we discussed the fact that we were hoping to get him on a possible second injection if improvement seems likely more noteworthy. Mental Status Exam MSE Comments: This is a morbidly obese tall white male who appeared his stated age with poor eye contact and extremely poor hygiene. There was no evidence of any abnormal involuntary motor movements tics or tremors appreciated. There was continued psychomotor slowing. He was minimally cooperative with exam in no acute distress on interview. Speech continued to show limited spontaneous speech with monotone quality with significant paucity of speech and continued evidence of increased speech latency. His mood was described as okay. His affect was blunted and odd. His thought process appeared linear. His thought content showed no evidence of homicidal or suicidal ideation. There was evident of concrete thinking. He did appear to be responding to internal stimuli. There was continued evidence of paranoid ideation. His recent and remote memory was impaired. His insight is impaired. His judgment is poor. His impulse control appeared impaired. He was alert and oriented to person and place but not date or time. Vitals/I&O/Wt Last Vital Signs Temp 97.7 F 03/29/23 06:00 Pulse 74 03/29/23 06:00 Resp 18 03/29/23 06:00 BP 115/68 03/29/23 06:00 Pulse Ox 95 03/29/23 06:00 O2 Del Method Room Air 03/29/23 06:00 A&P Assessment and plan (1) Schizophrenia: (2) Schizoaffective disorder: Plan 22-year-old male with a history of psychosis likely schizophrenia or schizoaffective disorder currently not taking his medications and actively psychotic. 1. Encourage individual, group and milieu therapy. 2. Recommend sober living treatment at the highest level of care to which the patient is willing to commit. 3. Continue q-15 minute checks for safety.? 4.?Patient on 90 day hold. Patient may benefit from clozaril therapy, but given agitation, aggression and need for frequent blood draws which patient refuses, this appears unlikely. . Continue Invega IM given.Both doses of invega IM given. Patient likely requires assisted treatment with potential need for guardianship. Started Abilify 10 mg p.o. daily aiming towards second long-acting injectable. Involuntary Hold Information 96 Hour Hold: 96 Hour Involuntary Admission: No Attestations NPU Medical Necessity Statement*: Inpatient hospitalization is medically necessary and deemed to be the clinically appropriate intervention at this time. The patient will be started on medications and medications will be titrated as indicated. The patient's likely length of stay is 10-14 days. Coding Level of Care Code Acute Code for [facility] Fwd Diagnoses Schizophrenia F20.9 Schizoaffective disorder F25.9
--- NOTE | 2023-03-29 16:07 | PC.NURSE ---
New scrubs were obtained for patient for a shower. Patient has not had a shower in a few days so FEDERAL AGENT encouraged him to shower. When in his room it was noted that there was fecal matter on his blanket. This was pointed out to him and he was asked to shower and told we would change his linens. Patient said, maybe later. He was told it was important for him to shower and keep clean and that he did not need to be lying in/around fecal matter. Patient stated he didn't care and that he was not going to take a shower right now.
--- NOTE | 2023-03-29 18:31 | PC.NURSE ---
Pt was encouraged and prompt several time throughout this shift to please take a shower. Pt was escorted to other akers for a shower. While pt was in shower, METHANE GAS COLLECTION SYSTEM OPERATOR and HARNESS FITTER cleaned up pt's room and placed clean linens on pt's bed. Pt was given clean clothes to wear while other set of clothes is being sent to laundry.
[2023-03-29 20:06] VITALS: BP 151/104; PULSE 100; RESP 20; TEMP 36.4; O2SAT 98
[2023-03-30] MEDS: nicotine 4 mg lozenge MUCOUS MEM ×2 (01:22→03:36)
[2023-03-30] MEDS: nicotine 2 mg Gum BUCCAL ×4 (05:01→18:49)
--- NOTE | 2023-03-30 05:04 | PC.NURSE ---
Patient Behavior At approx 0450 Security was called because patient was pulling on the glass at the nurses station because he was told he could not have a cigarette. Patient was verbally de-escalated.
[2023-03-30 06:00] VITALS: BMI 60.0
--- NOTE | 2023-03-30 07:34 | PC.NURSE ---
Patient watching tv in the dayroom. When asked how he was feeling he replied, not good. This RN asked what was wrong and he said he just wanted to go home. Patient denied feeling depressed or anxious though and also denied si/hi and avh.
--- NOTE | 2023-03-30 08:39 | PC.NURSE ---
Patient refused abilify this morning. He states he does not take this, although he has agreed to take it the last two days and was reminded of this. Patient was explained the benefits of the medication, but continued to refuse. Dr. Rojo was notified and no new orders were given at this time.
--- NOTE | 2023-03-30 08:47 | P.NPUPN_ITS ---
Subjective NPU Subjective: Patient presented today reporting that things are going okay. He did unfortunately refuse his medication today. We discussed the fact that ultimately the plan was to get him on that medication and we vet a couple of days to make sure there is no problems or side effects. We discussed wanting to have more time and trial but if he is not going to do that we are going to need to administer the Abilify Maintena injection tomorrow to which he said he did not care. Mental Status Exam MSE Comments: This is a morbidly obese tall white male who appeared his stated age with poor eye contact and extremely poor hygiene. There was no evidence of any abnormal involuntary motor movements tics or tremors appreciated. There was continued psychomotor slowing. He was minimally cooperative with exam in no acute distress on interview. Speech continued to show limited spontaneous speech with monotone quality with significant paucity of speech and continued evidence of increased speech latency. His mood was described as okay. His affect was blunted and odd. His thought process appeared linear. His thought content showed no evidence of homicidal or suicidal ideation. There was evident of concrete thinking. He did appear to be responding to internal stimuli. There was continued evidence of paranoid ideation. His recent and remote memory was impaired. His insight is impaired. His judgment is poor. His impulse control appeared impaired. He was alert and oriented to person and place but not date or time. Vitals/I&O/Wt Last Vital Signs Temp 97.6 F 03/29/23 20:06 Pulse 100 03/29/23 20:06 Resp 20 H 03/29/23 20:06 BP 151/104 03/29/23 20:06 Pulse Ox 98 03/29/23 20:06 O2 Del Method Room Air 03/29/23 20:06 Weight last 48 hrs Weight 189.602 kg Weight 189.602 kg A&P Assessment and plan (1) Schizophrenia: (2) Schizoaffective disorder: Plan 22-year-old male with a history of psychosis likely schizophrenia or schizoaffective disorder currently not taking his medications and actively psychotic. 1. Encourage individual, group and milieu therapy. 2. Recommend sober living treatment at the highest level of care to which the patient is willing to commit. 3. Continue q-15 minute checks for safety.? 4.?Patient on 90 day hold. Patient may benefit from clozaril therapy, but given agitation, aggression and need for frequent blood draws which patient refuses, t his appears unlikely. . Continue Invega IM given.Both doses of invega IM given. 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 Started Abilify 10 mg p.o. daily aiming towards second long- acting injectable. Likely will give him the injection tomorrow since he has demonstrated no problems with the medication. Involuntary Hold Information 96 Hour Hold: 96 Hour Involuntary Admission: No Attestations NPU Medical Necessity Statement*: Inpatient hospitalization is medically necessary and deemed to be the clinically appropriate intervention at this time. The patient will be started on medications and medications will be titrated as indicated. The patient's likely length of stay is 10-14 days. Coding Level of Care Code Acute Code for [facility] Diagnoses Schizophrenia F20.9 Schizoaffective disorder F25.9
[2023-03-30 14:00] VITALS: BP 157/105; PULSE 103; RESP 17; O2SAT 98
[2023-03-30 19:51] VITALS: BP 149/116; PULSE 94; RESP 20; O2SAT 98
--- NOTE | 2023-03-30 20:25 | PC.NURSE ---
AT NURSES STATION, PT PARTICIPATES IN ASSESSMENT. DENIES SI/HI AND AVH AT THIS TIME. RATES ANXIETY AND DEPRESSION 12/10. RN INFORMED PT THAT HE CAN HAVE MEDICATION TO HELP CALM HIM DOWN. PT STATED I GUESS BUT I DON'T THINK I REALLY NEED IT. PT WAS GIVEN SNACK AND DRINK THEN HE WENT TO ROOM. ALL QUESTIONS ANSWERED AND SUPPORT WAS VOICED.
[2023-03-31] MEDS: nicotine 2 mg Gum BUCCAL ×5 (00:38→22:45)
[2023-03-31] MEDS: OLANZapine 5 mg ODT PO (03:00)
--- NOTE | 2023-03-31 03:03 | PC.NURSE ---
PT IN DAY ROOM, RN CAN HEAR PT YELLING UP AT THE NURSES STATION. RN WENT TO DAY ROOM TO SEE WHY PT WAS YELLING. PT STATED YOU KNOW WHY I WANT A FUCKING CIGARETTE, SO WHY ARE YOU ASKING ME THAT SHIT.? RN INFORMED PT THAT WE HAVE ALREADY DISCUSSED THERE IS NO TOBACCO WHILE IN THE HOSPITAL BUT IF HE WOULD LIKE ANOTHER PIECE OF NICOTINE GUM THEN THIS RN WOULD GIVE HIM ONE. PT CONTINUED TO SIT IN CHAIR AND YELL OUT LOUDLY AND CUSS THIS RN. THIS RN WENT BACK TO NURSES STATION WHEN PT CAME BY, RN ASKED ARE YOU READY FOR THE GUM, OR YOU GOING TO BED. PT WENT OFF ON A TANGENT ABOUT YOU ALWAYS TRY TO CONTROL THE SITUATION I DON'T LIKE THAT. PT THEN WENT INTO A LENGTHY CONVOLUTED CONVERSATION ABOUT A CHEESEBURGER WITH BLANCAS AND TOMATO ON IT AND HOW THAT IS THE SAME THING A COWORKER GIVING HIM GUM. PT WAS ENCOURAGED TO GO TO HIS ROOM TO REST OR TO THE DAY ROOM DUE TO YELLING AND BEING LOUD, WAKING OTHER PATIENTS UP. PT DID EVENTUALLY GO TO CHAIR BY PHONE ACROSS FROM NURSES STATION AND SAT DOWN. PT DID STOP YELLING BRIEFLY. SECURITY CALLED FOR STANDBY IN CASE PT CONTINUES TO ESCALATE. SUPPORT WAS VOICED. CHOICES WERE GIVEN.
--- NOTE | 2023-03-31 04:05 | PC.NURSE ---
PT WAS ADMINISTERED ZYDIS 5 MG AT 0300 AM, PT STATES I GUESS I WILL TAKE SOME MORE NICOTINE, EVEN THOUGH ITS NOT GUM. RN ATTEMPTED TO RE*EDUCATE PT ON MEDICATION BUT PT WOULD NOT LISTEN. AT 0400 AM PT IS OBSERVED PACING TO ROOM AND BACK TO DAY ROOM, STOMPING VERY LOUDLY. PT CONTINUES TO BE REDIRECTED WITHOUT RESOLVE. PT ENCOURAGED TO REST OR WATCH TV, PT STATED I WILL DO WHAT I WANT. PT HAS BEEN OBSERVED STARRING INTO TV WHEN IT IS NOT ON, SPEAKING TO THE TV AND THEN WILL GO UP TO THE TV AND MAKES GESTURES, THEN PT WILL YELL AT THE TV. PT HAS ALSO BEEN OBSERVED TAKING HIS PANTS DOWN THEN WILL PULL HIS PANTS BACK UP, PT HAS REPEATED THIS SEVERAL TIMES THE PAST HOUR. PT HAS BEEN ENCOURAGED TO KEEP HIS PANTS PULLED AND INFORMED IF HE IS GOING TO PULL HIS PANTS DOWN HE NEEDS TO GO TO HIS ROOM, PT LOOKED AT NURSE AND THEN ROLLED HIS EYES. PT CONTINUES TO HAVE DELUSIONS, DISORGANIZED THINKING AND IMPAIRED THOUGHT PROCESS. SUPPORT WAS VOICED.
[2023-03-31 06:00] VITALS: BP 142/113; PULSE 123; RESP 20; TEMP 36.7; O2SAT 97
--- NOTE | 2023-03-31 06:06 | PC.NURSE ---
CONTINUES TO BE INTRUSIVE AT NURSES STATION, STANDS AT WINDOW AND SLURPS DRINK, CONSTANTLY ASKING FOR NICOTINE GUM AND FOOD. PT HAS EATEN SEVERAL SNACKS THIS SHIFT AND HAS HAD 10-12 LARGE CUPS OF LEMONADE AND FRUIT PUNCH. PT HAS ALSO EATEN 4 SANDWHICHES, 2 BAGS OF COOKIES, 4 PUDDINGS AND 4 BAGS OF CHIPS. PT WAS EDUCATED THAT THE SNACKS ARE FOR THE OTHER PTS TOO AND IF HE EATS ALL OF THEM THEN THEY WON'T HAVE A SNACK, PT RESPONDED, I DON'T CARE I'M HUNGRY. PT WAS ENCOURAGED TO GET UP FOR MEALS. SUPPORT VOICED.
--- NOTE | 2023-03-31 06:40 | PC.NURSE ---
PT HAS CONTINUED TO STAY AWAY THE MAJORITY OF NIGHT DESPITE RN GIVING PT ZYDIS 5 MG AT 0300 AM, PT REMAINS INTRUSIVE OBSTINATE TOWARDS STAFF. MEDICATION DEEMED INEFFECTIVE. PT DECLINES TAKING ANYMORE MEDICINE. SUPPORT VOICED.
--- NOTE | 2023-03-31 08:05 | W.PM.NPUPNS ---
Subjective NPU Subjective: Patient presented today reporting that we just need to let him leave. He has spent much of the morning by the window arguing the point that he should be discharged. He was suggesting that he had been here for over a year and that is why he needed to just be let go. We talked about the medication and the fact that we plan to initiate Abilify Maintena 400 mg IM as his second medication and that we were hopeful that he would continue the oral medication which she has discontinued and he continued to lament that he did not need medication. Mental Status Exam MSE Comments: This is a morbidly obese tall white male who appeared his stated age with poor eye contact and extremely poor hygiene. There was no evidence of any abnormal involuntary motor movements tics or tremors appreciated. There was continued psychomotor slowing. He was minimally cooperative with exam in mild to moderate distress on interview. Speech continued to show limited spontaneous speech with monotone quality with significant paucity of speech and continued evidence of increased speech latency. His mood was described as okay. His affect was blunted and odd. His thought process appeared linear. His thought content showed no evidence of homicidal or suicidal ideation. There was evident of concrete thinking. He did appear to be responding to internal stimuli. There was continued evidence of paranoid ideation. His recent and remote memory was impaired. His insight is impaired. His judgment is poor. His impulse control appeared impaired. He was alert and oriented to person and place but not date or time. Vitals/I&O/Wt Last Vital Signs Temp 98.1 F 03/31/23 06:00 Pulse 123 H 03/31/23 06:00 Resp 20 H 03/31/23 06:00 BP 142/113 03/31/23 06:00 Pulse Ox 97 03/31/23 06:00 O2 Del Method Room Air 03/31/23 06:00 Weight last 48 hrs Weight 189.602 kg Weight 189.602 kg A&P Assessment and plan (1) Schizophrenia: (2) Schizoaffective disorder: Plan 22-year-old male with a history of psychosis likely schizophrenia or schizoaffective disorder currently not taking his medications and actively psychotic. 1. Encourage individual, group and milieu therapy. 2. Recommend sober living treatment at the highest level of care to which the patient is willing to commit. 3. Continue q-15 minute checks for safety.? 4.?Patient on 90 day hold. Patient may benefit from clozaril therapy, but given agitation, aggression and need for frequent blood draws which patient refuses, this appears unlikely. . Continue Invega IM given.Both doses of invega IM given. Patient likely requires custodial treatment with potential need for guardianship. Started Abilify 10 mg p.o. daily aiming towards second long-acting injectable. Abilify Maintena 400 mg IM given today, 03/31/2023. Involuntary Hold Information 96 Hour Hold: 96 Hour Involuntary Admission: No Attestations NPU Medical Necessity Statement*: Inpatient hospitalization is medically necessary and deemed to be the clinically appropriate intervention at this time. The patient will be started on medications and medications will be titrated as indicated. The patient's likely length of stay is 10-14 days. Coding Level of Care Code Acute Code for [facility] Diagnoses Schizophrenia F20.9 Schizoaffective disorder F25.9
--- NOTE | 2023-03-31 09:09 | PC.OT ---
OT EVALUATION ORDERS RECEIVED FOR PERSONAL HYGIENE WAND. OT ONLY HAS THIS DEVICE FOR DEMONSTRATION TO PATIENTS. NURSING INFORMED AND IF ITEM NEEDED AND UNIT WANTS TO PURCHASE THAT THE ITEM COULD BE PURCHASED AT [facility]
[2023-03-31] MEDS: LORazepam 2 mg/mL INJ 1 mL IM (10:01)
[2023-03-31] MEDS: haloperidol inj 5 mg/mL INJ 1 mL 10 MG IM (10:01)
[2023-03-31] MEDS: diphenhydrAMINE 50 mg/mL SDV 1mL IM (10:02)
[2023-03-31] MEDS: ARIPiprazole Maintena 400 MG IM (10:06)
--- NOTE | 2023-03-31 12:00 | PC.NURSE ---
AT AROUND 0910 PT STARTED TO BECOME AGITATED DUE TO NOT BEING ABLE TO LEAVE. PT REQUESTED TO SPEAK WITH THE PHYSICIAN. DR. RAKEL LEIJA SPOKE WITH PT. PT ASKED PHYSICIAN YOU GONNA LET ME OUT TODAY? PHYSICIAN STATED THAT HE WOULD NOT BE ALLOWED TO LEAVE TODAY. PT BECAME MORE AGITATED AND ASKED WHY? PHYSICIAN EXPLAINED TO PT THAT HE HAS NOT BEEN TAKING HIS MEDICATIONS AND THAT HE WOULD NEED TO GET BETTER BEFORE HE WOULD BE ABLE TO LEAVE. PT WAS ALSO REEDUCATED THAT HE IS ON A 90 HOLD AND THAT HE CANNOT CHOSE TO LEAVE ON HIS OWN. THIS CONTINUED TO AGITATE PT FURTHER. THIS NURSE CONTACTED BACCARAT DEALER LITO RALPH AND REQUESTED BACK UP PT BEGAN PUSHING ON DOOR. PT STATED IF YOU GUYS DON'T LET ME OUT OF HERE I WILL FIGHT THE DOCTORS. PT THEN SEEN DR. LEIJA AND STATED NOT YOU MAN THE OTHER GUYS LET ME OUT OR IM GONNA FIGHT THE OTHER GUYS. WHEN BACCARAT DEALER LITO RALPH GOT TO THE FLOOR HE INFORMED STAFF THAT WE DID NOT HAVE MUCH BACK UP AND THE DECISION WAS MADE TO CALL THE [place] [employer]ICE DEPARTMENT. WHILE AWAITING FOR THE POLICE TO SHOW UP PT CONTINUED TO ESCALATE. PT BEGAN THROWING HIMSELF INTO THE DOOR IN ATTEMPTS TO ESCAPE. STAFF WAS PLACED ON OTHER SIDE OF THE DOOR TO PREVENT DAMAGE AND OR RELEASE OF THE DOOR. WHEN POLICE ARRIVED PT WAS ASKED TO STEP AWAY FROM THE DOOR WAY MULTIPLE TIMES. POLICE THREATENED TO TASE PT IF HE DID NOT STEP AWAY FROM THE DOORWAY. THIS MADE PT STEP AWAY. POLICE ENTERED THE UNIT AND POLICE ORDERED THE PT TO SIT AND PT SAT ON THE BENCH IN THE HALLWAY. DURING THIS THIS NURSE, DILCIA BAKER [employer] GOODS DRILL OPERATOR AND BUDDY NOGUERA RN HAD MEDICATIONS PULLED FOR SEDATION AND LONG ACTING INJECTABLE WHICH HAD BEEN ORDERED. THESE INCLUDED 10 MG IM HALDOL, 2 MG IM ATIVAN, 50 MG IM BENADRYL, AND 400 MG IM ABILIFY MAINTENNA. POLICE ATTEMPTED TO CONVINCE PT TO TAKE MEDICATIONS AND PT CONTINUED TO THREATEN HARM TO STAFF AND OFFICERS. POLICE OFFICERS DECIDED TO PLACE HAND CUFFS ON PT DUE TO CONTINUED RESISTANCE AND THREATS, PT WAS INFORMED OF THIS DECISION BY OFFICER AND THREATEN OFFICER. POLICE THREATENED TO TASE PT AGAIN. ONCE HANDCUFFS WERE PLACED PT ATTEMPTED TO FIGHT AND POLICE OFFICERS MADE PT LAY ON THE GROUND AND HELD BY POLICE OFFICERS AT THIS POINT PT WAS GIVEN MEDICATIONS BY STAFF. AFTER MEDICATION ADMINISTRATION PT WAS LIFTED FROM THE FLOOR AND TAKEN TO SECLUSION ROOM ESCORTED BY POLICE OFFICERS. ONCE PT ENTERED SECLUSION ROOM POLICE REMOVED HAND CUFFS AND SHUT THE DOOR SECLUSION STARTED AT 0955. AFTER BEING PLACED IN SECLUSION PT BECAME INCREASINGLY MORE VERBALLY AGGRESSIVE WITH STAFF AND THREATENING WITH STAFF. PT BEGAN PUNCHING PLEXI GLASS WINDOW AND YELLING AT PHYSICIAN. PT STATED I SHOULDN'T HAVE TO KILL PEOPLE WITH A PUNCH TO GET ATTENTION. THEN YELLED AT DR LEIJA STATING DON'T FUCKING TALK ABOUT MY FAMILY YOU STUPID HUNTER. PHYSICIAN STATED TO PT THAT HE WAS TRYING TO HELP HIM GET BETTER AND GET OUT BUT THAT HE WOULD HAVE TO WORK WITH HIM AND PT STATED YOU AREN'T HELPING ME YOU TERRI ALEXANDER LEAVE ME THE FUCK ALONE. STAFF STEP AWAY FROM THE DOOR TO HELP CALM PT DOWN AND 1:1 WAS WATCHING PT. PT WAS RELEASED FOR SECLUSION AT 1053.
[2023-03-31 14:00] VITALS: BP 111/68; PULSE 64; RESP 18; TEMP 36.4; O2SAT 95
--- NOTE | 2023-03-31 19:57 | PC.NURSE ---
Asked pt to obtain vital signs. pt refused vitals.
[2023-04-01] MEDS: nicotine 4 mg lozenge MUCOUS MEM ×3 (03:30→14:32)
[2023-04-01] MEDS: OLANZapine 5 mg ODT PO (03:31)
[2023-04-01] MEDS: ibuprofen 600 mg Tablet PO (04:12)
[2023-04-01] MEDS: haloperidol 5 mg Tablet PO (04:38)
--- NOTE | 2023-04-01 06:38 | PC.NURSE ---
Attempted to obtain patients vitals. Patient wanted to know why and it was explained to patient that these were the orders and to make sure his vitals are were they should be. Patient stated well sucks for them, no
[2023-04-01] MEDS: ARIPiprazole 10 mg Tablet PO (07:26)
--- NOTE | 2023-04-01 07:40 | PC.NURSE ---
sitting on bench. This nurse talked with patient. Patient stated that he got upset yesterday because he wanted to smoke and that he has been smoking for a long time. Patient stated that he recently lost his vape pen beneath his bed and wasn't able to reach it. This nurse presented patient with IVON garcia. Patient said I guess I should take this if I want to get out, huh? This nurse said that taking it would help. Patient took medication.
--- NOTE | 2023-04-01 07:45 | P.NPUPN_ITS ---
Subjective NPU Subjective: Patient presented today reporting he was doing better. Yesterday the [employer] [place] police came and had to assist the staff and maintaining his control as he was needing to de-escalate from attempting to break out of the unit. This morning however he was apologetic for his behaviors and sincerely expressing his feelings about his stay here and wanting some forgiveness about his choices from yesterday. We discussed that this was the most expressive conversation that we have had and that we really feel that the addition of the Abilify has the chance to get him out of here sooner if he will be adherent with it. He expressed appreciation for the efforts of the treatment team. Mental Status Exam MSE Comments: This is a morbidly obese tall white male who appeared his stated age with poor eye contact and extremely poor hygiene. There was no evidence of any abnormal involuntary motor movements tics or tremors appreciated. There was continued psychomotor slowing. He was more cooperative with exam in mild distress on interview. Speech was more spontaneous with monotone quality with less speech latency. His mood was described as okay. His affect was blunted and odd. His thought process appeared linear. His thought content showed no evidence of homicidal or suicidal ideation. There was less evidence of concrete thinking. He did appear to be responding less to internal stimuli. There was continued evidence of paranoid ideation. His recent and remote memory was improving. His insight is limited but improving. His judgment is poor. His impulse control appeared impaired. He was alert and oriented to person and place but not date or time. Vitals/I&O/Wt Last Vital Signs Temp 97.6 F 03/31/23 14:00 Pulse 64 03/31/23 14:00 Resp 18 03/31/23 14:00 BP 111/68 03/31/23 14:00 Pulse Ox 95 03/31/23 14:00 O2 Del Method Room Air 03/31/23 06:00 A&P Assessment and plan (1) Schizophrenia: (2) Schizoaffective disorder: Plan 22-year-old male with a history of psychosis likely schizophrenia or schizoaffective disorder currently not taking his medications and actively psychotic. 1. Encourage individual, group and milieu therapy. 2. Recommend sober living treatment at the highest level of care to which the patient is willing to commit. 3. Continue q-15 minute checks for safety.? 4.?Patient on 90 day hold. Patient may benefit from clozaril therapy, but given agitation, aggression and need for frequent blood draws which patient refuses, this appears unlikely. . Continue Invega IM given.Both doses of invega IM given. Patient likely requires [facility] treatment with potential need for guardianship. Started Abilify 10 mg p.o. daily aiming towards second long- acting injectable. Abilify Maintena 400 mg IM given today, 03/31/2023. Involuntary Hold Information 96 Hour Hold: 96 Hour Involuntary Admission: No Attestations NPU Medical Necessity Statement*: Inpatient hospitalization is medically necessary and deemed to be the clinically appropriate intervention at this time. The patient will be started on medications and medications will be titrated as indicated. The patient's likely length of stay is 10-14 days. Coding Level of Care Code Acute Code for [facility] Diagnoses Schizophrenia F20.9 Schizoaffective disorder F25.9
[2023-04-01 14:00] VITALS: BP 126/82; PULSE 86; RESP 18; TEMP 36.6; O2SAT 98
[2023-04-01 20:25] VITALS: RESP 20
--- NOTE | 2023-04-01 20:26 | PC.NURSE ---
Attempted to obtain patients vitals. Patient would not wake up to obtain. RR documented.
[2023-04-02] MEDS: nicotine 4 mg lozenge MUCOUS MEM ×2 (00:44→17:16)
[2023-04-02] MEDS: OLANZapine 5 mg ODT PO ×2 (03:18→22:15)
--- NOTE | 2023-04-02 05:27 | PC.NURSE ---
Patient behavior Patient is sitting on the bench by the nurses station singing loudly and demanding a cigarette. He was asked to go to the dayroom or patient room because others were sleeping and he refused. He is rambling and laughing as well.
[2023-04-02] MEDS: haloperidol 5 mg Tablet PO (05:35)
[2023-04-02] MEDS: nicotine 2 mg Gum BUCCAL ×4 (05:35→22:15)
--- NOTE | 2023-04-02 05:37 | PC.NURSE ---
Patient willingly took Haldol 5 mg po.
[2023-04-02 06:00] VITALS: RESP 20
--- NOTE | 2023-04-02 06:56 | PC.NURSE ---
Attempted to obtain patients vitals. Patient Refused. RR documented.
--- NOTE | 2023-04-02 08:05 | PC.NURSE ---
During morning assessment, patient stated that he is depressed because he is here. Patient denied SI, HI, AVH, and anxiety. This nurse discussed with patient the importance of being compliant with requests as a way of being released sooner rather than later.
[2023-04-02] MEDS: ARIPiprazole 10 mg Tablet PO (08:27)
[2023-04-02 14:00] VITALS: RESP 16
--- NOTE | 2023-04-02 17:13 | P.NPUPN_ITS ---
Subjective NPU Subjective: Patient presented today reporting that he is doing fine. He had some disruption in his sleep wake cycle and spent significant portions of the day isolated in his room. He continued to be more pleasant and less negative. He denied any new or pressing issues. He denied any side effects of the medication. Mental Status Exam MSE Comments: This is a morbidly obese tall white male who appeared his stated age with poor eye contact and extremely poor hygiene. There was no evidence of any abnormal involuntary motor movements tics or tremors appreciated. There was continued psychomotor slowing. He was more cooperative with exam in mild distress on interview. Speech was more spontaneous with monotone quality with less speech latency. His mood was described as okay. His affect was blunted and odd. His thought process appeared linear. His thought content showed no evidence of homicidal or suicidal ideation. There was less evidence of concrete thinking. He did appear to be responding less to internal stimuli. There was continued evidence of paranoid ideation. His recent and remote memory was improving. His insight is limited but improving. His judgment is poor. His impulse control appeared impaired. He was alert and oriented to person and place but not date or time. Vitals/I&O/Wt Last Vital Signs Temp 98 F 04/01/23 14:00 Pulse 86 04/01/23 14:00 Resp 20 H 04/02/23 06:00 BP 126/82 04/01/23 14:00 Pulse Ox 98 04/01/23 14:00 O2 Del Method Room Air 03/31/23 06:00 A&P Assessment and plan (1) Schizophrenia: (2) Schizoaffective disorder: Plan 22-year-old male with a history of psychosis likely schizophrenia or schizoaffective disorder currently not taking his medications and actively psychotic. 1. Encourage individual, group and milieu therapy. 2. Recommend sober living treatment at the highest level of care to which the patient is willing to commit. 3. Continue q-15 minute checks for safety.? 4.?Patient on 90 day hold. Patient may benefit from clozaril therapy, but given agitation, aggression and need for frequent blood draws which patient refuses, this appears unlikely. . Continue Invega IM given.Both doses of invega IM given. Patient likely requires retirement treatment with potential need for guardianship. Started Abilify 10 mg p.o. daily aiming towards second long- acting injectable. Abilify Maintena 400 mg IM given today, 03/31/2023. Involuntary Hold Information 96 Hour Hold: 96 Hour Involuntary Admission: No Attestations NPU Medical Necessity Statement*: Inpatient hospitalization is medically necessary and deemed to be the clinically appropriate intervention at this time. The patient will be started on medications and medications will be titrated as indicated. The patient's likely length of stay is 10-14 days. Coding Level of Care Code Acute Code for [facility] Diagnoses Schizophrenia F20.9 Schizoaffective disorder F25.9
--- NOTE | 2023-04-02 17:16 | PC.NURSE ---
ADMINISTERED NICOTINE LOZENGE EARLIER THAN ORDERED, WITH VERBAL PERMISSION FROM DR. LEIJA.
--- NOTE | 2023-04-02 18:29 | PC.NURSE ---
PT REFUSED 1400 VITALS. RESP WERE OBTAINED AT 16. WILL CONTINUE TO MONITOR.
--- NOTE | 2023-04-02 22:11 | PC.NURSE ---
Attempted to obtain vitals from patient. Patient would not wake up to obtain.
[2023-04-03 06:00] VITALS: BP 124/84; PULSE 90; RESP 20; TEMP 36.9; O2SAT 95
--- NOTE | 2023-04-03 06:32 | PC.NURSE ---
PT WAS ADMINISTERED ZYDIS 5 MG AT 2215 LAST NIGHT FOR INCREASED ANXIETY AND WANTING TO SMOKE. MEDICATION DEEMED EFFECTIVE PT WAS ABLE TO CALM AND SLEPT APPROXIMATELY 5-6 HOURS INTERMITTENTLY THROUGH OUT THE NIGHT.
[2023-04-03] MEDS: nicotine 2 mg Gum BUCCAL ×6 (07:08→18:31)
[2023-04-03] MEDS: ARIPiprazole 10 mg Tablet PO (08:41)
[2023-04-03] MEDS: nicotine 4 mg lozenge MUCOUS MEM (12:08)
[2023-04-03 13:44] VITALS: BP 146/86; PULSE 86; RESP 17; O2SAT 98
--- NOTE | 2023-04-03 13:50 | W.PM.NPUPNS ---
Subjective NPU Subjective: Patient presented today reporting that he was doing okay. He was much more expressive in conversation today and at 1 point laughed for the first time in the 45 days he has been here that this marketing writer has seen. He denied any side effects of the medication. Staff report noting some increase in his interaction and much less isolation. Mental Status Exam MSE Comments: This is a morbidly obese tall white male who appeared his stated age with poor eye contact and extremely poor hygiene. There was no evidence of any abnormal involuntary motor movements tics or tremors appreciated. There was continued psychomotor slowing. He was more cooperative with exam in mild distress on interview. Speech was more spontaneous with monotone quality with less speech latency. His mood was described as okay. His affect was brighter and had greater range. His thought process appeared linear. His thought content showed no evidence of homicidal or suicidal ideation. There was less evidence of concrete thinking. He did appear to be responding less to internal stimuli. There was continued evidence of paranoid ideation. His recent and remote memory was improving. His insight is limited but improving. His judgment is poor. His impulse control appeared impaired. He was alert and oriented to person and place but not date or time. Vitals/I&O/Wt Last Vital Signs Temp 98.5 F 04/03/23 06:00 Pulse 86 04/03/23 13:44 Resp 17 04/03/23 13:44 BP 146/86 04/03/23 13:44 Pulse Ox 98 04/03/23 13:44 O2 Del Method Room Air 04/03/23 06:00 A&P Assessment and plan (1) Schizophrenia: (2) Schizoaffective disorder: Plan 22-year-old male with a history of psychosis likely schizophrenia or schizoaffective disorder currently not taking his medications and actively psychotic. 1. Encourage individual, group and milieu therapy. 2. Recommend sober living treatment at the highest level of care to which the patient is willing to commit. 3. Continue q-15 minute checks for safety.? 4.?Patient on 90 day hold. Patient may benefit from clozaril therapy, but given agitation, aggression and need for frequent blood draws which patient refuses, this appears unlikely. . Continue Invega IM given.Both doses of invega IM given. Patient likely requires terminal supervisor treatment with potential need for guardianship. Started Abilify 10 mg p.o. daily aiming towards second long-acting injectable. Abilifelda Maintena 400 mg IM given today, 03/31/2023. Involuntary Hold Information 96 Hour Hold: 96 Hour Involuntary Admission: No Attestations NPU Medical Necessity Statement*: Inpatient hospitalization is medically necessary and deemed to be the clinically appropriate intervention at this time. The patient will be started on medications and medications will be titrated as indicated. The patient's likely length of stay is 10-14 days. Coding Level of Care Code Acute Code for [facility] Fwd Diagnoses Schizophrenia F20.9 Schizoaffective disorder F25.9
[2023-04-04] MEDS: nicotine 2 mg Gum BUCCAL ×6 (07:29→18:53)
--- NOTE | 2023-04-04 08:56 | PC.NURSE ---
Patient denies avh and si/hi this morning. When asked how he felt this morning he replied, like a box of chocolates. Patient also said he felt it was better to be alive than out of it. He then came to the bench near the nurses' station and began conversating with another patient.
[2023-04-04] MEDS: ARIPiprazole 10 mg Tablet PO (09:49)
[2023-04-04 14:00] VITALS: BP 141/84; PULSE 101; RESP 20; TEMP 36.5; O2SAT 93
--- NOTE | 2023-04-04 14:58 | P.NPUPN_ITS ---
Subjective NPU Subjective: Patient presented today reporting that he is doing well. Today was another good day similar to the day before where he was not having any problems and that he did take his medication. He reports that he enjoys music a lot and we discussed his improvement and being hopeful that with continued adherence to the medication that discharge could be sooner rather than later. He denied any side effects to the medications. Mental Status Exam MSE Comments: This is a morbidly obese tall white male who appeared his stated age with poor eye contact and extremely poor hygiene. There was no evidence of any abnormal involuntary motor movements tics or tremors appreciated. There was continued psychomotor slowing. He was more cooperative with exam in mild distress on interview. Speech was more spontaneous with monotone quality with less speech latency. His mood was described as okay. His affect was brighter and had greater range. His thought process appeared linear. His thought content showed no evidence of homicidal or suicidal ideation. There was less evidence of concrete thinking. He did appear to be responding less to internal stimuli. There was continued evidence of paranoid ideation. His recent and remote memory was improving. His insight is limited but improving. His judgment is poor. His impulse control appeared impaired. He was alert and oriented to person and place but not date or time. Vitals/I&O/Wt Last Vital Signs Temp 98.5 F 04/03/23 06:00 Pulse 86 04/03/23 13:44 Resp 17 04/03/23 13:44 BP 146/86 04/03/23 13:44 Pulse Ox 98 04/03/23 13:44 O2 Del Method Room Air 04/03/23 06:00 A&P Assessment and plan (1) Schizophrenia: (2) Schizoaffective disorder: Plan 22-year-old male with a history of psychosis likely schizophrenia or schizoaffective disorder currently not taking his medications and actively psychotic. 1. Encourage individual, group and milieu therapy. 2. Recommend sober living treatment at the highest level of care to which the patient is willing to commit. 3. Continue q-15 minute checks for safety.? 4.?Patient on 90 day hold. Patient may benefit from clozaril therapy, but given agitation, aggression and need for frequent blood draws which patient refuses, this appears unlikely. . Continue Invega IM given.Both doses of invega IM given. Patient likely requires snf treatment with potential need for guardianship. Started Abilify 10 mg p.o. daily aiming towards second long- acting injectable. Abilify Maintena 400 mg IM given today, 03/31/2023. Involuntary Hold Information 96 Hour Hold: 96 Hour Involuntary Admission: No Attestations NPU Medical Necessity Statement*: Inpatient hospitalization is medically necessary and deemed to be the clinically appropriate intervention at this time. The patient will be started on medications and medications will be titrated as indicated. The patient's likely length of stay is 10-14 days. Coding Level of Care Code Acute Code for [facility] Fwd Diagnoses Schizophrenia F20.9 Schizoaffective disorder F25.9
[2023-04-04 20:58] VITALS: RESP 18
--- NOTE | 2023-04-04 20:58 | PC.NURSE ---
Attempted to obtain patients vitals. Due to patient deep sleeping unable to obtain vitals. RR documented.
[2023-04-05] MEDS: nicotine 2 mg Gum BUCCAL ×3 (04:07→18:20)
--- NOTE | 2023-04-05 06:40 | PC.NURSE ---
Due to patients manic behavior vitals were not obtained. Charge nurse informed.
--- NOTE | 2023-04-05 08:52 | PC.NURSE ---
PT CURRENTLY ENDORSES FEELING ANXIOUS AND DEPRESSED. WHEN ASKED TO RATE THEM ON A SCALE OF 0-10 PT STATED I WOULD RATE IT A 10 ON THE LONELINESS SCALE. WHEN ASKED IF PT WAS SEEING OR HEARING THINGS THAT THEY DID NOT BELIEVE WERE THERE PT STATED YEAH I HAVE SEEN PEOPLE THAT I SUPPOSE COULD BE PERCEIVED NOT BEING THERE. WHEN ASKED ABOUT IF THE PT IS THINKING OF HURTING HIMSELF OR OTHER PT STATED WELL IT IS HARD TO SAY, PEOPLE KEEP DOING THINGS WRONG OR TEETERING ON THE WRONG THING. PT DENIES WANT FOR PRN. 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 PT CURRENT NEEDS ARE MET AT THIS TIME.
[2023-04-05] MEDS: diphenhydrAMINE 50 mg/mL SDV 1mL IM (09:30)
[2023-04-05] MEDS: LORazepam 2 mg/mL INJ 1 mL IM (09:30)
[2023-04-05] MEDS: haloperidol inj 5 mg/mL INJ 1 mL 10 MG IM (09:30)
--- NOTE | 2023-04-05 10:50 | PC.NURSE ---
AT AROUND 0900 PT BEGAN BECOMING AGITATED ABOUT NOT BEING ABLE TO LEAVE. PT WAS EDUCATED THAT WE DO NOT HAVE HIS DISCHARGE FOR TODAY. STAFF ATTEMPTED MULTIPLE DIFFERENT ATTEMPTS OF REDIRECTION. PT CONTINUED TO REPEAT NAH MAN, Y'ALL JUST NEED TO LET ME OUT. PT CONTINUED TO ESCALATE. THIS NURSE ASKED JOAQUIN NOGUERA RN TO CONTACT DRUPAL DEVELOPER ALBERTO CA. ALBERTO CA REPORTED TO FLOOR AND CONTACTED KINJAL RALPH [employer] CONSULTANT ASKING IF THERE WAS ANY OTHER MALE ASSISTANCE IN THE HOSPITAL. THERE WAS ONLY ONE OTHER MAN IN THE BUILDING WHO THEN REPORTED TO THE UNIT TERESITA RODRIGUEZ RN. PHYSICIAN WAS INFORMED OF PT BEHAVIOR AND ORDERED STAFF TO GIVE 10 MG OF IM HALDOL, 2 MG IM ATIVAN, AND 50 MG IM BENADRYL. WHILE THIS NURSE WAS DRAWING UP MEDICATIONS PT THREW A CUP OF COFFEE ON TO KINJAL RALPH AND TERESITA RODRIGUEZ RN AND IT WAS DECIDED THAT THE [employer] WOULD BE CONTACTED FOR MORE ASSISTANCE. THIS NURSE ASKED PT IF HE WOULD BE WILLING TO TAKE THE MEDICATIONS AND PT STATED NO ITS NOT NECESSARY MAN, ILL HIT THEM IF THEY COME OUT HERE. WHEN THE POLICE SHOWED UP PT STATED TO STAFF I WILL TAKE THE SHOTS BUT HEY ARE USELESS. PT WILLINGLY TOOK THE MEDICATIONS WITH POLICE PRESENCE. PT THEN WENT TO HIS ROOM. PT CURRENT NEEDS ARE MET AT THIS TIME.
--- NOTE | 2023-04-05 11:19 | W.PM.NPUPNS ---
Subjective NPU Subjective: Patient presented today reporting that he is doing all right. He has not expressing any negative thoughts or acting in any ill way compared to this morning. He is reporting that he is just frustrated and wants to leave soon as he can. We discussed him slowly improving and is wanting to ensure he is stable enough to continue the success moving forward when we discharge. He denied any specific side effects to the medication. Mental Status Exam MSE Comments: This is a morbidly obese tall white male who appeared his stated age with poor eye contact and extremely poor hygiene. There was no evidence of any abnormal involuntary motor movements tics or tremors appreciated. There was continued psychomotor slowing. He was more cooperative with exam in mild distress on interview. Speech was more spontaneous with monotone quality with less speech latency. His mood was described as okay. His affect was brighter and had greater range. His thought process appeared linear. His thought content showed no evidence of homicidal or suicidal ideation. There was less evidence of concrete thinking. He did appear to be responding less to internal stimuli. There was continued evidence of paranoid ideation. His recent and remote memory was improving. His insight is limited but improving. His judgment is poor. His impulse control appeared impaired. He was alert and oriented to person and place but not date or time. Vitals/I&O/Wt Last Vital Signs Temp 97.7 F 04/04/23 14:00 Pulse 101 H 04/04/23 14:00 Resp 18 04/04/23 20:58 BP 141/84 04/04/23 14:00 Pulse Ox 93 04/04/23 14:00 O2 Del Method Room Air 04/03/23 06:00 A&P Assessment and plan (1) Schizophrenia: (2) Schizoaffective disorder: Plan 22-year-old male with a history of psychosis likely schizophrenia or schizoaffective disorder currently not taking his medications and actively psychotic. 1. Encourage individual, group and milieu therapy. 2. Recommend sober living treatment at the highest level of care to which the patient is willing to commit. 3. Continue q-15 minute checks for safety.? 4.?Patient on 90 day hold. Patient may benefit from clozaril therapy, but given agitation, aggression and need for frequent blood draws which patient refuses, this appears unlikely. . Continue Invega IM given.Both doses of invega IM given. Patient likely requires case management associate treatment with potential need for guardianship. Started Abilify 10 mg p.o. daily aiming towards second long-acting injectable. Abilify Maintena 400 mg IM given today, 03/31/2023. He continues to take the oral medication which will assist in getting up to a stable dose. This morning 04/05/2023 he did refuse medication and have some aggression mostly verbal and was having reports from staff that he was being cozy with the door/exit last night. Police were called for backup for the first time in nearly a week. Involuntary Hold Information 96 Hour Hold: 96 Hour Involuntary Admission: No Attestations NPU Medical Necessity Statement*: Inpatient hospitalization is medically necessary and deemed to be the clinically appropriate intervention at this time. The patient will be started on medications and medications will be titrated as indicated. The patient's likely length of stay is 10-14 days. Coding Level of Care Code Acute Code for [facility] Fwd Diagnoses Schizophrenia F20.9 Schizoaffective disorder F25.9
[2023-04-05 14:00] VITALS: BP 127/82; PULSE 83; RESP 20; TEMP 36.4; O2SAT 97
[2023-04-05 20:29] VITALS: BP 139/90; PULSE 95; RESP 18; TEMP 36.9; O2SAT 95
--- NOTE | 2023-04-05 22:08 | PC.NURSE ---
PT DEMANDING COFFEE AT 1900 AT NIGHT. PT WAS REDIRECTED AND RE-EDUCATED THAT COFFEE ENDS AT 1500. VERBALIZED UNDERSTANDING. PT OBSERVED WITH FLAT AFFECT AND ANXIOUS MOOD. DENIES PAIN, SI/HI AND AVH AT THIS TIME. PT WAS GIVEN A DRINK AND SNACK AND PT THEN WENT TO DAY ROOM ATE IT AND THEN WENT TO BED TO LAY DOWN. ALL QUESTIONS ANSWERED AND SUPPORT WAS VOICED.
[2023-04-06] MEDS: nicotine 2 mg Gum BUCCAL ×5 (05:27→20:32)
[2023-04-06] MEDS: OLANZapine 5 mg ODT PO ×2 (05:27→20:32)
--- NOTE | 2023-04-06 05:28 | PC.NURSE ---
PT UP WANTING NICOTINE AND SOMETHING TO MAKE ME FEEL BETTER. PT WAS GIVEN NICOTINE GUM AND ZYDIS 5 MG ORDERED FOR ANXIETY. PT TOOK MEDICATION AND GUM AND WENT BACK TO BED. SUPPORT WAS VOICED.
[2023-04-06 06:00] VITALS: BP 148/99; PULSE 96; RESP 20; TEMP 36.4; O2SAT 95
[2023-04-06 06:01] VITALS: BMI 66.2
[2023-04-06] MEDS: ARIPiprazole 10 mg Tablet PO (08:58)
--- NOTE | 2023-04-06 10:09 | P.NPUPN_ITS ---
Subjective NPU Subjective: Patient presented today reporting that he is doing better. He has been less isolative today per staff reports and direct observation. We continued to discuss the time frame to his discharge. He denied any specific side effects to the medication. Mental Status Exam MSE Comments: This is a morbidly obese tall white male who appeared his stated age with poor eye contact and extremely poor hygiene. There was no evidence of any abnormal involuntary motor movements tics or tremors appreciated. There was continued psychomotor slowing. He was more cooperative with exam in mild distress on interview. Speech was more spontaneous with monotone quality with less speech latency. His mood was described as okay. His affect was brighter and had greater range. His thought process appeared linear. His thought content showed no evidence of homicidal or suicidal ideation. There was less evidence of concrete thinking. He did appear to be responding less to internal stimuli. There was continued evidence of paranoid ideation. His recent and remote memory was improving. His insight is limited but improving. His judgment is poor. His impulse control appeared impaired. He was alert and oriented to person and place but not date or time. Vitals/I&O/Wt Last Vital Signs Temp 97.6 F 04/06/23 06:00 Pulse 96 04/06/23 06:00 Resp 20 H 04/06/23 06:00 BP 148/99 04/06/23 06:00 Pulse Ox 95 04/06/23 06:00 O2 Del Method Room Air 04/06/23 06:00 Weight last 48 hrs Weight 209.276 kg A&P Assessment and plan (1) Schizophrenia: (2) Schizoaffective disorder: Plan 22-year-old male with a history of psychosis likely schizophrenia or schizoaffective disorder currently not taking his medications and actively psychotic. 1. Encourage individual, group and milieu therapy. 2. Recommend sober living treatment at the highest level of care to which the patient is willing to commit. 3. Continue q-15 minute checks for safety.? 4.?Patient on 90 day hold. Patient may benefit from clozaril therapy, but given agitation, aggression and need for frequent blood draws which patient refuses, this appears unlikely. . Continue Invega IM given.Both doses of invega IM given. Patient likely requires fpc treatment with potential need for guardianship. Started Abilify 10 mg p.o. daily aiming towards second long- acting injectable. Abilify Maintena 400 mg IM given today, 03/31/2023. He continues to take the oral medication which will assist in getting up to a stable dose. This morning 04/05/2023 he did refuse medication and have some aggression mostly verbal and was having reports from staff that he was being cozy with the door/exit 04/04/2023. Police were called for backup for the first time in nearly a week. Pt had a tough morning 04/06/2023 but was able to be redirected. Involuntary Hold Information 96 Hour Hold: 96 Hour Involuntary Admission: No Attestations NPU Medical Necessity Statement*: Inpatient hospitalization is medically necessary and deemed to be the clinically appropriate intervention at this time. The patient will be started on medications and medications will be titrated as indicated. The patient's likely length of stay is 10-14 days. Coding Level of Care Code Acute Code for [facility] Fwd Diagnoses Schizophrenia F20.9 Schizoaffective disorder F25.9
[2023-04-06 14:00] VITALS: BP 144/102; PULSE 107; RESP 18; TEMP 36.6; O2SAT 93
--- NOTE | 2023-04-06 17:51 | PC.NURSE ---
PT IS REQUESTING CIGARETTES, PT IS RESISTANT TO LEARNING THAT CIGARETTES ARE NOT ALLOWED ON THE UNIT AND THAT STAFF DOES NOT HAVE ANY. PT CONTINUES TO REPEAT THAT HE NEEDS CIGARETTES MAN . PT STATES THAT BEING WITHOUT CIGARETTES IS DAMAGING HIS LUNGS AND THAT THE PLATE IN HIS HEAD IS CLICKING TELLING HIM THERE HAS BEEN DAMAGE TO HIS LUNGS. STAFF REDIRECTION CONTINUES AND PT HAS NOT BECOME VIOLENT. PT CONTINUES CONVERSATION WHILE AVLC6IS TO CONVINCE STAFF TO LET HIM LEAVE TO SMOKE THEN COME BACK. SUPPER ARRIVED AND PT BEGAN TO EAT SUPPER.
--- NOTE | 2023-04-06 18:25 | PC.NURSE ---
PT IS CURRENTLY NEAR THE NURSES STATION REQUESTING CIGARETTES. STAFF CONTINUES TO ATTEMPT EDUCATION ABOUT NOT BEING ABLE TO HAVE CIGARETTES ON THE UNIT AND NOT BEING ABLE TO LET PTS OFF THE UNIT. PT TOLD THIS NURSE THAT HE HAS BEEN HERE FOR 2 YEARS. THIS NURSE EXPLAINED TO PT THAT HE HAS ONLY BEEN HERE FOR 49 DAYS AND PT STATED YEAH WELL HOW LONG IS THAT BACKWARDS, IT IS LIKE 3 YEARS SO YEAH, I HAVE BEEN HERE FOR LIKE 4 YEARS MAN PT IS RESISTANT TO LEARNING AND UNABLE TO COMPREHEND AT THIS TIME.
[2023-04-06 20:10] VITALS: BP 157/111; PULSE 118; RESP 18; TEMP 36.6; O2SAT 95
--- NOTE | 2023-04-06 21:56 | PC.NURSE ---
PT AT NURSES STATION AND IS INTRUSIVE DEMANDING STAFF LET HIM SMOKE RIGHT NOW. PT HAS BEEN REDIRECTED MULTIPLE TIMES BUT CONTINUES TO ASK STAFF I KNOW YOU HAVE MY CIGGERRETTES BACK THERE SO GO AND GET THEM AND LET ME SMOKE. PT WAS GIVING NICOTINE GUM REQUESTED AND ZYDIS 5 MG ORDERED FOR INCREASED ANXIETY AND AGGRESSIVE BEHAVIORS. PT DID ATTEMPT TO HIT THE DOOR AND STATED JUST LET ME LEAVE. RN SET BOUNDERIES AND INFORMED PT THAT WE ARE NOT DOING THIS AGAIN, PT WAS GIVEN THE CHOICE TO GO AND WATCH TV WITH A SNACK OR GO TO BED TO LAY DOWN. PT DECIDED TO GO TO ROOM WHERE HE CURRENTLY IS RESTING. PT DENIES PAIN. DENIES SI/HI AND AVH AT THIS TIME. RATES ANXIETY AND DEPRESSION 10/10 DUE TO NOT BEING ALLOWED TO SMOKE. ALL QUESTIONS WERE ANSWERED AND SUPPORT Was VOICED.
--- NOTE | 2023-04-07 04:59 | PC.NURSE ---
PT WAS GIVEN ZYDIS 5 MG EARLIER IN THE SHIFT. PT HAS SLEPT APPROXIMATELY 8 HOURS LAST SHIFT AND SHOWS SIGNS OF DECREASED ANXIETY. MEDICATION DEEMED EFFECTIVE. PT CONTINUES TO REST AT THIS TIME.
[2023-04-07 06:00] VITALS: BP 130/92; PULSE 71; RESP 15; TEMP 36.4; O2SAT 98
[2023-04-07] MEDS: nicotine 4 mg lozenge MUCOUS MEM (06:34)
--- NOTE | 2023-04-07 08:15 | W.PM.NPUPNS ---
Subjective NPU Subjective: Patient presented today reporting that he is doing all right. We discussed seeing improvements in his interaction. Staff report him requesting his toiletries to shower now on a couple occasions in the past couple days which is a significant improvement. Otherwise he denied any side effects to medications and continues to have subtle but steady improvement. Mental Status Exam MSE Comments: This is a morbidly obese tall white male who appeared his stated age with poor eye contact and extremely poor hygiene. There was no evidence of any abnormal involuntary motor movements tics or tremors appreciated. There was continued psychomotor slowing. He was more cooperative with exam in mild distress on interview. Speech was more spontaneous with monotone quality with less speech latency. His mood was described as okay. His affect was brighter and had greater range. His thought process appeared linear. His thought content showed no evidence of homicidal or suicidal ideation. There was less evidence of concrete thinking. He did appear to be responding less to internal stimuli. There was continued evidence of paranoid ideation. His recent and remote memory was improving. His insight is limited but improving. His judgment is poor. His impulse control appeared impaired. He was alert and oriented to person and place . Vitals/I&O/Wt Last Vital Signs Temp 97.5 F L 04/07/23 06:00 Pulse 71 04/07/23 06:00 Resp 15 04/07/23 06:00 BP 130/92 04/07/23 06:00 Pulse Ox 98 04/07/23 06:00 O2 Del Method Room Air 04/07/23 06:00 Weight last 48 hrs Weight 209.276 kg A&P Assessment and plan (1) Schizophrenia: (2) Schizoaffective disorder: Plan 22-year-old male with a history of psychosis likely schizophrenia or schizoaffective disorder currently not taking his medications and actively psychotic. 1. Encourage individual, group and milieu therapy. 2. Recommend sober living treatment at the highest level of care to which the patient is willing to commit. 3. Continue q-15 minute checks for safety.? 4.?Patient on 90 day hold. Patient may benefit from clozaril therapy, but given agitation, aggression and need for frequent blood draws which patient refuses, this appears unlikely. . Continue Invega IM given.Both doses of invega IM given. Patient likely requires prison treatment with potential need for guardianship. Started Abilify 10 mg p.o. daily aiming towards second long-acting injectable. Abilify Maintena 400 mg IM given today, 03/31/2023. He continues to take the oral medication which will assist in getting up to a stable dose. This morning 04/05/2023 he did refuse medication and have some aggression mostly verbal and was having reports from staff that he was being cozy with the door/exit 04/04/2023. Police were called for backup for the first time in nearly a week. Pt had a tough morning 04/06/2023 but was able to be redirected. Involuntary Hold Information 96 Hour Hold: 96 Hour Involuntary Admission: No Attestations NPU Medical Necessity Statement*: Inpatient hospitalization is medically necessary and deemed to be the clinically appropriate intervention at this time. The patient will be started on medications and medications will be titrated as indicated. The patient's likely length of stay is 10-14 days. Coding Level of Care Code Acute Code for [facility] Fwd Diagnoses Schizophrenia F20.9 Schizoaffective disorder F25.9
[2023-04-07] MEDS: nicotine 2 mg Gum BUCCAL ×5 (08:26→17:20)
--- NOTE | 2023-04-07 08:59 | PC.NURSE ---
Patient denies avh and si/hi. When asked if he was feeling depressed he stated, nah. Things should be better. In a week or 2 it'll be a lot better. I just struggle in this atmosphere. Patient then had a logical conversation with this nurse about where he grew up and stated that [place] was his favorite place to be.
[2023-04-07] MEDS: ARIPiprazole 10 mg Tablet PO (10:14)
[2023-04-07] MEDS: haloperidol 5 mg Tablet PO (10:56)
--- NOTE | 2023-04-07 12:07 | PC.NURSE ---
After showering on the north side, patient sat on the bench. Patient stated to this nurse that he didn't want to return to the other side. This nurse educated patient on needing to return to south side because it is the location of his bed. Patient said, Nah I'm alright, I think I'm gonna stay over here. Patient went on to say that he didn't think he could make it over to the otherside because of his head and the wheels in his head. This nurse stated that she would assist him to the other side. Patient said, nah, it's against the policy . Patient got off of the bench and made his way toward the door, but instead of going right, patient entered the dayroom and sat down. This nurse sat with patient. Patient did not appear to be distressed. Charley R and RD arrived and were able to convince patient to return to south side.
[2023-04-07 13:59] VITALS: BP 149/81; PULSE 90; RESP 17; TEMP 36.8; O2SAT 97
[2023-04-07 20:57] VITALS: BP 124/75; PULSE 82; RESP 18; O2SAT 96
--- NOTE | 2023-04-07 21:52 | PC.NURSE ---
RESTING IN BED. DENIES PAIN. DENIES SI/HI AND AVH AT THIS TIME. RATES ANXIETY AND DEPRESSION /. STATES HE JUST WANTS TO SLEEP. PT ENCOURAGED TO REST. ALL QUESTIONS ANSWERED AND SUPPORT WAS VOICED.
--- NOTE | 2023-04-08 04:35 | PC.NURSE ---
IN DAY ROOM AGGITATED AND UNCOOPERATIVE WITH STAFF. PT YELLING DOWN THE RAMIREZ AND STATES I HOPE I WAKE THEM ALL UP, PT HAS BEEN REDIRECTED MULTIPLE TIMES. PT HAD A BM IN HIS PANTS AND WAS DIRECTED TO GET HIS PANTS SO THIS RN COULD PLACE THEM IN THE LAUNDRY BAG TO BE CLEANED. PT STATED, NO YOU CAN GET A GLOVE ON AND GO LINEN SUPERVISOR MY SHITTY PANTS. I'M NOT DOING IT. PT WAS GIVEN A GOWN TO WEAR TO COVER SELF. PT CONTINUES TO SIT IN DAY ROOM AND YELL OUT AT STAFF. PT WAS EDUCATED THAT STAFF WOULD NOT GO GET HIS DIRTY PANTS OUT OF THE FLOOR, THAT HE NEEDS TO LINEN SUPERVISOR AFTER SELF SO THE DR. CAN OBSERVE THAT HE IS GETTING BETTER AN CAN TAKE CARE OF HIMSELF. PT AGAIN STATED I SAID YOU ALL CAN ALL GET MY SHITTY PANTS. PT DID EVENTUALLY GO GET PANTS AND PLACED IN LINEN BAG SO RN COULD TAKE TO LAUNDRY. PT DID EVENTUALLY CALM AND WAS GIVEN LEMONAIDE AND A SNACK. SUPPORT WAS VOICED.
[2023-04-08] MEDS: nicotine 4 mg lozenge MUCOUS MEM (04:37)
[2023-04-08] MEDS: OLANZapine 5 mg ODT PO (04:41)
[2023-04-08 06:00] VITALS: BP 159/101; PULSE 90; RESP 18; TEMP 36.4; O2SAT 96
[2023-04-08] MEDS: nicotine 2 mg Gum BUCCAL ×4 (11:10→18:45)
--- NOTE | 2023-04-08 11:28 | PC.NURSE ---
this nurse attempted to have patient take abilify medication. Patient refused each time, saying nah, I'm not taking that and that will make it worse
[2023-04-08 14:00] VITALS: BP 154/84; PULSE 102; RESP 15; TEMP 36.4; O2SAT 96
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
[2023-04-08] MEDS: diphenhydrAMINE 50 mg/mL SDV 1mL IM (19:38)
[2023-04-08] MEDS: LORazepam 2 mg/mL INJ 1 mL IM (19:38)
[2023-04-08] MEDS: haloperidol inj 5 mg/mL INJ 1 mL 10 MG IM (19:38)
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
[2023-04-09 06:00] VITALS: RESP 18
--- NOTE | 2023-04-09 06:26 | PC.NURSE ---
Due to patients aggressive behavior. RR were obtain and let patient rest. Charge nurse notified.
[2023-04-09] MEDS: ARIPiprazole 10 mg Tablet PO (08:44)
[2023-04-09] MEDS: nicotine 2 mg Gum BUCCAL ×4 (08:45→18:18)
--- NOTE | 2023-04-09 08:49 | PC.NURSE ---
During morning shift assessment, patient stated that he is fine. When asked about the CODE 10 situation that occurred last night, patient stated I just kind of got on one of those medicine things. Patient denied anxiety, depression, SI, HI, AVH.
--- NOTE | 2023-04-09 13:15 | W.PM.NPUPNS ---
Subjective NPU Subjective: Patient presents today reporting that he is doing better since yesterday evening. A code 10 was called and afterwards police were called given his level of resistance. Once they were here however he ultimately comply with the request. He allowed as needed injections to be administered with no physical resistance and then he walked himself to seclusion and spent some time in there. He reports feeling better today and could not really identify what set him off about the cigarettes. He denies any side effects to the medication. Mental Status Exam MSE Comments: This is a morbidly obese tall white male who appeared his stated age with poor eye contact and extremely poor hygiene. There was no evidence of any abnormal involuntary motor movements tics or tremors appreciated. There was continued psychomotor slowing. He was more cooperative with exam in mild distress on interview. Speech was more spontaneous with monotone quality with less speech latency. His mood was described as okay. His affect was brighter and had greater range. His thought process appeared linear. His thought content showed no evidence of homicidal or suicidal ideation. There was less evidence of concrete thinking. He did appear to be responding less to internal stimuli. There was continued evidence of paranoid ideation. His recent and remote memory was improving. His insight is limited but improving. His judgment is poor. His impulse control appeared impaired. He was alert and oriented to person and place . Vitals/I&O/Wt Last Vital Signs Temp 97.5 F L 04/08/23 14:00 Pulse 102 H 04/08/23 14:00 Resp 18 04/09/23 06:00 BP 154/84 04/08/23 14:00 Pulse Ox 96 04/08/23 14:00 O2 Del Method Room Air 04/08/23 06:00 A&P Assessment and plan (1) Schizophrenia: (2) Schizoaffective disorder: Plan 22-year-old male with a history of psychosis likely schizophrenia or schizoaffective disorder currently not taking his medications and actively psychotic. 1. Encourage individual, group and milieu therapy. 2. Recommend sober living treatment at the highest level of care to which the patient is willing to commit. 3. Continue q-15 minute checks for safety.? 4.?Patient on 90 day hold. Patient may benefit from clozaril therapy, but given agitation, aggression and need for frequent blood draws which patient refuses, this appears unlikely. . Continue Invega IM given.Both doses of invega IM given. 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 Started Abilify 10 mg p.o. daily aiming towards second long-acting injectable. Abilify Maintena 400 mg IM given today, 03/31/2023. He continues to take the oral medication which will assist in getting up to a stable dose. This morning 04/05/2023 he did refuse medication and have some aggression mostly verbal and was having reports from staff that he was being cozy with the door/exit 04/04/2023. Police were called for backup for the first time in nearly a week. Pt had a tough morning 04/06/2023 but was able to be redirected. Patient struggled with impulse control in the evening and code 10 was called 04/08/23. Ultimately PD was called that he was ultimately cooperative not requiring hands on by the police but he was given a as needed injection and then spent some time in seclusion. Involuntary Hold Information 96 Hour Hold: 96 Hour Involuntary Admission: No Attestations NPU Medical Necessity Statement*: Inpatient hospitalization is medically necessary and deemed to be the clinically appropriate intervention at this time. The patient will be started on medications and medications will be titrated as indicated. The patient's likely length of stay is 10-14 days. Coding Level of Care Code Acute Code for [facility] Fwd Diagnoses Schizophrenia F20.9 Schizoaffective disorder F25.9
[2023-04-09 14:00] VITALS: BP 155/90; PULSE 91; RESP 17; TEMP 36.7; O2SAT 97
[2023-04-09 21:18] VITALS: BP 155/95; PULSE 95; RESP 20; TEMP 36.3; O2SAT 96
[2023-04-09] MEDS: OLANZapine 5 mg ODT PO (21:33)
[2023-04-09] MEDS: nicotine 4 mg lozenge MUCOUS MEM (21:33)
[2023-04-10 06:00] VITALS: BP 122/80; PULSE 76; RESP 17; TEMP 36.4; O2SAT 98
--- NOTE | 2023-04-10 06:11 | PC.NURSE ---
PT WAS GIVEN ZYDIS 5 MG FOR INCREASED ANXIETY AND AGITATION EARLIER IN THE SHIFT. MEDICATIONS DEEMED EFFECTIVE. PT HAS SLEPT APPROXIMATELY 5-6 HOURS THIS SHIFT. PT HAS HAD NO OTHER COMPLAINTS OF ANXIETY.
--- NOTE | 2023-04-10 08:10 | PC.NURSE ---
PT CURRENTLY DENIES SI/HI. WHEN ASKED ABOUT AH/VH PT STATED I JUST AM HAVING A HARD TIME DETERMINING WHO IS A HIGHER POWER. PT DID NOT APPEAR TO BE RESPONDING TO INTERNAL STIMULI AT THE TIME OF ASSESSMENT. PT STATED TO THIS NURSE THAT HE REALLY WISHED THAT HE COULD GO HOME AND THAT HE WAS FEELING LONELY. THIS NURSE ASKED IF THERE WAS ANYTHING THAT MAY HELP. PT STATED I JUST WISH I HAD PROOF OF A HIGHER POWER. THIS NURSE ASKED IF PT WOULD LIKE A BIBLE AND PT AGREED THAT WOULD BE NICE. PT WAS PROVIDED A BIBLE. PT CURRENT NEEDS ARE MET AT THIS TIME.
[2023-04-10] MEDS: nicotine 2 mg Gum BUCCAL ×5 (08:33→21:33)
[2023-04-10] MEDS: ARIPiprazole 10 mg Tablet PO (08:33)
[2023-04-10 14:00] VITALS: BP 158/94; PULSE 108; RESP 17; TEMP 36.6; O2SAT 95
--- NOTE | 2023-04-10 16:29 | P.NPUPN_ITS ---
Subjective NPU Subjective: Patient presented today reporting that he is feeling okay. Last 24 hours without significant episodes per staff and he is building on the previous day. Continues to focus on just wanting to go home and we continue to discuss the markers that we are looking for to determine his readiness. He denied any side effects to the medication. Mental Status Exam MSE Comments: This is a morbidly obese tall white male who appeared his stated age with poor eye contact and extremely poor hygiene. There was no evidence of any abnormal involuntary motor movements tics or tremors appreciated. There was continued psychomotor slowing. He was more cooperative with exam in mild distress on interview. Speech was more spontaneous with monotone quality with less speech latency. His mood was described as okay. His affect was brighter and had greater range. His thought process appeared linear. His thought content showed no evidence of homicidal or suicidal ideation. There was less evidence of concrete thinking. He did appear to be responding less to internal stimuli. There was continued evidence of paranoid ideation. His recent and remote memory was improving. His insight is limited but improving. His judgment is poor. His impulse control appeared impaired. He was alert and oriented to person and place . Vitals/I&O/Wt Last Vital Signs Temp 97.8 F 04/10/23 14:00 Pulse 108 H 04/10/23 14:00 Resp 17 04/10/23 14:00 BP 158/94 04/10/23 14:00 Pulse Ox 95 04/10/23 14:00 O2 Del Method Room Air 04/10/23 06:00 A&P Assessment and plan (1) Schizophrenia: (2) Schizoaffective disorder: Plan 22-year-old male with a history of psychosis likely schizophrenia or schizoaffective disorder currently not taking his medications and actively psychotic. 1. Encourage individual, group and milieu therapy. 2. Recommend sober living treatment at the highest level of care to which the patient is willing to commit. 3. Continue q-15 minute checks for safety.? 4.?Patient on 90 day hold. Patient may benefit from clozaril therapy, but given agitation, aggression and need for frequent blood draws which patient refuses, this appears unlikely. . Continue Invega IM given.Both doses of invega IM given. 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 Started Abilify 10 mg p.o. daily aiming towards second long- acting injectable. Abilify Maintena 400 mg IM given today, 03/31/2023. He continues to take the oral medication which will assist in getting up to a stable dose. This morning 04/05/2023 he did refuse medication and have some aggression mostly verbal and was having reports from staff that he was being cozy with the door/exit 04/04/2023. Police were called for backup for the first time in nearly a week. Pt had a tough morning 04/06/2023 but was able to be redirected. Patient without seclusion or episode in the last 2 days. Involuntary Hold Information 96 Hour Hold: 96 Hour Involuntary Admission: No Attestations NPU Medical Necessity Statement*: Inpatient hospitalization is medically necessary and deemed to be the clinically appropriate intervention at this time. The patient will be started on medications and medications will be titrated as indicated. The patient's likely length of stay is 10-14 days. Coding Level of Care Code Acute Code for [facility] Diagnoses Schizophrenia F20.9 Schizoaffective disorder F25.9
[2023-04-10] MEDS: OLANZapine 5 mg ODT PO (21:33)
[2023-04-10 21:52] VITALS: BP 170/97; PULSE 102; RESP 18; TEMP 36.8; O2SAT 97
[2023-04-10 22:06] VITALS: BP 150/106; PULSE 116; RESP 20; O2SAT 97
--- NOTE | 2023-04-10 22:15 | PC.NURSE ---
IN ROOM SITTING ON BED GETTING VITALS COMPLETED. PT PULSE WAS 102 AND BP 179/97. PT EDUCATED THAT WE WOULD RECHECK VITALS IN AN HOUR OR SO TO SEE IF HIS BP GOES DOWN. PT STATED I GUESS THAT'S OK BUT NOTHINGS WRONG WITH MY HEART, THEIR STILL COLLECTING EVIDENCE TO SEE IF I'M SUPPOSE TO BE HERE OR IF THERES A HIGHER POWER AT ALL, PT DENIES SI/HI AND AVH AT THIS TIME. RATES ANXIETY AND DEPRESSION 12/10. ZYDIS 5 MG GIVEN ORDERED FOR INCREASED REPORTED ANXIETY. PT CONTINUES TO BE OBSERVED WITH DISORGANIZED THOUGHT PROCESS AND FLIGHT OF IDEAS. PTS VITALS RECHECKED AT 2130 BP 150/106 HR 116, REPORTED TO DR. LEIJA NEW ORDERS FOR METOPOROL 50 MG PO DAILY. PROVIDER CONCERNED IF PT WILL TAKE THE MEDICATION OR NOT. RN TO PROVIDE EDUCATION AND ENCOURAGE PT TO TAKE. ALL QUESTIONS ANSWERED AND SUPPORT WAS VOICED.
--- NOTE | 2023-04-11 00:03 | PC.NURSE ---
RN ATTEMPTED MANY TIMES TO EDUCATE PT ON NEED TO TAKE MEDICATION TO LOWER BLOOD PRESSURE. PT STATED NAH, I DON'T NEED IT, ITS REALLY NOT MY HEART THEY ARE JUST TRYING TO FIND THINGS SO THEY CAN COLLECT EVIDENCE AND KEEP ME HERE LONGER. I'VE BEEN HERE FOR 4 YEARS ALREADY BUT NO ITS NOT MY HEART. RN HAD ANOTHER NURSE GO AND ATTEMPT TO EDUCATED PT ON RISKS OF ELEVATED BP AND NEED TO TAKE MEDICATION TO LOWER IT. PT CONTINUES TO MAKE NONSENSICAL STATEMENTS. SUPPORT WAS VOICED. NOTIFIED NO FURTHER ORDERS RECEIVED.
[2023-04-11 06:00] VITALS: RESP 18
--- NOTE | 2023-04-11 06:23 | PC.NURSE ---
Attempted to obtain vitals from patient. Patient stated nah I'm good. This tech tried to let patient know that we have to monitor his IN and patient stated Nah, my heart rate is fine. RR documented.
--- NOTE | 2023-04-11 06:34 | PC.NURSE ---
PT WAS GIVEN ZYDIS 5 MG LAST NIGHT FOR INCREASED ANXIETY. MEDICATIONS DEEMED EFFECTIVE. PT WAS ABLE TO LAY DOWN AND REST AND SLEPT APPROXIMATELY 7 HOURS THIS SHIFT.
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
[2023-04-11] MEDS: metoprolol tartrate 50 mg Tablet PO (08:32)
[2023-04-11] MEDS: ARIPiprazole 10 mg Tablet PO (08:32)
[2023-04-11] MEDS: nicotine 2 mg Gum BUCCAL ×5 (08:33→19:43)
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
[2023-04-11 14:00] VITALS: BP 136/80; PULSE 117; RESP 16; TEMP 36.9; O2SAT 97
[2023-04-11] MEDS: OLANZapine 5 mg ODT PO (19:43)
[2023-04-11 21:21] VITALS: BP 122/81; PULSE 90; RESP 18; TEMP 37.1; O2SAT 97
[2023-04-12 06:00] VITALS: BP 138/89; PULSE 74; RESP 16; TEMP 36.7; O2SAT 97
--- NOTE | 2023-04-12 06:15 | W.PM.NPUPNS ---
Subjective NPU Subjective: Patient presented today continuing to focus on discharge and wondering when he would be able to leave. We discussed Dr. Covington returning and being able to make some independent decisions having not seen him for almost 2 weeks. We discussed continuing to work with his family who are trying to figure out what is best outpatient/discharge options are. He denied any side effects to medication. Mental Status Exam MSE Comments: This is a morbidly obese tall white male who appeared his stated age with poor eye contact and extremely poor hygiene. There was no evidence of any abnormal involuntary motor movements tics or tremors appreciated. There was continued psychomotor slowing. He was more cooperative with exam in mild distress on interview. Speech was more spontaneous with monotone quality with less speech latency. His mood was described as okay. His affect was brighter and had greater range. His thought process appeared linear. His thought content showed no evidence of homicidal or suicidal ideation. There was less evidence of concrete thinking. He did appear to be responding less to internal stimuli. There was continued evidence of paranoid ideation. His recent and remote memory was improving. His insight is limited but improving. His judgment is poor. His impulse control appeared impaired. He was alert and oriented to person and place . Vitals/I&O/Wt Last Vital Signs Temp 98.7 F 04/11/23 21:21 Pulse 90 04/11/23 21:21 Resp 18 04/11/23 21:21 BP 122/81 04/11/23 21:21 Pulse Ox 97 04/11/23 21:21 O2 Del Method Room Air 04/11/23 14:00 A&P Assessment and plan (1) Schizophrenia: (2) Schizoaffective disorder: Plan 22-year-old male with a history of psychosis likely schizophrenia or schizoaffective disorder currently not taking his medications and actively psychotic. 1. Encourage individual, group and milieu therapy. 2. Recommend sober living treatment at the highest level of care to which the patient is willing to commit. 3. Continue q-15 minute checks for safety.? 4.?Patient on 90 day hold. Patient may benefit from clozaril therapy, but given agitation, aggression and need for frequent blood draws which patient refuses, this appears unlikely. . Continue Invega IM given.Both doses of invega IM given. Patient likely requires penitentiary treatment with potential need for guardianship. Started Abilify 10 mg p.o. daily aiming towards second long-acting injectable. Abilify Maintena 400 mg IM given today, 03/31/2023. He continues to take the oral medication which will assist in getting up to a stable dose. This morning 04/05/2023 he did refuse medication and have some aggression mostly verbal and was having reports from staff that he was being cozy with the door/exit 04/04/2023. Police were called for backup for the first time in nearly a week. Pt had a tough morning 04/06/2023 but was able to be redirected. Patient without seclusion or episode in the last few days. Involuntary Hold Information 96 Hour Hold: 96 Hour Involuntary Admission: No Attestations NPU Medical Necessity Statement*: Inpatient hospitalization is medically necessary and deemed to be the clinically appropriate intervention at this time. The patient will be started on medications and medications will be titrated as indicated. The patient's likely length of stay is 10-14 days. Coding Level of Care Code Acute Code for [facility] Diagnoses Schizophrenia F20.9 Schizoaffective disorder F25.9
--- NOTE | 2023-04-12 08:07 | PC.NURSE ---
Patient denies si/hi and vh. He does endorse ah and says he hears stuff all the time. Mainly people and stuff like that. Nothing particular. Patient then asked this nurse, you ever feel like there's 15 people surrounding you. Like 4 or 5 all of the same and the rest like, whatever.
[2023-04-12] MEDS: metoprolol tartrate 50 mg Tablet PO (08:22)
[2023-04-12] MEDS: nicotine 2 mg Gum BUCCAL ×7 (08:23→23:22)
[2023-04-12] MEDS: ARIPiprazole 10 mg Tablet PO (08:23)
[2023-04-12 14:00] VITALS: RESP 18
--- NOTE | 2023-04-12 19:22 | PC.NURSE ---
Oneliayprexa Daniel was pulled and it crushed when opened so pt refused and did not want another. Wasted with Bianca FLOWER.
[2023-04-12 19:50] VITALS: BP 167/107; PULSE 148; RESP 20; TEMP 36.2; O2SAT 95
[2023-04-13 06:00] VITALS: BP 133/83; PULSE 77; RESP 16; O2SAT 96
[2023-04-13] MEDS: metoprolol tartrate 50 mg Tablet PO (10:46)
[2023-04-13] MEDS: nicotine 2 mg Gum BUCCAL ×5 (10:46→19:48)
[2023-04-13] MEDS: ARIPiprazole 10 mg Tablet PO (10:46)
--- NOTE | 2023-04-13 12:19 | PC.NURSE ---
Patient at window. Reports hearing staff say things that are crazy . This nurse informed patient that it is only me here and I have not been talking. Patient appears to be ramping up, talking about a staff member has been talking about people. This nurse attempted to re-orient patient to current situation. This nurse was able to distract patient by swapping jokes.
[2023-04-13 13:27] VITALS: BP 131/95; PULSE 107; RESP 16; O2SAT 93
--- NOTE | 2023-04-13 13:41 | PC.NURSE ---
Patient at window, saying I need a cigarette, I need a cigarette . Attempting to redirect patient.
--- NOTE | 2023-04-13 17:38 | P.NPUPN_ITS ---
Subjective NPU Subjective: 22-year-old male with schizophrenia curr ently on Abilify and Invega intramuscularly. Patient had reported that he continued to not do well. He reported some confusion in his head. He reported that he was distracted by his thoughts. Despite this, he had been less isolative in his room despite spending many hours there. He had expressed frustration with not being able to return home. He had expressed some interest in considering a video call with his family members as he stated that he missed his grandmother. Mental Status Exam MSE Comments: This is a morbidly obese tall white male who appeared his stated age with poor eye contact and extremely poor hygiene. There was no evidence of any abnormal involuntary motor movements tics or tremors appreciated. There was continued ps ychomotor slowing. He was more cooperative with exam in mild distress on interview. Speech was more spontaneous with monotone quality with continued increase in speech latency. His mood was described as not good. His affect was blunted. His thought process appeared linear. His thought content showed no evidence of homicidal or suicidal ideation. There was less evidence of concrete thinking. He did appear to be responding to internal stimuli. There was continued evidence of paranoia. His recent and remote memory was improving. His insight is limited but improving. His judgment is poor. His impulse control appeared impaired. He was alert and oriented to person and place . Vitals/I&O/Wt Last Vital Signs Temp 97.2 F L 04/12/23 19:50 Pulse 107 H 04/13/23 13:27 Resp 16 04/13/23 13:27 BP 131/95 04/13/23 13:27 Pulse Ox 93 04/13/23 13:27 O2 Del Method Room Air 04/12/23 06:00 A&P Assessment and plan (1) Schizophrenia: (2) Schizoaffective disorder: Plan 22-year-old male with a history of psychosis likely schizophrenia or schizoaffective disorder currently not taking his medications and actively psychotic. 1. Encourage individual, group and milieu therapy. 2. Recommend sober living treatment at the highest level of care to which the patient is willing to commit. 3. Continue q-15 minute checks for safety.? 4.?Patient on 90 day hold. Patient may benefit from clozaril therapy, but given agitation, aggression and need for frequent blood draws which patient refuses, this appears unlikely. . Continue Invega IM given.Both doses of invega IM given. 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 Started Abilify 10 mg p.o. daily aiming towards second long- acting injectable. Abilify Maintena 400 mg IM given today, 03/31/2023. He continues to take the oral medication which will assist in getting up to a stable dose. This morning 04/05/2023 he did refuse medication and have some aggression mostly verbal and was having reports from staff that he was being cozy with the door/exit 04/04/2023. Police were called for backup for the first time in nearly a week. Pt had a tough morning 04/06/2023 but was able to be redirected. Patient without seclusion or episode in the last few days. Involuntary Hold Information 96 Hour Hold: 96 Hour Involuntary Admission: No Attestations NPU Medical Necessity Statement*: Inpatient hospitalization is medically necessary and deemed to be the clinically appropriate intervention at this time. The patient will be started on medications and medications will be titrated as indicated. The patient's likely length of stay is 10-14 days. Coding Level of Care Code Acute Code for [facility] Fwd Diagnoses Schizophrenia F20.9 Schizoaffective disorder F25.9
[2023-04-13] MEDS: OLANZapine 5 mg ODT PO (19:45)
--- NOTE | 2023-04-13 19:49 | PC.NURSE ---
PT DROPPED GUM IN FLOOR. RN THREW AWAY AND THEN GOT PT ANOTHER PIECE OF GUM THAT WAS NOT DIRTY. PT ONLY RECEIVED ONE PIECE OF GUM.
--- NOTE | 2023-04-13 22:36 | PC.NURSE ---
PT AT DESK MULTIPLE TIMES WANTING NICOTINE GUM. RN GAVE PT GUM THEN PT DROPPED THE GUM. RN WENT TO ADMINISTER ANOTHER PIECE AND THEN RN DROPPED IT. PT WAS GIVEN A THIRD PIECE OF GUM AND DID NOT DROP. PT DENIES PAIN. DENIES SI/HI AN AVH AT THIS TIME. RATES ANXIETY AND DEPRESSION 12/10. PT WAS GIVEN ZYDIS 5MG ORDERED FOR INCREASED AGITATION AND ANXIETY. PT DID CALM AND WAS ABLE TO LAY DOWN AND REST. ALL QUESTIONS ANSWERED AND SUPPORT WAS VOICED.
[2023-04-14] MEDS: nicotine 2 mg Gum BUCCAL ×5 (01:05→18:13)
[2023-04-14 06:00] VITALS: BP 150/96; PULSE 88; RESP 18; O2SAT 98
--- NOTE | 2023-04-14 06:28 | PC.NURSE ---
PT WAS GIVEN ZYDIS 5 MG LAST SHIFT AT 194. MEDICATION DEEMED EFFECTIVE. PT SLEPT APPROXIMATELY 7-8 HOURS THIS SHIFT.
[2023-04-14] MEDS: ARIPiprazole 10 mg Tablet PO (07:29)
[2023-04-14] MEDS: metoprolol tartrate 50 mg Tablet PO (07:29)
--- NOTE | 2023-04-14 08:13 | PC.NURSE ---
During morning assessment, patient told this nurse that he likes the snow when he can roll a fatty and listen to music. Patient continued, saying that he likes music that he can relate to. Patient denies SI, HI, AVH, and anxiety. Patient reports depression because he is here.
[2023-04-14 14:00] VITALS: BP 145/94; PULSE 106; RESP 20; TEMP 36.2; O2SAT 98
--- NOTE | 2023-04-14 19:04 | P.NPUPN_ITS ---
Subjective NPU Subjective: 22-year-old male with schizophrenia curr ently on Abilify and Invega intramuscularly. By the presence of visual hallucinations. He had reported that he continued to have unusual thoughts. He had reported that he wished to go home. He had expressed some desire to engage in a conversation visually with his grandmother. He had been tolerant of his medications intramuscularly but still reported some suspicion over his food being contaminated. He had continued to require redirection and some prompting for completion of activities of daily living. He had been less isolative on the milieu. Mental Status Exam MSE Comments: This is a morbidly obese tall white male who appeared his stated age with fleeting eye contact and poor hygiene. There was no evidence of any abnormal involuntary motor movements tics or tremors appreciated. There was continued psychomotor slowing. He was more cooperative with exam in mild distress on interview. Speech was more spontaneous with monotone quality with continued increase in speech latency. His mood was described as okay today. His affect was blunted and mood incongruent. His thought process appeared linear but superficial. His thought content showed no evidence of homicidal or suicidal ideation. There was less evidence of concrete thinking. He did appear to be responding to internal stimuli. There was continued evidence of paranoia. His recent and remote memory was improving. His insight is limited but improving. His judgment is poor. His impulse control appeared impaired. He was alert and oriented to person and place but not time . Vitals/I&O/Wt Last Vital Signs Temp 97.2 F L 04/14/23 14:00 Pulse 106 H 04/14/23 14:00 Resp 20 H 04/14/23 14:00 BP 145/94 04/14/23 14:00 Pulse Ox 98 04/14/23 14:00 O2 Del Method Room Air 04/14/23 06:00 Weight last 48 hrs Weight 210.183 kg A&P Assessment and plan (1) Schizophrenia: (2) Schizoaffective disorder: Plan 22-year-old male with a history of psychosis likely schizophrenia or schi zoaffective disorder currently not taking his medications and actively psychotic. 1. Encourage individual, group and milieu therapy. 2. Recommend sober living treatment at the highest level of care to which the patient is willing to commit. 3. Continue q-15 minute checks for safety.? 4.?Patient on 90 day hold. Patient may benefit from clozaril therapy, but given agitation, aggression and need for frequent blood draws which patient refuses, this appears unlikely. . Continue Invega IM given.Both doses of invega IM given. 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 Started Abilify 10 mg p.o. daily aiming towards second long- acting injectable. Abilify Maintena 400 mg IM given today, 03/31/2023. He continues to take the oral medication which will assist in getting up to a stable dose. This morning 04/05/2023 he did refuse medication and have some aggression mostly verbal and was having reports from staff that he was being cozy with the door/exit 04/04/2023. Police were called for backup for the first time in nearly a week. Guardianship remains an option. Involuntary Hold Information 96 Hour Hold: 96 Hour Involuntary Admission: No Attestations NPU Medical Necessity Statement*: Inpatient hospitalization is medically necessary and deemed to be the clinically appropriate intervention at this time. The patient will be started on medications and medications will be titrated as indicated. The patient's likely length of stay is 10-14 days. Coding Level of Care Code Acute Code for [facility] Fwd Diagnoses Schizophrenia F20.9 Schizoaffective disorder F25.9
[2023-04-14 20:43] VITALS: BP 151/106; PULSE 110; RESP 18; O2SAT 98
--- NOTE | 2023-04-14 22:23 | PC.NURSE ---
Patient Behavior Patient kept asking fora bag of chips which we did not have any at that time. He stated he was going to get mad if we did not get him a bag of chips.
[2023-04-15 06:00] VITALS: RESP 20
--- NOTE | 2023-04-15 06:27 | PC.NURSE ---
Attempted to obtain patients vitals. Patient stated Nah I'm good RR documented.
[2023-04-15] MEDS: nicotine 2 mg Gum BUCCAL ×4 (06:41→18:32)
--- NOTE | 2023-04-15 09:46 | PC.NURSE ---
During morning assessment, patient denied all. Patient said that someone's saying something on otherside of the fence, saying I didnt do my job as a parent. Patient also said, the subs are right there, right across the nose line to the catholic. Patient went on to say, the whole point is dialect. It's basically what the brain does see and doesn't see. Patient appears fatigued. Patient cooperative, delusional.
[2023-04-15] MEDS: ARIPiprazole 10 mg Tablet PO (13:52)
[2023-04-15] MEDS: metoprolol tartrate 50 mg Tablet PO (13:53)
[2023-04-15 14:00] VITALS: BP 141/80; PULSE 86; RESP 18; TEMP 36.6; O2SAT 95
[2023-04-15] MEDS: acetaminophen 325 mg Tablet 650 MG PO (16:33)
--- NOTE | 2023-04-15 17:15 | P.NPUPN_ITS ---
Subjective NPU Subjective: 22-year-old male with schizophrenia curr ently on Abilify and Invega intramuscularly. He continued to appear preoccupied by his hallucinations and remained isolative. He had reported a desire to leave the hospital. He had reported feeling tired. He had been able to sleep. There was no of recent acts of aggression. He continued to require significant prompting for completion of activities of daily living. He had spent less time the day in his room. Mental Status Exam MSE Comments: This is a morbidly obese tall white male who appeared his stated age with fleeting eye contact and poor hygiene. There was no evidence of any abnormal involuntary motor movements tics or tremors appreciated. There was continued psychomotor slowing. He was minimally cooperative with exam in mild to moderate distress on interview. Speech was more spontaneous with monotone quality with continued increase in speech latency. His mood was described as allright. His affect was blunted and mood incongruent. His thought process appeared linear but superficial. His thought content showed no evidence of homicidal or suicidal ideation. There was a poverty of content. There was less evidence of concrete thinking. He continued to be responding to internal stimuli. There was continued evidence of paranoia. His recent and remote memory was improving. His insight is limited but improving. His judgment is poor. His impulse control appeared impaired. He was alert and oriented to person and place but not time . Vitals/I&O/Wt Last Vital Signs Temp 98 F 04/15/23 14:00 Pulse 86 04/15/23 14:00 Resp 18 04/15/23 14:00 BP 141/80 04/15/23 14:00 Pulse Ox 95 04/15/23 14:00 O2 Del Method Room Air 04/14/23 06:00 A&P Assessment and plan (1) Schizophrenia: (2) Schizoaffective disorder: Plan 22-year-old male with a history of psychosis likely schizophrenia or schizoaffective disorder currently not taking his medications and actively psychotic. 1. Encourage individual, group and milieu therapy. 2. Recommend sober living treatment at the highest level of care to which the patient is willing to commit. 3. Continue q-15 minute checks for safety.? 4.?Patient on 90 day hold. Patient on abilify IM 400mg monthly along with Invega IM 156mg monthly. Involuntary Hold Information 96 Hour Hold: 96 Hour Involuntary Admission: No Attestations NPU Medical Necessity Statement*: Inpatient hospitalization is medically necessary and deemed to be the clinically appropriate intervention at this time. The patient will be started on medications and medications will be titrated as indicated. The patient's likely length of stay is 10-14 days. Coding Level of Care Code Acute Code for [facility] Fwd Diagnoses Schizophrenia F20.9 Schizoaffective disorder F25.9
[2023-04-15 19:49] VITALS: BP 137/91; PULSE 91; RESP 18; TEMP 36.4; O2SAT 98
[2023-04-15] MEDS: nicotine 4 mg lozenge MUCOUS MEM (20:11)
[2023-04-15] MEDS: OLANZapine 5 mg ODT PO (20:11)
[2023-04-16 06:00] VITALS: RESP 18
--- NOTE | 2023-04-16 06:07 | PC.NURSE ---
Attempted to obtain patients vitals. Patient stated Nah I'm good. RR documented.
[2023-04-16] MEDS: ARIPiprazole 10 mg Tablet PO (09:27)
[2023-04-16] MEDS: metoprolol tartrate 50 mg Tablet PO (09:27)
[2023-04-16] MEDS: nicotine 2 mg Gum BUCCAL ×3 (09:35→18:19)
[2023-04-16] MEDS: paliperidone palmitate 156 mg Syringe IM (11:45)
--- NOTE | 2023-04-16 11:46 | PC.NURSE ---
Patient was administered invega 156 IM in right deltoid and tolerated well. Is now eating lunch on bench near nurses' station.
[2023-04-16 14:00] VITALS: BP 132/73; PULSE 98; RESP 16; TEMP 36.8; O2SAT 98
--- NOTE | 2023-04-16 15:34 | W.PM.NPUPNS ---
Subjective NPU Subjective: 22-year-old male with schizophrenia currently on Abilify and Invega intramuscularly. He continued to refuse oral medications. He did appear to have a virtual visit with his maternal grandmother and was hopeful that his grandmother might come here to take him home on Friday. He had appeared more interactive on the milieu but still remained guarded for the most part. He had reported adequate sleep. He had reported that he continued to be distracted by his thoughts but appeared more socially engaged and more easily able to engage in his self-care. He had expressed desire to return home. He had continued to require some prompting for cleaning his room. Mental Status Exam MSE Comments: This is a morbidly obese tall white male who appeared his stated age with fleeting eye contact and poor hygiene. There was no evidence of any abnormal involuntary motor movements tics or tremors appreciated. There was continued psychomotor slowing. He was minimally cooperative with exam in mild to moderate distress on interview. Speech was more spontaneous with monotone quality with continued increase in speech latency. His mood was described as okay. His affect was blunted and mood incongruent. His thought process appeared linear but superficial. His thought content showed no evidence of homicidal or suicidal ideation. There was a poverty of content. There was less evidence of concrete thinking. He continued to be responding to internal stimuli. There was continued evidence of paranoia. His recent and remote memory was improving. His insight is limited but improving. His judgment remained poor. His impulse control appeared poor. He was alert and oriented to person and place but not time . Vitals/I&O/Wt Last Vital Signs Temp 98.3 F 04/16/23 14:00 Pulse 98 04/16/23 14:00 Resp 16 04/16/23 14:00 BP 132/73 04/16/23 14:00 Pulse Ox 98 04/16/23 14:00 O2 Del Method Room Air 04/16/23 14:00 A&P Assessment and plan (1) Schizophrenia: (2) Schizoaffective disorder: Plan 22-year-old male with a history of psychosis likely schizophrenia or schizoaffective disorder currently not taking his medications and actively psychotic. 1. Encourage individual, group and milieu therapy. 2. Recommend sober living treatment at the highest level of care to which the patient is willing to commit. 3. Continue q-15 minute checks for safety.? 4.?Patient on 90 day hold. Patient on abilify IM 400mg monthly along with Invega IM 156mg monthly. Involuntary Hold Information 96 Hour Hold: 96 Hour Involuntary Admission: No Attestations NPU Medical Necessity Statement*: Inpatient hospitalization is medically necessary and deemed to be the clinically appropriate intervention at this time. The patient will be started on medications and medications will be titrated as indicated. The patient's likely length of stay is 3-5 days. Coding Level of Care Code Acute Code for [facility] Fwd Diagnoses Schizophrenia F20.9 Schizoaffective disorder F25.9
[2023-04-16] MEDS: nicotine 4 mg lozenge MUCOUS MEM (20:39)
--- NOTE | 2023-04-16 21:14 | PC.NURSE ---
IN DAY ROOM. PT STATES HE IS WATCHING TV, BUT TV IS TURNED OFF. DENIES SI/HI AND AVH AT THIS TIME. RATES DEPRESSION 0/10 AND ANXIETY 10/10. PT IS NEGATIVE WITH STAFF. STAFF OFFERED TO LET PT LISTEN TO MUSIC TO CALM. PT AGREED AND IS OBSERVED BEING IN BETTER SPIRITS. ALL QUESTIONS ANSWERED AND SUPPORT WAS VOICED. DENIES PAIN.
[2023-04-16 21:18] VITALS: RESP 18
--- NOTE | 2023-04-16 21:18 | PC.NURSE ---
Attempted to obtain patients vitals. Patient stated Nah I'm just fine RR documented.
[2023-04-17 06:00] VITALS: RESP 18
--- NOTE | 2023-04-17 06:23 | PC.NURSE ---
PT WAS UP THE MAJORITY OF THE SHIFT. PT DID GO TO ROOM AND LAY DOWN AND WAS OBSERVED FIDGETING WITH TRASH AND ITEMS IN HIS ROOM AROUND 230 AM. PT FELL ASLEEP APPROXIMATELY AT 0315 AM. PT CONTINUES TO REST WITH EYES CLOSED WITH NO DISTRESS NOTED. PT SLEPT APPROXIMATELY 3 HOURS THIS SHIFT. PRN MEDICATIONS WERE OFFERED BUT PT CONTINUED TO DECLINE DESPITE SLEEP PROMOTION EDUCATION. NURSE TECH IN ROOM FOR 600 AM VITALS, PT REFUSED AND DECLINES TO HAVE ANY VITALS TAKEN THIS AM. RESPIRATION 16.
--- NOTE | 2023-04-17 06:35 | PC.NURSE ---
Attempted to obtain vitals from patient. Patient refused. RR documented.
[2023-04-17] MEDS: metoprolol tartrate 50 mg Tablet PO (09:53)
[2023-04-17] MEDS: ARIPiprazole 10 mg Tablet PO (09:53)
[2023-04-17] MEDS: nicotine 2 mg Gum BUCCAL ×2 (12:33→18:06)
[2023-04-17 14:00] VITALS: BP 121/71; PULSE 66; RESP 17; TEMP 36.7; O2SAT 97
--- NOTE | 2023-04-17 15:27 | W.PM.NPUPNS ---
Subjective NPU Subjective: 22-year-old male with schizophrenia currently on Abilify and Invega intramuscularly. He continued to refuse oral medications. He had engaged in self-care including showering. He had expressed that he felt better about going home and states that he would try to take his medications after he was discharged from here. He denied any depressed mood. He denied any thoughts of hurting himself or others. He had reported adequate motivation. He had continued to spend most of his day in his room sleeping but described feeling bored And stating that he preferred to sleep to avoid getting into trouble here Mental Status Exam MSE Comments: This is a morbidly obese tall white male who appeared his stated age with fleeting eye contact and improved hygiene. There was no evidence of any abnormal involuntary motor movements tics or tremors appreciated. There was continued psychomotor slowing. He was cooperative with exam in mild on interview. Speech was more spontaneous with monotone quality with continued increase in speech latency. His mood was described as okay. His affect was blunted and mood incongruent. His thought process appeared linear but superficial. His thought content showed no evidence of homicidal or suicidal ideation. There was a poverty of content. There was less evidence of concrete thinking. He continued to be responding to internal stimuli. There was no clear evidence of delusions today. His recent and remote memory was improving. His insight is limited but improving. His judgment remained limited. His impulse control appeared poor. He was alert and oriented to person and place but not time . Vitals/I&O/Wt Last Vital Signs Temp 98.3 F 04/16/23 14:00 Pulse 98 04/16/23 14:00 Resp 18 04/17/23 06:00 BP 132/73 04/16/23 14:00 Pulse Ox 98 04/16/23 14:00 O2 Del Method Room Air 04/16/23 14:00 A&P Assessment and plan (1) Schizophrenia: (2) Schizoaffective disorder: Plan 22-year-old male with a history of psychosis likely schizophrenia or schizoaffective disorder currently not taking his medications and actively psychotic. 1. Encourage individual, group and milieu therapy. 2. Recommend sober living treatment at the highest level of care to which the patient is willing to commit. 3. Continue q-15 minute checks for safety.? 4.?Patient on 90 day hold. Patient on abilify IM 400mg monthly along with Invega IM 156mg monthly. 5. Plan for discharge tommorow. Involuntary Hold Information 96 Hour Hold: 96 Hour Involuntary Admission: No Attestations NPU Medical Necessity Statement*: Inpatient hospitalization is medically necessary and deemed to be the clinically appropriate intervention at this time. The patient will be started on medications and medications will be titrated as indicated. The patient's likely length of stay is 1-2 days. Coding Level of Care Code Acute Code for [facility] Fw Diagnoses Schizophrenia F20.9 Schizoaffective disorder F25.9
[2023-04-17 20:06] VITALS: BP 139/104; PULSE 139; RESP 18; TEMP 36.6; O2SAT 96
[2023-04-17] MEDS: nicotine 4 mg lozenge MUCOUS MEM (20:22)
[2023-04-17] MEDS: OLANZapine 5 mg ODT PO (20:22)
--- NOTE | 2023-04-17 20:40 | PC.NURSE ---
UP TO NURSES STATION SEVERAL TIMES DEMANDING NICOTINE NOW, AND I NEED MORE HOT TEA. PT HAS BEEN GIVEN 3 GLASSES OF HOT TEA AND WAS EDUCATED IT WAS NOT TIME FOR NICOTINE YET. PT IS OBSERVED HAVING INCREASED ANXIETY AND DELUSIONAL. PT DENIES SI/HI AND AVH AT THIS TIME. RATES ANXIETY 10/10 AND DEPRESSION 10/10. ZYDIS 5 MG WAS GIVEN ORDERED FOR INCREASED ANXIETY RATED 10/10. PT OBSERVED TO HAVE ANXIOUS AND IRRITABLE MOOD THIS SHIFT. ALL QUESTIONS ANSWERED AND SUPPORT WAS VOICED. DENIES PAIN.
[2023-04-18 06:00] VITALS: RESP 18
--- NOTE | 2023-04-18 06:20 | PC.NURSE ---
PT WAS GIVEN ZYDIS 5 MG EARLY IN THE SHIFT FOR OBSERVED INCREASE IN ANXIETY. PT OBSERVED PACING AND SHADOW BOXING WITH THE WALL. MEDICATION DEEMED EFFECTIVE. PT WAS ABLE TO CALM, LAY DOWN AND REST FOR APPROXIMATELY 6- 7 HOURS THIS SHIFT. PT CONTINUES TO REST IN BED WITH EYES CLOSED WITH NO DISTRESS NOTED AT THIS TIME
--- NOTE | 2023-04-18 06:29 | PC.NURSE ---
Patient refused vitals. RR documented.
[2023-04-18] MEDS: ARIPiprazole 10 mg Tablet PO (08:20)
[2023-04-18] MEDS: nicotine 2 mg Gum BUCCAL ×3 (08:20→12:26)
[2023-04-18] MEDS: metoprolol tartrate 50 mg Tablet PO (08:20)
--- NOTE | 2023-04-18 12:23 | P.NPUDS_ITS ---
Diagnoses at Discharge Discharge Diagnosis (1) Schizophrenia: Status: Acute (2) Schizoaffective disorder: Status: Acute Reason for Visit Reason for Visit: Manic-Schi Brief History: History of Present Illness Giovanni Bo is a 22 year old male who presented initially to [facility] ED in [facility] with disorganized thinking and disorganized behavior. The patient was transferred to the neuropsychiatric unit in [facility] for further treatment and diagnostic clarification. Patient reports that he has been hospitalized more than 20 times and per records he has been previously prescribed monthly injections for treating schizophrenia but had stopped the injection a few months ago. The patient's mother had corroborated this information and stated that the patient had been residing with the grandmother and had been more agitated while making physical threats to throw objects at the grandmother. Patient acknowledges that he resides with his grandmother and states that he has been gaining weight. He reports that he had previously been treated through [facility] in [facility]. He reports that he hears several voices in his head and stated that it interferes with his thoughts. He reports that he struggles with knowing the difference between reality and fantasy. Patient reports that he has been in the hospital for several days and appeared somewhat confused during the initial evaluation. Inpatient psychiatric history: He had acknowledged having been diagnosed with schizophrenia and states he has been hospitalized more than 20 times throughout his life. Outpatient psychiatric history: Followed by [facility] per patient in [place]. Previous medications-schizoaffective disorder. Drug and alcohol history: He had reported previously using marijuana but states that he uses no drugs or alcohol currently. Allergies: No known drug allergies Surgical history: None reported Medical history: He reports a history of a back injury with some history of disc herniation, history of morbid obesity Current medications: None Family psychiatric history: None Social history: He is a 2 pack/day smoker lives with his grandparents. He has 2 brothers and 1 sister. He dropped out of school in the 12th grade. He reports that he was raised by his grandparents. He had denied any history of abuse. He had reported having some difficulties with learning growing up. Hospital Course Hospital Course The patient had significant problems with managing his anger and impulse control. He had required seclusions and restraints during his hospital stay. He had presented psychotic for much of his hospital stay and was ultimately deemed to be in need of forced medications through the court. He was placed on an extended hold for up to 90 days eventually. He appeared to slowly respond to the combination of Invega Sustenna along with Abilify Maintena together as he had refrained from the use of any oral medications for much of his hospitalization. the patient had routine laboratory studies which were within normal limits except for a few outliers.? Additionally, there was a general medical evaluation which was also within normal limits and revealed no new acute processes.? At the time of discharge, lethality was denied and psychosis was resolving.? Mood and anxiety were well managed.? The patient endorsed a plan to avoid all drugs of abuse and follow up with the aftercare recommendations of the treatment team.? The patient was evaluated and deemed to be absent credible lethality and had achieved the maximum benefit from an inpatient hospitalization, and so was discharged. The patient's weld technician was informed of the necessity of the patient to continue to take his intramuscular medications at the date that they were to be given by a physician or a nurse. Involuntary Hold Information 96 Hour Hold: 96 Hour Involuntary Admission: No Mental Status Exam MSE Comments: This is a morbidly obese tall white male who appeared his stated age with fleeting eye contact and improved hygiene. There was no evidence of any abnormal involuntary motor movements tics or tremors appreciated. He was cooperative with exam in mild on interview. Speech was more spontaneous with monotone quality with continued evidence of increased speech latency. His mood was described as good. His affect remained blunted. His thought process appeared linear. His thought content showed no evidence of homicidal or suicidal ideation. He did not appear to be responding to internal stimuli. There was no clear evidence of delusions today. His recent and remote memory was improving. His insight is limited but improving. His judgment remained limited. His impulse control appeared poor. He was alert and oriented to person and place and time. Discharge Data Studies Completed and Pending: Completed Studies During Hospitalization Category Date Time Status XR hand RT min 3V * [id number] Routine Exams 03/24/23 12:51 Completed Vitals: Last Vital Signs Temp 97.9 F 04/17/23 20:06 Pulse 139 H 04/17/23 20:06 Resp 18 04/18/23 06:00 BP 139/104 04/17/23 20:06 Pulse Ox 96 04/17/23 20:06 O2 Del Method Room Air 04/17/23 20:06 Discharge Plan Discharge Patient Disposition: Home Condition: Stable Prescriptions: New aripiprazole 10 mg Tablet 10 mg PO DAILY 30 Days Qty: 30 1RF Invega Sustenna 156 mg/mL syringe 156 mg IM Q30D Qty: 1 1RF Rx Instructions: Patient to receive this medication IM by nurse or physician on 05/12/23 Abilify Maintena 400 mg suspension,extended rel recon 400 mg IM Q28D Qty: 1 1RF Rx Instructions: Patient to be given medication IM on 04/28/23 by physician or nurse. Discharge Orders: Discharge Order (Routine); Ordered 04/18/23 Ordered By: Macho Covington Referrals: [facility] [Other] (Open access intake from 8:00 am to 3:00 pm Friday through Friday. ) [facility] Campuzano NP [Other] - 04/25/23 1:00 pm (Establishing care and Hospital follow up. ) [facility] [Other] ( Open 24 hours ) Discharge Diet: Usual diet Discharge Activity: Resume usual activity Patient Instructions: Aripiprazole (By mouth), Schizophrenia (DC), Opioid Safety Discharge Attestations NPU Time Spent in Discharge Care*: less than 30 min Specific Discharge Activities: Specific discharge activities: educating patient and documenting/other paperwork Coding Level of Care Code Acute Code for [facility] Fwd Diagnoses Schizophrenia F20.9 Schizoaffective disorder F25.9
[2023-04-18 13:20] VITALS: RESP 18
== END 2023-04-18 14:59 | disposition home or self-care (01) | DRG 885 ==
PROVIDERS: Admitting Provider Psychiatry & Neurology Psychiatry; Visit Provider Psychiatry & Neurology Psychiatry
DX: F20.9 Schizophrenia, unspecified (principal); Z68.44 Body mass index [BMI] 60.0-69.9, adult; Z91.148 Patient's other noncompliance with medication regimen for other reason; F17.210 Nicotine dependence, cigarettes, uncomplicated; F12.91 Cannabis use, unspecified, in remission; E66.01 Morbid (severe) obesity due to excess calories; Z78.1 Physical restraint status
CPT/HCPCS: 73130; 96372; 97150; 97165; J1200; J1630; J2060; J3486